=== PATIENT | male | born 1960 | race Caucasian/White ===

== ENCOUNTER 2017-06-06 05:15 | Inpatient (IN) | payer OTHER ==
[2017-06-06] VITALS (20 sets, daily range): BP systolic 106–149; BP diastolic 55–90; PULSE 52–90; RESP 15–32; Ht 170.2 cm; Wt 73.1 kg
[~2017-06-06] VITALS: Ht 170.2 cm; Wt 73.1 kg
--- NOTE | 2017-06-06 05:59 | RADRPT ---
PROCEDURE: XR Chest. CLINICAL INDICATION: Preoperative, sigmoid colon cancer TECHNIQUE: Single frontal view of the chest was obtained COMPARISON: None FINDINGS: The heart and mediastinum are within normal limits. There is mild left lower lobe linear atelectasis. The lungs are otherwise clear. There is no pleural effusion or pneumothorax. RPTAT: AA IMPRESSION: Mild left lower lobe linear atelectasis. .Anil Latif MD, MD Date Time Electronically viewed and signed by .Anil Latif MD, on 06/06/2017 05:58 .S/
[2017-06-06 06:30] LABS: BASOPHILS % 0.5 % (0.0-2.0); EOSINOPHILS # 0.1 10^3/ul (0.0-0.5); EOSINOPHILS % 1.2 % (0.0-7.0); HEMATOCRIT 37.8 % (42.0-52.0); HEMOGLOBIN 12.9 g/dl (14.0-18.0); LYMPHOCYTES # 1.4 10^3/ul (0.8-2.9); LYMPHOCYTES % 23.3 % (15.0-51.0); MEAN CORPUSCULAR HEMOGLOBIN 30.4 pg (29.0-33.0); MEAN CORPUSCULAR HGB CONC 34.1 g/dl (32.0-37.0); MEAN CORPUSCULAR VOLUME 89.2 fl (82.0-101.0); MEAN PLATELET VOLUME 9.5 fl (7.4-10.4); MONOCYTE # 0.4 10^3/ul (0.3-0.9); MONOCYTES % 6.7 % (0.0-11.0); NEUTROPHILS % 68.1 % (39.0-77.0); PLATELET COUNT 169 10^3/UL (140-415); RED BLOOD COUNT 4.24 10^6/ul (4.70-6.10); RED CELL DISTRIBUTION WIDTH 13.3 % (11.5-14.5)
[2017-06-06 06:51] LABS: INR 1.05; PROTIME 13.7 Sec (12.2-14.2); PT RATIO 1.1
[2017-06-06 06:52] LABS: PARTIAL THROMBOPLASTIN TIME 30.2 Sec (25.0-35.0)
[2017-06-06 07:09] LABS: ALBUMIN/GLOBULIN RATIO 1.33; BILIRUBIN,INDIRECT 0.6 mg/dl (0-1.1); BILIRUBIN,TOTAL 0.6 mg/dl (0.2-1.3)
[2017-06-06 07:18] LABS: CREATININE 0.78 mg/dl (0.61-1.24); POTASSIUM 3.9 mmol/L (3.5-5.1)
[2017-06-06] MEDS ORDERED: MIDAZOLAM 1 MG/ML 2 ML INJ ONE (07:48)
[2017-06-06] MEDS ORDERED: morphine SULFATE/PF (10 MG/10 ML) INJ ONE (07:49)
[2017-06-06] MEDS ORDERED: AMPICILLIN/SULB 3 GM/NS (PMX) 100 ML IVPB ONE (08:46)
[2017-06-06] MEDS ORDERED: BUPIVACAINE 0.25%/EPI (SDV) 30 ML INJ ONE (09:02)
--- NOTE | 2017-06-06 11:31 | SIPON ---
Date/Time of Note Date/Time of Note DATE: 06/06/17 TIME: 11:30 Operative Report Preoperative Diagnosis Invasive rectosigmoid cancer Postoperative Diagnosis Same Operation/Procedure Performed Exploratory laparotomy mobilization of left colon with mobilization of the splenic flexure resection of rectal low anterior resection of rectal cancer Surgeon: CAT ECHOLS MD clinical lab assistant: ISAMAR GODINEZ MD Anesthesia Type: general Estimated Blood Loss: 100 - 150 ml's Transfusion Required: no Specimens Rectosigmoid colon specimen Grafts/Implants: none Complications: no CAT ECHOLS MD Jun 06, 2017 11:31
[2017-06-06] MEDS: D5W-0.45 NACL + KCL 20 MEQ 1,000 ML IV SCH ×2 (11:32→19:31)
[2017-06-06] MEDS ORDERED: LIDOCAINE 2% (SDV) 5 ML INJ ONE (11:44)
[2017-06-06] MEDS ORDERED: GLYCOPYRROLATE 0.4 MG INJ ONE (11:44)
[2017-06-06] MEDS ORDERED: PROPOFOL 20 ML ONE (11:44)
[2017-06-06] MEDS ORDERED: ROCURONIUM 50 MG INJ ONE (11:44)
[2017-06-06] MEDS ORDERED: NEOSTIGMINE 3 MG/3 ML SYRINGE ONE (11:44)
[2017-06-06] MEDS ORDERED: ONDANSETRON 4 MG INJ ONE ×2 (11:45→12:28)
[2017-06-06] MEDS ORDERED: morphine 1 MG/ML 30 ML (PCA) IV SCH (12:00)
--- NOTE | 2017-06-06 12:07 | OPR ---
DATE OF OPERATION: 06/06/2017 PREOPERATIVE DIAGNOSIS: Rectosigmoid cancer. POSTOPERATIVE DIAGNOSIS: Rectal cancer. OPERATION PERFORMED: Exploratory laparotomy, mobilization of left colon with mobilization of the splenic flexure and low anterior colon resection, rigid sigmoidoscopy. ANESTHESIA: General. ANESTHESIOLOGIST: Dr. Briseno. SURGEON: Dr. Thayer. RECREATION MANAGER: Dr. Farrukh Ni. INDICATIONS FOR PROCEDURE: The patient is an unfortunate 57-year- old male, who presented with rectal bleeding for approximately 2 months. Ventral workup including colonoscopy revealed a large malignancy thought to be about 10 cm from the anal verge. The patient was counseled as to the risks versus benefits of surgery, consented and was scheduled for surgery. OPERATIVE PROCEDURE: On the evening before surgery, the patient was instructed to take a bowel prep, which he successfully completed. On the morning of surgery, he was brought to the operating theater. An epidural catheter was placed. He was then placed under general endotracheal tube anesthesia. Witt catheter was also placed. The abdomen was shaved, prepped and draped in usual sterile fashion. The patient was also placed into the lithotomy position. A lower midline incision was made with 15 blade scalpel. Subcutaneous tissue was dissected with cautery down to the anterior rectus sheath. The linea alba was incised and the abdomen was entered without difficulty. The fascia was then incised throughout the length of the incision. The Bookwalter retractor was placed. Excellent exposure was obtained. The patient was put in Trendelenburg position to facilitate packing away the small intestine to the upper quadrants of the abdomen. Mobilization of the left colon then took place by incising the left white line of Toldt. This continued up into the splenic flexure. The splenic flexure was further mobilized. The pelvis was inspected. The tumor was lower than anticipated. It was approximately 5 cm above the anal verge. Perineum on either side of the rectum was incised with cautery and dissection continued anteriorly until the rectum was mobilized sufficiently. At this point, a suitable point of transection of the rectosigmoid colon was identified, cleared of its mesentery and it was transected with a JOVANNY stapler. A meticulous dissection of the mesorectum then took place with combination of cautery and the LigaSure device. With the rectum fully mobilized to a point approximately 5 cm below the palpable tumor, the rectum was transected distally using the contour TA stapler. Attending pathologist, Dr. Elisa Marquez, came into the room and took the specimen. He performed gross analysis and stated that the margins were clear by at least 5 cm both proximally and distally. At this point, the specimen was sent for permanent pathologic analysis. The pelvis was irrigated. Minimal bleeding was controlled with cautery. The sigmoid colon was then elevated. The staple line was transected with cautery and the sizers were used. It was determined that the size 29 EEA stapler would be suitable. The #29 anvil was then placed into the open end of the sigmoid colon and a pursestring suture of 2-0 Prolene was placed and tied down in the standard fashion. Dr. Thayer then went below and dilated the colon with the Sizer devices and then the EEA was then inserted and the anastomosis was created with the EEA in the standard fashion. Rigid colonoscopy was then performed while the pelvis was filled with warm saline. There was no evidence of leak. At this point, Dr. Thayer re-scrubbed and gowned and gloved, and returned to the abdomen. Final irrigation and inspection took place. There was no evidence of bleeding. An NG-tube was placed, and palpated to ensure it was in proper location within the stomach. The Bookwalter retractor and all laps and sponges were removed. Lap, sponge, and instrument counts were correct. The lower midline fascial incision was then reapproximated with #1 looped PDS sutures in running fashion. The wound was then irrigated with Betadine and the skin was reapproximated with skin shaheen. The patient tolerated the procedure well. ESTIMATED BLOOD LOSS: Approximately 150 cc. COMPLICATIONS: There were no complications. DISPOSITION: The patient was transported in stable condition to the recovery room. Dictated By: Jaswinder Thayer MD /paola/erika /Document#: [id number]
[2017-06-06] MEDS ORDERED: ALBUTEROL 0.083% (NEB) 2.5 MG/3 ML AMP HHN STA (12:10)
[2017-06-06] MEDS ORDERED: FENTAnyl 2MCG/ML-ROPIV 0.2% 0 ML ONE (12:14)
[2017-06-06] MEDS ORDERED: FENTAnyl 50 MCG/ML VIAL ONE (12:27)
[2017-06-06] MEDS ORDERED: MEPERIDINE 25 MG INJ ONE (12:28)
[2017-06-06] MEDS ORDERED: NALOXONE (0.4 MG/ML) INJ IV PRN (12:30)
[2017-06-06] MEDS ORDERED: MEPERIDINE 25 MG INJ IV PRN (12:30)
[2017-06-06] MEDS ORDERED: DIPHENHYDRAMINE 50 MG INJ IV PRN (12:30)
[2017-06-06] MEDS ORDERED: FENTAnyl 50 MCG/ML VIAL IV PRN (12:30)
[2017-06-06] MEDS ORDERED: ONDANSETRON 4 MG INJ IV PRN (12:30)
[2017-06-06] MEDS ORDERED: morphine (1 MG/ML) 10ML SYRINGE IV PRN (12:30)
[2017-06-06] MEDS ORDERED: ALBUTEROL 0.083% (NEB) 2.5 MG/3 ML AMP HHN PRN (12:30)
[2017-06-06] MEDS: ONDANSETRON 4 MG INJ IV PRN (12:45)
[2017-06-06] MEDS: LORAZEPAM 2 MG INJ IV PRN (17:06)
[2017-06-06] MEDS: ALBUTEROL 0.083% (NEB) 2.5 MG/3 ML AMP HHN PRN ×2 (17:48→23:51)
[2017-06-06] MEDS: FENTAnyl 2MCG/ML-ROPIV 0.2% 100 ML BAG EPI SCH (18:44)
--- NOTE | 2017-06-06 21:04 | HP ---
DATE OF ADMISSION: 06/06/2017 CHIEF COMPLAINT: Patient is a 57-year-old gentleman who was recently admitted at [facility] because of anemia and was diagnosed with sigmoid colon mass. Patient subsequently underwent a colonoscopy by Dr. Ohara and was diagnosed with cancer. Biopsy came back positive for adenocarcinoma, well differentiated. CT scan of the abdomen and pelvis revealed mild hepatomegaly, contracted gallbladder without gallstones, mildly enlarged prostate. Patient was subsequently referred to Dr. Thayer and was brought into the hospital today. Patient underwent surgery. Patient postoperatively denied any chest pain, no shortness of breath, no fever or chills. Patient denied any leg pain. Patient does have postoperative pain and also discomfort from NG tube. Rest of the review of systems unremarkable. PAST SURGICAL HISTORY: None. ALLERGIES: PATIENT STATES THAT IBUPROFEN CAUSES ANXIETY AND AGITATION. SOCIAL HISTORY: No smoking. No alcohol. FAMILY HISTORY: Noncontributory. PHYSICAL EXAMINATION: GENERAL: Patient conscious, awake, alert. VITAL SIGNS: Temperature 98.5, pulse 92, respirations 18, blood pressure 112/55, O2 sat 98 percent on 1 L. HEENT: No eye discharge or drainage. Extraocular movements intact. Oropharynx grossly negative. NECK: No mass. CHEST: Fairly clear. CARDIOVASCULAR: S1, S1 normal. No murmur. ABDOMEN: Patient is status post recent surgery. EXTREMITIES: No leg edema. Pedal pulses palpable. NEUROLOGIC: Patient is awake, alert, with no gross focal deficits. LABORATORY: WBC 6, hemoglobin 12.4, platelets 169. Chem-18 normal. IMPRESSION: Sigmoid colon cancer, status post low anterior colon resection. PLAN: Patient admitted on medical floor. Patient will be kept n.p.o., NG to low suction. Patient will be given IV fluid, IV pain medicine, IV Zofran, SCD for DVT prophylaxis. Patient does appear to be anxious. Therefore, we will give IV Ativan on a p.r.n. basis. Patient was having difficulty in expectorating earlier. Therefore, will add breathing treatment to optimize sputum mobilization. In addition, patient has been advised to use incentive spirometry. Dictated By: Shaun Plunkett MD /paola/elenita /Document#: [id number]
[2017-06-07] MEDS: ACETAMINOPHEN 1000MG/100ML IV 100 ML IVPB PRN ×3 (00:38→19:53)
[2017-06-07 01:58] VITALS: BP 105/55; RESP 19
[2017-06-07] MEDS: FENTAnyl 2MCG/ML-ROPIV 0.2% 100 ML BAG EPI SCH ×3 (02:21→17:39)
[2017-06-07] MEDS: D5W-0.45 NACL + KCL 20 MEQ 1,000 ML IV SCH ×3 (03:59→16:32)
[2017-06-07 07:00] VITALS: BP 133/67; RESP 18
[2017-06-07 10:55] LABS: BASOPHILS % 0.2 % (0.0-2.0); EOSINOPHILS % 0.1 % (0.0-7.0); HEMATOCRIT 37.4 % (42.0-52.0); HEMOGLOBIN 12.5 g/dl (14.0-18.0); LYMPHOCYTES # 1.1 10^3/ul (0.8-2.9); LYMPHOCYTES % 11.4 % (15.0-51.0); MEAN CORPUSCULAR HEMOGLOBIN 30.1 pg (29.0-33.0); MEAN CORPUSCULAR HGB CONC 33.4 g/dl (32.0-37.0); MEAN CORPUSCULAR VOLUME 90.1 fl (82.0-101.0); MEAN PLATELET VOLUME 9.7 fl (7.4-10.4); MONOCYTE # 0.9 10^3/ul (0.3-0.9); MONOCYTES % 9.4 % (0.0-11.0); NEUTROPHILS % 78.7 % (39.0-77.0); PLATELET COUNT 144 10^3/UL (140-415); RED BLOOD COUNT 4.15 10^6/ul (4.70-6.10); RED CELL DISTRIBUTION WIDTH 13.2 % (11.5-14.5); WHITE BLOOD COUNT 9.5 10^3/ul (4.8-10.8)
[2017-06-07] MEDS: morphine 2 MG INJ IV PRN ×2 (11:18→12:50)
[2017-06-07 11:22] LABS: INR 1.25; PROTIME 15.8 Sec (12.2-14.2); PT RATIO 1.2
[2017-06-07 11:23] LABS: CALCIUM 8.6 mg/dl (8.4-10.2); CREATININE 0.8 mg/dl (0.61-1.24); MAGNESIUM 1.9 mg/dl (1.7-2.5); PARTIAL THROMBOPLASTIN TIME 30.9 Sec (25.0-35.0); PHOSPHORUS 2.6 mg/dl (2.5-4.9); POTASSIUM 4.2 mmol/L (3.5-5.1)
--- NOTE | 2017-06-07 12:02 | PN ---
Date/Time of Note Date/Time of Note DATE: 06/07/17 TIME: 11:56 Assessment/Plan VTE Prophylaxis VTE Prophylaxis Intervention: SCD's Lines/Catheters IV Catheter Type (from Nrsg): Peripheral IV Urinary Cath still in place: Yes Reason Cath still needed: urinary retention Assessment/Plan Assessment/Plan Postop day #1 status post laparotomy and low anterior resection of the cancer of the rectosigmoid. Vital sign is stable. Urine output is adequate. Tube connected to intermittent suction functioning no bilious drainage. Then using incentive spirometry tidal volume maximum of 1500. 4 patient is a stable plan continue current care. Epidural to be DC'd per anesthesiologist instruction. Subjective 24 Hr Interval Summary Free Text/Dictation Postop day #1 Feels better than yesterday. No nausea no vomiting. No BM no passing flatus. As of the epidural patient is in bed rest. acetaminophen IV 1 g for pain control Exam/Review of Systems Vital Signs Vitals Vital Signs Date Time Temp Pulse Resp B/P Pulse Ox O2 Delivery O2 Flow Rate FiO2 06/07/17 08:45 Nasal Cannula 2.0 06/07/17 07:00 98.8 80 18 133/67 99 Intake and Output 06/06/17 06/06/17 06/07/17 14:59 22:59 06:59 Intake Total 1700 ml 1012 ml 1200 ml Output Total 75 ml 1010 ml 2100 ml Balance 1625 ml 2 ml -900 ml Exam Awake alert oriented 3. Temperature temperature maximum 98.8. G-tube to intermittent suction has drained 110 cc of gastric juice no bile in it. Abdomen not distended relatively soft. Bowel sounds hypoactive. Results Result Diagram: 06/07/17 1028 06/07/17 1028 Results 24 hrs Laboratory Tests Test 06/07/17 10:28 White Blood Count 9.5 # Red Blood Count 4.15 L Hemoglobin 12.5 L Hematocrit 37.4 L Mean Corpuscular Volume 90.1 Mean Corpuscular Hemoglobin 30.1 Mean Corpuscular Hemoglobin Concent 33.4 Red Cell Distribution Width 13.2 Platelet Count 144 Mean Platelet Volume 9.7 Neutrophils % 78.7 H Lymphocytes % 11.4 L Monocytes % 9.4 Eosinophils % 0.1 Basophils % 0.2 Nucleated Red Blood Cells % 0.0 Neutrophils # (Manual) 7.5 Lymphocytes # 1.1 Monocytes # 0.9 Eosinophils # 0.0 Basophils # 0.0 Nucleated Red Blood Cells # 0.0 Prothrombin Time 15.8 H Prothrombin Time Ratio 1.2 INR International Normalized Ratio 1.25 Activated Partial Thromboplast Time 30.9 Sodium Level 136 Potassium Level 4.2 Chloride Level 102 Carbon Dioxide Level 28 Anion Gap 10 Blood Urea Nitrogen 7 Creatinine 0.80 Glucose Level 111 Calcium Level 8.6 Phosphorus Level 2.6 Magnesium Level 1.9 Medications Medications Current Medications Ondansetron HCl (Zofran Inj) 4 mg Q6H PRN IV NAUSEA AND/OR VOMITING Last administered on 06/06/17 12:45; Admin Dose 4 MG; Start 06/06/17 at 12:00 Morphine Sulfate 2 MG/HR CONTINUOUS RATE 2... Q4PCA IV ; Start 06/06/17 at 12:00 Potassium Chloride/Dextrose/ Sod Cl 1,000 ml @ 125 mls/hr Q8H IV Last administered on 06/07/17 08:28; Admin Dose 125 MLS/HR; Start 06/06/17 at 11:32 Acetaminophen (Ofirmev 1000mg/ 100ml Iv) 100 ml @ 400 mls/hr Q6H PRN IVPB PAIN Last administered on 06/07/17 00:38; Admin Dose 400 MLS/HR; Start 06/06/17 at 12:00 Naloxone HCl (Narcan) 0.2 mg Q2M PRN IV FOR RESP RATE 8 OR LESS; Start 06/06/17 at 12:30 Lorazepam (Ativan) 0.5 mg Q6H PRN IV ANXIETY Last administered on 06/06/17 17: 06; Admin Dose 0.5 MG; Start 06/06/17 at 17:00 Phenol (Chloraseptic Throat [place]) 2 spray Q2H PRN MT SORE THROAT; Start at 20:00 Morphine Sulfate (morphine) 2 mg Q1HWA PRN IV PAIN LEVEL 7-10 Last administered on 06/07/17 11:18; Admin Dose 2 MG; Start 06/07/17 at 01:30 ISAMAR GODINEZ MD Jun 07, 2017 12:02
[2017-06-07 14:00] VITALS: BP 140/75; RESP 18
--- NOTE | 2017-06-07 14:57 | PN ---
Date/Time of Note Date/Time of Note DATE: 06/07/17 TIME: 14:54 Assessment/Plan Lines/Catheters IV Catheter Type (from Nrsg): Peripheral IV Urinary Cath still in place: Yes Assessment/Plan Assessment/Plan - Febrile condition- sp post op - Tylenol, cooling measures - per surgery - cont to monitor - status post low anterior colon resection. - per surgery - pain control - IVF -- Sigmoid colon cancer Subjective 24 Hr Interval Summary Constitutional: requiring IVF Respiratory: no complaints Cardiovascular: no complaints Gastrointestinal: pain Genitourinary: no complaints Musculoskeletal: no complaints Skin: no complaints Exam/Review of Systems Vital Signs Vitals Vital Signs Date Time Temp Pulse Resp B/P Pulse Ox O2 Delivery O2 Flow Rate FiO2 06/07/17 14:45 100.0 06/07/17 14:00 85 18 140/75 98 06/07/17 08:45 Nasal Cannula 2.0 Intake and Output 06/06/17 06/06/17 06/07/17 15:00 23:00 07:00 Intake Total 1700 ml 1012 ml 1200 ml Output Total 75 ml 1010 ml 2100 ml Balance 1625 ml 2 ml -900 ml Exam Constitutional: alert, oriented, well developed Respiratory: diminished breath sounds Cardiovascular: nl pulses, regular rate and rhythm Gastrointestinal: other, soft Musculoskeletal: nl extremities to inspection Extremities: normal pulses Neurological: nl mental status, nl speech Results Result Diagram: 06/07/17 1028 06/07/17 1028 Results 24 hrs Laboratory Tests Test 06/07/17 10:28 White Blood Count 9.5 # Red Blood Count 4.15 L Hemoglobin 12.5 L Hematocrit 37.4 L Mean Corpuscular Volume 90.1 Mean Corpuscular Hemoglobin 30.1 Mean Corpuscular Hemoglobin Concent 33.4 Red Cell Distribution Width 13.2 Platelet Count 144 Mean Platelet Volume 9.7 Neutrophils % 78.7 H Lymphocytes % 11.4 L Monocytes % 9.4 Eosinophils % 0.1 Basophils % 0.2 Nucleated Red Blood Cells % 0.0 Neutrophils # (Manual) 7.5 Lymphocytes # 1.1 Monocytes # 0.9 Eosinophils # 0.0 Basophils # 0.0 Nucleated Red Blood Cells # 0.0 Prothrombin Time 15.8 H Prothrombin Time Ratio 1.2 INR International Normalized Ratio 1.25 Activated Partial Thromboplast Time 30.9 Sodium Level 136 Potassium Level 4.2 Chloride Level 102 Carbon Dioxide Level 28 Anion Gap 10 Blood Urea Nitrogen 7 Creatinine 0.80 Glucose Level 111 Calcium Level 8.6 Phosphorus Level 2.6 Magnesium Level 1.9 Medications Medications Current Medications Ondansetron HCl (Zofran Inj) 4 mg Q6H PRN IV NAUSEA AND/OR VOMITING Last administered on 06/06/17 12:45; Admin Dose 4 MG; Start 06/06/17 at 12:00 Morphine Sulfate 2 MG/HR CONTINUOUS RATE 2... Q4PCA IV ; Start 06/06/17 at 12:00 Potassium Chloride/Dextrose/ Sod Cl 1,000 ml @ 125 mls/hr Q8H IV Last administered on 06/07/17 08:28; Admin Dose 125 MLS/HR; Start 06/06/17 at 11:32 Acetaminophen (Ofirmev 1000mg/ 100ml Iv) 100 ml @ 400 mls/hr Q6H PRN IVPB PAIN Last administered on 06/07/17 13:59; Admin Dose 400 MLS/HR; Start 06/06/17 at 12:00 Naloxone HCl (Narcan) 0.2 mg Q2M PRN IV FOR RESP RATE 8 OR LESS; Start 06/06/17 at 12:30 Lorazepam (Ativan) 0.5 mg Q6H PRN IV ANXIETY Last administered on 06/06/17 17: 06; Admin Dose 0.5 MG; Start 06/06/17 at 17:00 Phenol (Chloraseptic Throat [place]) 2 spray Q2H PRN MT SORE THROAT; Start at 20:00 Morphine Sulfate (morphine) 2 mg Q1HWA PRN IV PAIN LEVEL 7-10 Last administered on 06/07/17 12:50; Admin Dose 2 MG; Start 06/07/17 at 01:30 KERRY RECINOS Jun 07, 2017 14:57
[2017-06-07] MEDS: ALBUTEROL 0.083% (NEB) 2.5 MG/3 ML AMP HHN PRN (18:09)
--- NOTE | 2017-06-07 19:16 | RADRPT ---
Vent Rate: 52 bpm RR Interval: 0 msec MO Interval: 164 msec QRS Duration: 82 msec QT Interval: 418 msec QTC Interval: 388 msec P-R-T [place]: 61 - 59 - 62 degrees Sinus bradycardia Otherwise normal ECG Electronically Signed By: William Loaiza [id number]
[2017-06-07] MEDS: LORAZEPAM 2 MG INJ IV PRN (19:29)
[2017-06-07 19:50] VITALS: BP 135/73; RESP 20
[2017-06-08] MEDS: FENTAnyl 2MCG/ML-ROPIV 0.2% 100 ML BAG EPI SCH ×4 (00:44→22:10)
[2017-06-08] MEDS: D5W-0.45 NACL + KCL 20 MEQ 1,000 ML IV SCH ×4 (00:46→17:37)
[2017-06-08] MEDS: ACETAMINOPHEN 1000MG/100ML IV 100 ML IVPB PRN ×2 (02:16→20:11)
[2017-06-08] MEDS: morphine 2 MG INJ IV PRN ×2 (02:17→12:27)
[2017-06-08 02:27] VITALS: BP 131/80; RESP 18
[2017-06-08 07:40] VITALS: BP 126/70; RESP 20
[2017-06-08 10:16] LABS: ABNORMAL IP MESSAGE 1; BASOPHILS % 0.2 % (0.0-2.0); HEMATOCRIT 37.9 % (42.0-52.0); HEMOGLOBIN 13.2 g/dl (14.0-18.0); LYMPHOCYTES # 0.5 10^3/ul (0.8-2.9); LYMPHOCYTES % 3.4 % (15.0-51.0); MEAN CORPUSCULAR HEMOGLOBIN 30.7 pg (29.0-33.0); MEAN CORPUSCULAR HGB CONC 34.8 g/dl (32.0-37.0); MEAN CORPUSCULAR VOLUME 88.1 fl (82.0-101.0); MEAN PLATELET VOLUME 9.4 fl (7.4-10.4); MONOCYTES % 6.7 % (0.0-11.0); NEUTROPHILS % 89.2 % (39.0-77.0); PLATELET COUNT 153 10^3/UL (140-415); POSITIVE DIFF @See below; RED CELL DISTRIBUTION WIDTH 13.4 % (11.5-14.5); WHITE BLOOD COUNT 14.8 10^3/ul (4.8-10.8)
[2017-06-08 10:39] LABS: CALCIUM 9.1 mg/dl (8.4-10.2); CREATININE 0.79 mg/dl (0.61-1.24); MAGNESIUM 1.8 mg/dl (1.7-2.5); PHOSPHORUS 2.5 mg/dl (2.5-4.9); POTASSIUM 4.1 mmol/L (3.5-5.1)
[2017-06-08 13:09] LABS: INR 1.26; PROTIME 15.9 Sec (12.2-14.2); PT RATIO 1.2
[2017-06-08 13:10] LABS: PARTIAL THROMBOPLASTIN TIME 39.4 Sec (25.0-35.0)
[2017-06-08 15:24] VITALS: BP 124/68; RESP 20
[2017-06-08 15:46] LABS: ADD UMIC YES; UR ASCORBIC ACID NEGATIVE (NEGATIVE); UR BILIRUBIN (Dip) NEGATIVE (NEGATIVE); UR BLOOD (Dip) 3+ mg/dL (NEGATIVE); UR CLARITY CLEAR (CLEAR); UR COLOR YELLOW (YELLOW); UR GLUCOSE (Dip) NEGATIVE (NEGATIVE); UR KETONES (Dip) NEGATIVE (NEGATIVE); UR LEUKOCYTE ESTERASE (Dip) NEGATIVE Leu/ul (NEGATIVE); UR NITRITE (Dip) NEGATIVE (NEGATIVE); UR RBC 171 /HPF (0-5); UR SPECIFIC GRAVITY (Dip) 1.013 (1.003-1.030); UR TOTAL PROTEIN (Dip) 1+ mg/dl (NEGATIVE); UR UROBILINOGEN (Dip) 1+ mg/dL (NEGATIVE)
--- NOTE | 2017-06-08 16:15 | RADRPT ---
PROCEDURE: Chest radiograph CLINICAL INDICATION: Fever. PICC placement. COMPARISON: Radiograph from 06/06/2017. TECHNIQUE: Single frontal chest radiograph. FINDINGS: The left PICC terminates in the upper aspect of the right atrium. The lungs are clear. No pleural effusion or focal parenchymal opacity. The cardiomediastinal silhouette is normal. No suspicious bone lesion. IMPRESSION: 1. The left PICC terminates in the upper aspect of the right atrium. 2. No acute cardiopulmonary abnormality. Results discussed with treatment team at 4:10 p.m. 06/08/2017 RPTAT: [facility] Physician Que Date Time Electronically viewed and signed by Physician Que on 06/08/2017 16:14 LG/
--- NOTE | 2017-06-08 16:33 | PN ---
Date/Time of Note Date/Time of Note DATE: 06/08/17 TIME: 16:20 Assessment/Plan VTE Prophylaxis VTE Prophylaxis Intervention: SCD's Lines/Catheters IV Catheter Type (from Nrs): Peripheral IV Urinary Cath still in place: Yes Reason Cath still needed: urinary retention, other (indicate) (Patient is status post pelvic manipulation and resection of the rectosigmoid cancer postop day #2. Also patient is on epidural anesthesia. To prevent urinary retention we will continue to keep the Witt catheter till the patient is fully ambulated on the epidural is stopped.) Assessment/Plan Assessment/Plan 57-year-old gentleman status post low anterior resection of rectosigmoid colon for cancer of the colon. Last night patient has a started to run temperature 100.2 today increased to 100.4 and tachycardia. Patient has cough productive of yellowish sputum for appears that the temprature is from the lungs. Ready blood culture urine culture has been sent and we are going to get a chest x-ray and also I am going to start the patient on Zosyn antibiotics. Also encouraged vigorous use of incentive spirometry. Subjective 24 Hr Interval Summary Free Text/Dictation Postop day #2. Status post laparotomy low anterior resection of the rectal sigmoid cancer of colon. No specific complaint. But he has been running fever since last night temperature maximum 100.2 100.4. He is on epidural for pain. Also has been receiving Tylenol 1 g IV every 6 hours for temperature and pain. No nausea no vomiting. No bowel movement. Exam/Review of Systems Vital Signs Vitals Vital Signs Date Time Temp Pulse Resp B/P Pulse Ox O2 Delivery O2 Flow Rate FiO2 06/08/17 15:24 99.9 116 20 124/68 98 06/08/17 08:50 Nasal Cannula 2.0 Intake and Output 06/07/17 06/07/17 06/08/17 15:00 23:00 07:00 Intake Total 1100 ml 1160 ml 1040 ml Output Total 1600 ml 1650 ml Balance 1100 ml -440 ml -610 ml Exam Awake alert oriented 3. Temperature maximum today afternoon 100.4 heart rate increased up to 120. UBC today 14,800 with 89% neutrophils. Which is shift to the left. Lactic acid is 2.1 normal is up to 2. Single examination heart regular heart rate is increased. Lungs harsh breathing sounds especially on the right side. No tubular sounds. No wheezing Them and is not distended is soft bowel sound present 1-2+/4+. G-tube was drained 200 cc today is gastric juice. Legs there is no calf tenderness. While he was asking patient to use the incentive spirometry he has started coughing and he had productive cough the yellowish sputum was brought up, most probably the cause of fever released from the lungs, we are going to get a chest x-ray to make sure what is going on with his lungs. Results Result Diagram: 06/08/17 0945 06/08/17 0945 Results 24 hrs Laboratory Tests Test 06/08/17 09:45 06/08/17 12:19 06/08/17 13:30 06/08/17 15:20 White Blood Count 14.8 #H Red Blood Count 4.30 L Hemoglobin 13.2 L Hematocrit 37.9 L Mean Corpuscular Volume 88.1 Mean Corpuscular Hemoglobin 30.7 Mean Corpuscular Hemoglobin Concent 34.8 Red Cell Distribution Width 13.4 Platelet Count 153 Mean Platelet Volume 9.4 Neutrophils % 89.2 H Lymphocytes % 3.4 L Monocytes % 6.7 Eosinophils % 0.0 Basophils % 0.2 Nucleated Red Blood Cells % 0.0 Neutrophils # (Manual) 13.2 H Lymphocytes # 0.5 L Monocytes # 1.0 H Eosinophils # 0.0 Basophils # 0.0 Nucleated Red Blood Cells # 0.0 Sodium Level 136 Potassium Level 4.1 Chloride Level 99 Carbon Dioxide Level 28 Anion Gap 13 Blood Urea Nitrogen 7 Creatinine 0.79 Glucose Level 133 Calcium Level 9.1 Phosphorus Level 2.5 Magnesium Level 1.8 Prothrombin Time 15.9 H Prothrombin Time Ratio 1.2 INR International Normalized Ratio 1.26 Activated Partial Thromboplast Time 39.4 H Lactic Acid Level 2.1 H Urine Color YELLOW Urine Clarity CLEAR Urine pH 8.0 Urine Specific [place] 1.013 Urine Ketones NEGATIVE Urine Nitrite NEGATIVE Urine Bilirubin NEGATIVE Urine Urobilinogen 1+ H Urine Leukocyte Esterase NEGATIVE Urine Microscopic RBC 171 H Urine Microscopic WBC 9 H Urine Hemoglobin 3+ H Urine Glucose NEGATIVE Urine Total Protein 1+ H Medications Medications Current Medications Ondansetron HCl (Zofran Inj) 4 mg Q6H PRN IV NAUSEA AND/OR VOMITING Last administered on 06/06/17t 12:45; Admin Dose 4 MG; Start 06/06/17 at 12:00 Morphine Sulfate 2 MG/HR CONTINUOUS RATE 2... Q4PCA IV ; Start 06/06/17 at 12:00 Potassium Chloride/Dextrose/ Sod Cl 1,000 ml @ 125 mls/hr Q8H IV Last administered on 06/08/17 12:26; Admin Dose 125 MLS/HR; Start 06/06/17 at 11:32 Acetaminophen (Ofirmev 1000mg/ 100ml Iv) 100 ml @ 400 mls/hr Q6H PRN IVPB PAIN Last administered on 06/08/17 02:16; Admin Dose 400 MLS/HR; Start 06/06/17 at 12:00 Naloxone HCl (Narcan) 0.2 mg Q2M PRN IV FOR RESP RATE 8 OR LESS; Start 06/06/17 at 12:30 Lorazepam (Ativan) 0.5 mg Q6H PRN IV ANXIETY Last administered on 06/07/17 19: 29; Admin Dose 0.5 MG; Start 06/06/17 at 17:00 Phenol (Chloraseptic Throat [place]) 2 spray Q2H PRN MT SORE THROAT; Start at 20:00 Morphine Sulfate 2 mg 2 mg Q1HWA PRN IV PAIN LEVEL 7-10 Last administered on 12:27; Admin Dose 2 MG; Start 06/07/17 at 01:30 Piperacillin Sod/ Tazobactam Sod (Zosyn 3.375gm/ 100 ml (Pmx)) 100 ml @ 200 mls /hr Q6 IVPB ; Start 06/08/17 at 18:00 ISAMAR GODINEZ MD Jun 08, 2017 16:32
--- NOTE | 2017-06-08 17:32 | RADRPT ---
AMENDMENT: 06/08/2017 9:04:17 PM Grzegorz Vargas MD ADDENDUM: Original report referenced an incorrect study. Report Corrections: COMPARISON: 06/06/2017 FINDINGS: There is placement of an enteric tube which can be followed to the region of the GE junction. The ti p is not seen. Additional tubing overlies the thorax, and is likely outside of the patient's body. T he lungs are clear. No focal opacification is seen. No pneumothorax or pleural effusion is seen. The cardiomediastinal silhouette is unremarkable. The osseous structures are grossly unremarkable. IMPRESSION: 1. No evidence of acute cardiopulmonary disease. 2. Interval placement of an enteric tube which can be followed to the region of the GE junction. Th e tip is not seen. PROCEDURE: XR Chest. CLINICAL INDICATION: Fever. Infection. TECHNIQUE: Single frontal chest x-ray. COMPARISON: 06/08/2017 04:06 p.m. FINDINGS: There is interval removal of the left. There is placement of an enteric tube which can be followed t o the region of the GE junction. The tip is not seen. Additional tubing overlies the thorax, and is likely outside of the patient's body. The lungs are clear. No focal opacification is seen. No pneu mothorax or pleural effusion is seen. The cardiomediastinal silhouette is unremarkable. The osseou s structures are grossly unremarkable. IMPRESSION: 1. No evidence of acute cardiopulmonary disease. 2. Interval removal of left PICC and placement of an enteric tube which can be followed to the naman on of the GE junction. The tip is not seen. RPTAT: JJ .Grzegorz Vargas MD, Date Time Electronically viewed and signed by .Grzegorz Vargas MD, on 06/08/2017 21:04 .K/
[2017-06-08] MEDS: PIPER-TAZO 3.375 GM IV (PMX) 100 ML IVPB SCH (17:37)
--- NOTE | 2017-06-08 18:33 | PN ---
Date/Time of Note Date/Time of Note DATE: 06/08/17 TIME: 18:30 Assessment/Plan VTE Prophylaxis VTE Prophylaxis Intervention: SCD's Lines/Catheters IV Catheter Type (from Nrsg): Peripheral IV Urinary Cath still in place: Yes Reason Cath still needed: urinary retention Assessment/Plan Assessment/Plan - Febrile condition- sp post op - Tylenol, cooling measures - per surgery - On Zosyn - cont to monitor - status post low anterior colon resection. - per surgery - pain control - IVF -- Sigmoid colon cancer Blaine Plunkett/staff Subjective 24 Hr Interval Summary Constitutional: requiring IVF, requiring O2 Respiratory: no complaints Cardiovascular: no complaints Gastrointestinal: no complaints Genitourinary: no complaints Musculoskeletal: no complaints Skin: bruising Exam/Review of Systems Vital Signs Vitals Vital Signs Date Time Temp Pulse Resp B/P Pulse Ox O2 Delivery O2 Flow Rate FiO2 06/08/17 15:24 99.9 116 20 124/68 98 06/08/17 08:50 Nasal Cannula 2.0 Intake and Output 06/07/17 06/07/17 06/08/17 15:00 23:00 07:00 Intake Total 1100 ml 1160 ml 1040 ml Output Total 1600 ml 1650 ml Balance 1100 ml -440 ml -610 ml Exam Constitutional: alert, oriented, well developed Respiratory: diminished breath sounds Gastrointestinal: other (NGT attached to LIS), soft, tender Musculoskeletal: nl extremities to inspection Extremities: normal pulses Neurological: nl mental status, nl speech Results Result Diagram: 06/08/17 0945 06/08/17 0945 Results 24 hrs Laboratory Tests Test 06/08/17 09:45 06/08/17 12:19 06/08/17 13:30 06/08/17 15:20 White Blood Count 14.8 #H Red Blood Count 4.30 L Hemoglobin 13.2 L Hematocrit 37.9 L Mean Corpuscular Volume 88.1 Mean Corpuscular Hemoglobin 30.7 Mean Corpuscular Hemoglobin Concent 34.8 Red Cell Distribution Width 13.4 Platelet Count 153 Mean Platelet Volume 9.4 Neutrophils % 89.2 H Lymphocytes % 3.4 L Monocytes % 6.7 Eosinophils % 0.0 Basophils % 0.2 Nucleated Red Blood Cells % 0.0 Neutrophils # (Manual) 13.2 H Lymphocytes # 0.5 L Monocytes # 1.0 H Eosinophils # 0.0 Basophils # 0.0 Nucleated Red Blood Cells # 0.0 Sodium Level 136 Potassium Level 4.1 Chloride Level 99 Carbon Dioxide Level 28 Anion Gap 13 Blood Urea Nitrogen 7 Creatinine 0.79 Glucose Level 133 Calcium Level 9.1 Phosphorus Level 2.5 Magnesium Level 1.8 Prothrombin Time 15.9 H Prothrombin Time Ratio 1.2 INR International Normalized Ratio 1.26 Activated Partial Thromboplast Time 39.4 H Lactic Acid Level 2.1 H Urine Color YELLOW Urine Clarity CLEAR Urine pH 8.0 Urine Specific [place] 1.013 Urine Ketones NEGATIVE Urine Nitrite NEGATIVE Urine Bilirubin NEGATIVE Urine Urobilinogen 1+ H Urine Leukocyte Esterase NEGATIVE Urine Microscopic RBC 171 H Urine Microscopic WBC 9 H Urine Hemoglobin 3+ H Urine Glucose NEGATIVE Urine Total Protein 1+ H Medications Medications Current Medications Ondansetron HCl (Zofran Inj) 4 mg Q6H PRN IV NAUSEA AND/OR VOMITING Last administered on 06/06/17 12:45; Admin Dose 4 MG; Start 06/06/17 at 12:00 Morphine Sulfate 2 MG/HR CONTINUOUS RATE 2... Q4PCA IV ; Start 06/06/17 at 12:00 Potassium Chloride/Dextrose/ Sod Cl 1,000 ml @ 125 mls/hr Q8H IV Last administered on 06/08/17 17:37; Admin Dose 125 MLS/HR; Start 06/06/17 at 11:32 Acetaminophen (Ofirmev 1000mg/ 100ml Iv) 100 ml @ 400 mls/hr Q6H PRN IVPB PAIN Last administered on 06/08/17 02:16; Admin Dose 400 MLS/HR; Start 06/06/17 at 12:00 Naloxone HCl (Narcan) 0.2 mg Q2M PRN IV FOR RESP RATE 8 OR LESS; Start 06/06/17 at 12:30 Lorazepam (Ativan) 0.5 mg Q6H PRN IV ANXIETY Last administered on 06/07/17 19: 29; Admin Dose 0.5 MG; Start 06/06/17 at 17:00 Phenol (Chloraseptic Throat [place]) 2 spray Q2H PRN MT SORE THROAT; Start at 20:00 Morphine Sulfate 2 mg 2 mg Q1HWA PRN IV PAIN LEVEL 7-10 Last administered on 12:27; Admin Dose 2 MG; Start 06/07/17 at 01:30 Piperacillin Sod/ Tazobactam Sod (Zosyn 3.375gm/ 100 ml (Pmx)) 100 ml @ 200 mls /hr Q6 IVPB Last administered on 06/08/17t 17:37; Admin Dose 200 MLS/HR; Start 06/08/17 at 18:00 KERRY RECINOS Jun 08, 2017 18:32
[2017-06-08] MEDS ORDERED: VANCOMYCIN IV PER PHARMACY XX SCH (19:00)
[2017-06-08 20:19] VITALS: BP 106/61; RESP 20
[2017-06-08] MEDS: VANCOMYCIN 1.5 GM in SOD CHLORIDE 0.9% 250 ML IVPB SCH ×2 (20:30→21:34)
[2017-06-09] MEDS: PIPER-TAZO 3.375 GM IV (PMX) 100 ML IVPB SCH ×5 (00:57→23:43)
[2017-06-09 02:29] VITALS: BP 104/60; RESP 18
[2017-06-09] MEDS: D5W-0.45 NACL + KCL 20 MEQ 1,000 ML IV SCH ×4 (03:32→19:32)
[2017-06-09 05:12] LABS: BASOPHILS % 0.2 % (0.0-2.0); EOSINOPHILS % 0.1 % (0.0-7.0); HEMATOCRIT 37.3 % (42.0-52.0); HEMOGLOBIN 12.7 g/dl (14.0-18.0); LYMPHOCYTES # 0.9 10^3/ul (0.8-2.9); LYMPHOCYTES % 6.2 % (15.0-51.0); MEAN CORPUSCULAR HEMOGLOBIN 30.1 pg (29.0-33.0); MEAN CORPUSCULAR VOLUME 88.4 fl (82.0-101.0); MEAN PLATELET VOLUME 9.1 fl (7.4-10.4); MONOCYTE # 0.8 10^3/ul (0.3-0.9); MONOCYTES % 5.4 % (0.0-11.0); NEUTROPHILS % 87.6 % (39.0-77.0); PLATELET COUNT 149 10^3/UL (140-415); RED BLOOD COUNT 4.22 10^6/ul (4.70-6.10); RED CELL DISTRIBUTION WIDTH 13.3 % (11.5-14.5); WHITE BLOOD COUNT 14.4 10^3/ul (4.8-10.8)
[2017-06-09] MEDS: FENTAnyl 2MCG/ML-ROPIV 0.2% 100 ML BAG EPI SCH ×3 (05:17→19:32)
[2017-06-09 05:54] LABS: INR 1.26; PROTIME 15.9 Sec (12.2-14.2); PT RATIO 1.2
[2017-06-09 05:55] LABS: PARTIAL THROMBOPLASTIN TIME 36.6 Sec (25.0-35.0)
[2017-06-09 06:10] LABS: CALCIUM 9.3 mg/dl (8.4-10.2); CREATININE 1.02 mg/dl (0.61-1.24); MAGNESIUM 2.1 mg/dl (1.7-2.5); PHOSPHORUS 2.8 mg/dl (2.5-4.9); POTASSIUM 3.9 mmol/L (3.5-5.1)
[2017-06-09 08:07] VITALS: BP 117/70; RESP 17
[2017-06-09] MEDS ORDERED: VANCOMYCIN 1.25 GM in SOD CHLORIDE 0.9% 250 ML IVPB SCH (11:00)
[2017-06-09] MEDS: VANCOMYCIN 750 MG in SOD CHLORIDE 0.9% 150 ML IVPB SCH ×2 (11:29→23:00)
[2017-06-09 14:00] VITALS: BP_SYST 111; BP_SYST 119; BP_DIAS 56; BP_DIAS 75; RESP 15
--- NOTE | 2017-06-09 18:09 | PN ---
Date/Time of Note Date/Time of Note DATE: 06/09/17 TIME: 17:26 Assessment/Plan VTE Prophylaxis VTE Prophylaxis Intervention: other Lines/Catheters IV Catheter Type (from Nrsg): Peripheral IV Urinary Cath still in place: Yes Assessment/Plan Assessment/Plan - Febrile condition- sp post op - Tylenol, cooling measures - per surgery - On VANCO Zosyn - cont to monitor - status post low anterior colon resection. - per surgery - pain control - IVF -- Sigmoid colon cancer Dr Plunkett/staff Subjective 24 Hr Interval Summary Constitutional: febrile Respiratory: no complaints Cardiovascular: no complaints Gastrointestinal: pain Musculoskeletal: no complaints Skin: no complaints Neurologic: no complaints Exam/Review of Systems Vital Signs Vitals Vital Signs Date Time Temp Pulse Resp B/P Pulse Ox O2 Delivery O2 Flow Rate FiO2 06/09/17 14:00 98.1 83 15 119/75 99 06/09/17 09:00 Nasal Cannula 2.0 Intake and Output 06/08/17 06/08/17 06/09/17 15:00 23:00 07:00 Intake Total 1040 ml 1200 ml Output Total 1350 ml 1400 ml Balance -310 ml -200 ml Exam Constitutional: alert, well developed Respiratory: diminished breath sounds Cardiovascular: nl pulses, regular rate and rhythm Gastrointestinal: non-tender, other (surgical abdomen), soft Musculoskeletal: nl extremities to inspection Extremities: normal pulses Results Result Diagram: 06/09/17 0455 06/09/17 0455 Results 24 hrs Laboratory Tests Test 06/09/17 04:55 White Blood Count 14.4 H Red Blood Count 4.22 L Hemoglobin 12.7 L Hematocrit 37.3 L Mean Corpuscular Volume 88.4 Mean Corpuscular Hemoglobin 30.1 Mean Corpuscular Hemoglobin Concent 34.0 Red Cell Distribution Width 13.3 Platelet Count 149 Mean Platelet Volume 9.1 Neutrophils % 87.6 H Lymphocytes % 6.2 L Monocytes % 5.4 Eosinophils % 0.1 Basophils % 0.2 Nucleated Red Blood Cells % 0.0 Neutrophils # (Manual) 12.6 H Lymphocytes # 0.9 Monocytes # 0.8 Eosinophils # 0.0 Basophils # 0.0 Nucleated Red Blood Cells # 0.0 Prothrombin Time 15.9 H Prothrombin Time Ratio 1.2 INR International Normalized Ratio 1.26 Activated Partial Thromboplast Time 36.6 H Sodium Level 137 Potassium Level 3.9 Chloride Level 100 Carbon Dioxide Level 31 Anion Gap 10 Blood Urea Nitrogen 10 Creatinine 1.02 Glucose Level 128 Calcium Level 9.3 Phosphorus Level 2.8 Magnesium Level 2.1 Medications Medications Current Medications Ondansetron HCl (Zofran Inj) 4 mg Q6H PRN IV NAUSEA AND/OR VOMITING Last administered on 06/06/17 12:45; Admin Dose 4 MG; Start 06/06/17 at 12:00 Morphine Sulfate 2 MG/HR CONTINUOUS RATE 2... Q4PCA IV ; Start 06/06/17 at 12:00 Potassium Chloride/Dextrose/ Sod Cl 1,000 ml @ 125 mls/hr Q8H IV Last administered on 06/09/17 07:06; Admin Dose 125 MLS/HR; Start 06/06/17 at 11:32 Acetaminophen (Ofirmev 1000mg/ 100ml Iv) 100 ml @ 400 mls/hr Q6H PRN IVPB PAIN Last administered on 06/08/17 20:11; Admin Dose 400 MLS/HR; Start 06/06/17 at 12:00 Naloxone HCl (Narcan) 0.2 mg Q2M PRN IV FOR RESP RATE 8 OR LESS; Start 06/06/17 at 12:30 Lorazepam (Ativan) 0.5 mg Q6H PRN IV ANXIETY Last administered on 06/07/17 19: 29; Admin Dose 0.5 MG; Start 06/06/17 at 17:00 Phenol (Chloraseptic Throat [place]) 2 spray Q2H PRN MT SORE THROAT; Start at 20:00 Morphine Sulfate 2 mg 2 mg Q1HWA PRN IV PAIN LEVEL 7-10 Last administered on 12:27; Admin Dose 2 MG; Start 06/07/17 at 01:30 Piperacillin Sod/ Tazobactam Sod 100 ml @ 200 mls/hr Q6 IVPB Last administered on 06/09/17 13:59; Admin Dose 200 MLS/HR; Start 06/08/17 at 18:00 Vancomycin HCl/ Sodium Chloride (Vancocin/NS) 150 ml @ 75 mls/hr Q12H IVPB Last administered on 06/09/17 11:29; Admin Dose 75 MLS/HR; Start 06/09/17 at 11: 00 Miscellaneous Information (*Rx Drug Level Order Reminder*) VANCO TROUGH @ 1, 000 ON... ONCE ONCE XX ; Start 06/10/17 at 10:00; Stop 06/10/17 at 10:01 KERRY RECINOS Jun 09, 2017 17:37
[2017-06-09 19:09] LABS: BASOPHILS % 0.2 % (0.0-2.0); EOSINOPHILS % 0.3 % (0.0-7.0); HEMATOCRIT 34.5 % (42.0-52.0); LYMPHOCYTES % 7.9 % (15.0-51.0); MEAN CORPUSCULAR HEMOGLOBIN 30.5 pg (29.0-33.0); MEAN CORPUSCULAR HGB CONC 34.8 g/dl (32.0-37.0); MEAN CORPUSCULAR VOLUME 87.6 fl (82.0-101.0); MEAN PLATELET VOLUME 9.5 fl (7.4-10.4); MONOCYTE # 0.7 10^3/ul (0.3-0.9); MONOCYTES % 5.4 % (0.0-11.0); NEUTROPHILS % 85.8 % (39.0-77.0); PLATELET COUNT 148 10^3/UL (140-415); RED BLOOD COUNT 3.94 10^6/ul (4.70-6.10); RED CELL DISTRIBUTION WIDTH 13.2 % (11.5-14.5); WHITE BLOOD COUNT 12.1 10^3/ul (4.8-10.8)
--- NOTE | 2017-06-09 19:21 | PN ---
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 Postop day #3. No bowel movement and no flatus yet. He is feeling better. The afebrile. NG drainage 300 cc gastric juice. Urine output adequate Plan is to continue current care tomorrow postop day #4 we are going to remove the epidural and after the patient can be activated mobilized and then we can remove the Witt catheter. Subjective 24 Hr Interval Summary Free Text/Dictation States that feels much better no new complaint overnight. Has not passed any gas or no bowel movement. Exam/Review of Systems Vital Signs Vitals Vital Signs Date Time Temp Pulse Resp B/P Pulse Ox O2 Delivery O2 Flow Rate FiO2 06/09/17 14:00 98.1 83 15 119/75 99 06/09/17 09:00 Nasal Cannula 2.0 Intake and Output 06/08/17 06/08/17 06/09/17 15:00 23:00 07:00 Intake Total 1040 ml 1200 ml Output Total 1350 ml 1400 ml Balance -310 ml -200 ml Exam Awake alert oriented 3. Postop day #3 status post laparotomy resection of the rectosigmoid colon for cancer. Pneumonia today patient temperature was 99.9 but since then has not had any more fever WBC today is 12,200 which is shifted to the left. Abdomen is soft bowel sounds 2+/4+ no sign of abdominal wall infection at this time. Still has an epidural for pain anesthesiologist advised to remove it tomorrow. Results Result Diagram: 06/09/17 1840 06/09/17 0455 Results 24 hrs Laboratory Tests Test 06/09/17 04:55 06/09/17 18:40 White Blood Count 14.4 H 12.1 H Red Blood Count 4.22 L 3.94 L Hemoglobin 12.7 L 12.0 L Hematocrit 37.3 L 34.5 L Mean Corpuscular Volume 88.4 87.6 Mean Corpuscular Hemoglobin 30.1 30.5 Mean Corpuscular Hemoglobin Concent 34.0 34.8 Red Cell Distribution Width 13.3 13.2 Platelet Count 149 148 Mean Platelet Volume 9.1 9.5 Neutrophils % 87.6 H 85.8 H Lymphocytes % 6.2 L 7.9 L Monocytes % 5.4 5.4 Eosinophils % 0.1 0.3 Basophils % 0.2 0.2 Nucleated Red Blood Cells % 0.0 0.0 Neutrophils # (Manual) 12.6 H 10.4 H Lymphocytes # 0.9 1.0 Monocytes # 0.8 0.7 Eosinophils # 0.0 0.0 Basophils # 0.0 0.0 Nucleated Red Blood Cells # 0.0 0.0 Prothrombin Time 15.9 H Prothrombin Time Ratio 1.2 INR International Normalized Ratio 1.26 Activated Partial Thromboplast Time 36.6 H Sodium Level 137 Potassium Level 3.9 Chloride Level 100 Carbon Dioxide Level 31 Anion Gap 10 Blood Urea Nitrogen 10 Creatinine 1.02 Glucose Level 128 Calcium Level 9.3 Phosphorus Level 2.8 Magnesium Level 2.1 Medications Medications Current Medications Ondansetron HCl (Zofran Inj) 4 mg Q6H PRN IV NAUSEA AND/OR VOMITING Last administered on 06/06/17 12:45; Admin Dose 4 MG; Start 06/06/17 at 12:00 Morphine Sulfate 2 MG/HR CONTINUOUS RATE 2... Q4PCA IV ; Start 06/06/17 at 12:00 Potassium Chloride/Dextrose/ Sod Cl 1,000 ml @ 125 mls/hr Q8H IV Last administered on 06/09/17 18:04; Admin Dose 125 MLS/HR; Start 06/06/17 at 11:32 Acetaminophen (Ofirmev 1000mg/ 100ml Iv) 100 ml @ 400 mls/hr Q6H PRN IVPB PAIN Last administered on 06/08/17 20:11; Admin Dose 400 MLS/HR; Start 06/06/17 at 12:00 Naloxone HCl (Narcan) 0.2 mg Q2M PRN IV FOR RESP RATE 8 OR LESS; Start 06/06/17 at 12:30 Lorazepam (Ativan) 0.5 mg Q6H PRN IV ANXIETY Last administered on 06/07/17 19: 29; Admin Dose 0.5 MG; Start 06/06/17 at 17:00 Phenol (Chloraseptic Throat [place]) 2 spray Q2H PRN MT SORE THROAT; Start at 20:00 Morphine Sulfate 2 mg 2 mg Q1HWA PRN IV PAIN LEVEL 7-10 Last administered on 12:27; Admin Dose 2 MG; Start 06/07/17 at 01:30 Piperacillin Sod/ Tazobactam Sod 100 ml @ 200 mls/hr Q6 IVPB Last administered on 06/09/17 18:34; Admin Dose 200 MLS/HR; Start 06/08/17 at 18:00 Vancomycin HCl/ Sodium Chloride (Vancocin/NS) 150 ml @ 75 mls/hr Q12H IVPB Last administered on 06/09/17 11:29; Admin Dose 75 MLS/HR; Start 06/09/17 at 11: 00 Miscellaneous Information (*Rx Drug Level Order Reminder*) VANCO TROUGH @ 1, 000 ON... ONCE ONCE XX ; Start 06/10/17 at 10:00; Stop 06/10/17 at 10:01 ISAMAR GODINEZ MD Jun 09, 2017 19:21
[2017-06-09] MEDS: LORAZEPAM 2 MG INJ IV PRN (19:35)
[2017-06-09 20:19] VITALS: BP 118/76; RESP 19
[2017-06-09] MEDS: PHENOL 1.4% SOLN 180 ML BTL MT PRN (23:46)
[2017-06-10] MEDS: VANCOMYCIN 750 MG in SOD CHLORIDE 0.9% 150 ML IVPB SCH ×2 (00:18→11:04)
[2017-06-10] MEDS: PHENOL 1.4% SOLN 180 ML BTL MT PRN (02:18)
[2017-06-10 02:25] VITALS: BP 121/74; RESP 20
[2017-06-10] MEDS: D5W-0.45 NACL + KCL 20 MEQ 1,000 ML IV SCH ×3 (03:32→16:47)
[2017-06-10] MEDS: FENTAnyl 2MCG/ML-ROPIV 0.2% 100 ML BAG EPI SCH (03:37)
[2017-06-10] MEDS: PIPER-TAZO 3.375 GM IV (PMX) 100 ML IVPB SCH ×3 (05:12→17:47)
[2017-06-10] MEDS: LORAZEPAM 2 MG INJ IV PRN ×2 (05:12→19:53)
[2017-06-10 05:45] LABS: CALCIUM 8.9 mg/dl (8.4-10.2); CREATININE 0.82 mg/dl (0.61-1.24); POTASSIUM 3.5 mmol/L (3.5-5.1)
[2017-06-10 07:41] VITALS: BP 137/74; RESP 15
--- NOTE | 2017-06-10 09:46 | PN ---
Date/Time of Note Date/Time of Note DATE: 06/10/17 TIME: 09:40 Assessment/Plan VTE Prophylaxis VTE Prophylaxis Intervention: SCD's Lines/Catheters IV Catheter Type (from Nrs): PICC Line Central line still needed: Yes Urinary Cath still in place: Yes Reason Cath still needed: urinary retention Assessment/Plan Assessment/Plan Postop day #4. Vital signs are stable. Bowel sound is normal. Her catheter will be removed by anesthesiologist today. Is out of bed today after epidural is removed. The Witt catheter is going to be removed after the epidural is removed. The patient complains of too much discomfort from the NG tube in his throat before I removed the NG tube but will keep the patient n.p.o. Subjective 24 Hr Interval Summary Free Text/Dictation No new events. Complaining of pain in her throat because of the NG tube, epidural catheter today the anesthesiologist is supposed to remove the epidural catheter and after that we are going to remove the Witt catheter out of the patient , and then out of bed to walk around. Exam/Review of Systems Vital Signs Vitals Vital Signs Date Time Temp Pulse Resp B/P Pulse Ox O2 Delivery O2 Flow Rate FiO2 06/10/17 07:41 98.4 83 15 137/74 98 06/09/17 09:00 Nasal Cannula 2.0 Intake and Output 06/09/17 06/09/17 06/10/17 15:00 23:00 07:00 Intake Total 500 ml 1100 ml 1350 ml Output Total 1050 ml 2080 ml Balance 500 ml 50 ml -730 ml Exam Postop day #4. Vital signs stable no fever , heart rate 83 No bowel movement or flatus yet. Abdomen is not distended soft bowel sound is present normal, NG tube drainage is gastric juice. Results Result Diagram: 06/09/17 1840 06/10/17 0432 Results 24 hrs Laboratory Tests Test 06/09/17 18:40 06/10/17 04:32 White Blood Count 12.1 H Red Blood Count 3.94 L Hemoglobin 12.0 L Hematocrit 34.5 L Mean Corpuscular Volume 87.6 Mean Corpuscular Hemoglobin 30.5 Mean Corpuscular Hemoglobin Concent 34.8 Red Cell Distribution Width 13.2 Platelet Count 148 Mean Platelet Volume 9.5 Neutrophils % 85.8 H Lymphocytes % 7.9 L Monocytes % 5.4 Eosinophils % 0.3 Basophils % 0.2 Nucleated Red Blood Cells % 0.0 Neutrophils # (Manual) 10.4 H Lymphocytes # 1.0 Monocytes # 0.7 Eosinophils # 0.0 Basophils # 0.0 Nucleated Red Blood Cells # 0.0 Sodium Level 135 Potassium Level 3.5 Chloride Level 100 Carbon Dioxide Level 29 Anion Gap 10 Blood Urea Nitrogen 10 Creatinine 0.82 Glucose Level 133 Calcium Level 8.9 Medications Medications Current Medications Ondansetron HCl (Zofran Inj) 4 mg Q6H PRN IV NAUSEA AND/OR VOMITING Last administered on 06/06/17 12:45; Admin Dose 4 MG; Start 06/06/17 at 12:00 Morphine Sulfate 2 MG/HR CONTINUOUS RATE 2... Q4PCA IV ; Start 06/06/17 at 12:00 Potassium Chloride/Dextrose/ Sod Cl 1,000 ml @ 125 mls/hr Q8H IV Last administered on 06/10/17 05:00; Admin Dose 125 MLS/HR; Start 06/06/17 at 11:32 Acetaminophen (Ofirmev 1000mg/ 100ml Iv) 100 ml @ 400 mls/hr Q6H PRN IVPB PAIN Last administered on 06/08/17 20:11; Admin Dose 400 MLS/HR; Start 06/06/17 at 12:00 Naloxone HCl (Narcan) 0.2 mg Q2M PRN IV FOR RESP RATE 8 OR LESS; Start 06/06/17 at 12:30 Lorazepam (Ativan) 0.5 mg Q6H PRN IV ANXIETY Last administered on 06/10/17 05: 12; Admin Dose 0.5 MG; Start 06/06/17 at 17:00 Phenol (Chloraseptic Throat [place]) 2 spray Q2H PRN MT SORE THROAT Last administered on 06/10/17 02:18; Admin Dose 2 SPRAY; Start 06/06/17 at 20:00 Morphine Sulfate 2 mg 2 mg Q1HWA PRN IV PAIN LEVEL 7-10 Last administered on 12:27; Admin Dose 2 MG; Start 06/07/17 at 01:30 Piperacillin Sod/ Tazobactam Sod 100 ml @ 200 mls/hr Q6 IVPB Last administered on 06/10/17 05:12; Admin Dose 200 MLS/HR; Start 06/08/17 at 18:00 Vancomycin HCl/ Sodium Chloride (Vancocin/NS) 150 ml @ 75 mls/hr Q12H IVPB Last administered on 06/10/17t 00:18; Admin Dose 75 MLS/HR; Start 06/09/17 at 11: 00 Miscellaneous Information (*Rx Drug Level Order Reminder*) VANCO TROUGH @ 1, 000 ON... ONCE ONCE XX ; Start 06/10/17 at 10:00; Stop 06/10/17 at 10:01 ISAMAR GODINEZ MD Jun 10, 2017 09:46
[2017-06-10] MEDS: ACETAMINOPHEN 1000MG/100ML IV 100 ML IVPB PRN (12:14)
[2017-06-10 13:50] VITALS: BP 118/70; RESP 16
[2017-06-10 20:14] VITALS: BP 111/62; RESP 20
[2017-06-10] MEDS: VANCOMYCIN 1.5 GM in SOD CHLORIDE 0.9% 250 ML IVPB SCH (21:54)
[2017-06-11] MEDS: PIPER-TAZO 3.375 GM IV (PMX) 100 ML IVPB SCH ×4 (00:56→18:24)
[2017-06-11 01:15] VITALS: BP 114/63; PULSE 70; RESP 18
[2017-06-11] MEDS: D5W-0.45 NACL + KCL 20 MEQ 1,000 ML IV SCH ×3 (04:30→18:23)
[2017-06-11 05:10] VITALS: BP 120/74; PULSE 68; RESP 18
[2017-06-11 06:24] LABS: BASOPHILS % 0.3 % (0.0-2.0); EOSINOPHILS # 0.2 10^3/ul (0.0-0.5); EOSINOPHILS % 2.1 % (0.0-7.0); HEMATOCRIT 34.4 % (42.0-52.0); HEMOGLOBIN 11.5 g/dl (14.0-18.0); LYMPHOCYTES % 11.3 % (15.0-51.0); MEAN CORPUSCULAR HEMOGLOBIN 29.3 pg (29.0-33.0); MEAN CORPUSCULAR HGB CONC 33.4 g/dl (32.0-37.0); MEAN CORPUSCULAR VOLUME 87.8 fl (82.0-101.0); MEAN PLATELET VOLUME 9.7 fl (7.4-10.4); MONOCYTE # 0.7 10^3/ul (0.3-0.9); MONOCYTES % 7.7 % (0.0-11.0); NEUTROPHILS % 78.3 % (39.0-77.0); PLATELET COUNT 193 10^3/UL (140-415); RED BLOOD COUNT 3.92 10^6/ul (4.70-6.10); RED CELL DISTRIBUTION WIDTH 13.5 % (11.5-14.5); WHITE BLOOD COUNT 8.9 10^3/ul (4.8-10.8)
[2017-06-11 06:39] LABS: POTASSIUM 3.4 mmol/L (3.5-5.1)
[2017-06-11 06:40] LABS: CALCIUM 9.6 mg/dl (8.4-10.2); CREATININE 0.78 mg/dl (0.61-1.24)
[2017-06-11 08:08] VITALS: BP 116/76; RESP 18
--- NOTE | 2017-06-11 08:12 | CONS ---
Date/Time of Note Date/Time of Note DATE: 06/11/17 TIME: 08:12 Assessment/Plan Assessment/Plan Chief Complaint/Hosp Course asked to consult. will be in shortly. thanks Problems: Consultation Date/Type/Reason Admit Date/Time Jun 06, 2017 at 05:15 Initial Consult Date Exam/Review of Systems Vital Signs Vitals Vital Signs Date Time Temp Pulse Resp B/P Pulse Ox O2 Delivery O2 Flow Rate FiO2 06/11/17 05:10 98.3 68 18 120/74 97 Room Air 06/09/17 09:00 2.0 Intake and Output 06/10/17 06/10/17 06/11/17 15:00 23:00 07:00 Intake Total 450 ml 1225 ml 1125 ml Output Total 1200 ml 700 ml Balance 450 ml 25 ml 425 ml Results Result Diagram: 06/11/17 0501 06/11/17 0501 Results 24 hrs Laboratory Tests Test 06/10/17 09:52 06/11/17 05:01 Vancomycin Level Trough 5.9 L White Blood Count 8.9 # Red Blood Count 3.92 L Hemoglobin 11.5 L Hematocrit 34.4 L Mean Corpuscular Volume 87.8 Mean Corpuscular Hemoglobin 29.3 Mean Corpuscular Hemoglobin Concent 33.4 Red Cell Distribution Width 13.5 Platelet Count 193 # Mean Platelet Volume 9.7 Neutrophils % 78.3 H Lymphocytes % 11.3 L Monocytes % 7.7 Eosinophils % 2.1 Basophils % 0.3 Nucleated Red Blood Cells % 0.0 Neutrophils # (Manual) 7.0 Lymphocytes # 1.0 Monocytes # 0.7 Eosinophils # 0.2 Basophils # 0.0 Nucleated Red Blood Cells # 0.0 Sodium Level 138 Potassium Level 3.4 L Chloride Level 101 Carbon Dioxide Level 29 Anion Gap 11 Blood Urea Nitrogen 9 Creatinine 0.78 Glucose Level 118 Calcium Level 9.6 Medications Medications Current Medications Ondansetron HCl (Zofran Inj) 4 mg Q6H PRN IV NAUSEA AND/OR VOMITING Last administered on 06/06/17t 12:45; Admin Dose 4 MG; Start 06/06/17 at 12:00 Morphine Sulfate 2 MG/HR CONTINUOUS RATE 2... Q4PCA IV ; Start 06/06/17 at 12:00 Potassium Chloride/Dextrose/ Sod Cl 1,000 ml @ 125 mls/hr Q8H IV Last administered on 06/11/17 04:30; Admin Dose 125 MLS/HR; Start 06/06/17 at 11:32 Acetaminophen (Ofirmev 1000mg/ 100ml Iv) 100 ml @ 400 mls/hr Q6H PRN IVPB PAIN Last administered on 06/10/17 12:14; Admin Dose 400 MLS/HR; Start 06/06/17 at 12:00 Naloxone HCl (Narcan) 0.2 mg Q2M PRN IV FOR RESP RATE 8 OR LESS; Start 06/06/17 at 12:30 Lorazepam (Ativan) 0.5 mg Q6H PRN IV ANXIETY Last administered on 06/10/17 19: 53; Admin Dose 0.5 MG; Start 06/06/17 at 17:00 Phenol (Chloraseptic Throat [place]) 2 spray Q2H PRN MT SORE THROAT Last administered on 06/10/17 02:18; Admin Dose 2 SPRAY; Start 06/06/17 at 20:00 Morphine Sulfate 2 mg 2 mg Q1HWA PRN IV PAIN LEVEL 7-10 Last administered on 12:27; Admin Dose 2 MG; Start 06/07/17 at 01:30 Piperacillin Sod/ Tazobactam Sod 100 ml @ 200 mls/hr Q6 IVPB Last administered on 06/11/17 06:30; Admin Dose 200 MLS/HR; Start 06/08/17 at 18:00 Vancomycin HCl/ Sodium Chloride (Vancocin/NS) 250 ml @ 83.333 mls/ hr Q12H IVPB Last administered on 06/10/17 21:54; Admin Dose 83.333 MLS/HR; Start at 21:00 CHARLENE SCHAEFER MD Jun 11, 2017 08:12
[2017-06-11] MEDS: VANCOMYCIN 1.5 GM in SOD CHLORIDE 0.9% 250 ML IVPB SCH ×2 (09:10→21:55)
--- NOTE | 2017-06-11 13:23 | PN ---
DATE: 06/11/2017 SUBJECTIVE DATA: Postoperative day number 5, status post laparotomy and low anterior resection of the rectosigmoid colon cancer. Subjective feels good, has passed gas and bowel movements. No nausea, no vomiting. OBJECTIVE: VITAL SIGNS: Heart rate 68, temperature once recorded 99.6, also has been recorded 98.3. Blood pressure normal. Oxygen saturation 96 percent on room air. ABDOMEN: Soft. Wounds clean. EXTREMITIES: Calf tenderness. LABORATORY AND DIAGNOSTIC DATA: Electrolytes, sodium normal, potassium 3.4, slightly low. WBC 8900, normal with 78 percent segmented, hemoglobin 11.5, hematocrit 34.4. ASSESSMENT: A 67-year-old, status post low anterior resection of the rectosigmoid. Postop erative day number 5 the patient has passed gas and bowel movement. Abdomen is soft. The patient is doing fine. We will start patient on clear liquid diet. We will advance it to full liquids tomorrow morning and if no problems, we will advance it to soft diet tomorrow night. Dictated By: Farrukh Ni MD /[email or web address] /Document#: [id number]
[2017-06-11 14:25] VITALS: BP 126/74; RESP 18
--- NOTE | 2017-06-11 16:08 | CONS ---
Date/Time of Note Date/Time of Note DATE: 06/11/17 TIME: 16:07 Assessment/Plan Assessment/Plan Chief Complaint/Hosp Course patient seen and examined. emr reviewed. continue current care. full note to follow. anticipate deescalation. Problems: Consultation Date/Type/Reason Admit Date/Time Jun 06, 2017 at 05:15 Exam/Review of Systems Vital Signs Vitals Vital Signs Date Time Temp Pulse Resp B/P Pulse Ox O2 Delivery O2 Flow Rate FiO2 06/11/17 14:25 99.5 68 18 126/74 98 06/11/17 05:10 Room Air 06/09/17 09:00 2.0 Intake and Output 06/10/17 06/10/17 06/11/17 15:00 23:00 07:00 Intake Total 450 ml 1225 ml 1125 ml Output Total 1200 ml 700 ml Balance 450 ml 25 ml 425 ml Results Result Diagram: 06/11/17 0501 06/11/17 0501 Results 24 hrs Laboratory Tests Test 06/11/17 05:01 White Blood Count 8.9 # Red Blood Count 3.92 L Hemoglobin 11.5 L Hematocrit 34.4 L Mean Corpuscular Volume 87.8 Mean Corpuscular Hemoglobin 29.3 Mean Corpuscular Hemoglobin Concent 33.4 Red Cell Distribution Width 13.5 Platelet Count 193 # Mean Platelet Volume 9.7 Neutrophils % 78.3 H Lymphocytes % 11.3 L Monocytes % 7.7 Eosinophils % 2.1 Basophils % 0.3 Nucleated Red Blood Cells % 0.0 Neutrophils # (Manual) 7.0 Lymphocytes # 1.0 Monocytes # 0.7 Eosinophils # 0.2 Basophils # 0.0 Nucleated Red Blood Cells # 0.0 Sodium Level 138 Potassium Level 3.4 L Chloride Level 101 Carbon Dioxide Level 29 Anion Gap 11 Blood Urea Nitrogen 9 Creatinine 0.78 Glucose Level 118 Calcium Level 9.6 Medications Medications Current Medications Ondansetron HCl (Zofran Inj) 4 mg Q6H PRN IV NAUSEA AND/OR VOMITING Last administered on 06/06/17t 12:45; Admin Dose 4 MG; Start 06/06/17 at 12:00 Morphine Sulfate 2 MG/HR CONTINUOUS RATE 2... Q4PCA IV ; Start 06/06/17 at 12:00 Potassium Chloride/Dextrose/ Sod Cl 1,000 ml @ 125 mls/hr Q8H IV Last administered on 06/11/17 04:30; Admin Dose 125 MLS/HR; Start 06/06/17 at 11:32 Acetaminophen (Ofirmev 1000mg/ 100ml Iv) 100 ml @ 400 mls/hr Q6H PRN IVPB PAIN Last administered on 06/10/17 12:14; Admin Dose 400 MLS/HR; Start 06/06/17 at 12:00 Naloxone HCl (Narcan) 0.2 mg Q2M PRN IV FOR RESP RATE 8 OR LESS; Start 06/06/17 at 12:30 Lorazepam (Ativan) 0.5 mg Q6H PRN IV ANXIETY Last administered on 06/10/17 19: 53; Admin Dose 0.5 MG; Start 06/06/17 at 17:00 Phenol (Chloraseptic Throat [place]) 2 spray Q2H PRN MT SORE THROAT Last administered on 06/10/17 02:18; Admin Dose 2 SPRAY; Start 06/06/17 at 20:00 Morphine Sulfate 2 mg 2 mg Q1HWA PRN IV PAIN LEVEL 7-10 Last administered on 12:27; Admin Dose 2 MG; Start 06/07/17 at 01:30 Piperacillin Sod/ Tazobactam Sod 100 ml @ 200 mls/hr Q6 IVPB Last administered on 06/11/17 12:44; Admin Dose 200 MLS/HR; Start 06/08/17 at 18:00 Vancomycin HCl/ Sodium Chloride (Vancocin/NS) 250 ml @ 83.333 mls/ hr Q12H IVPB Last administered on 06/11/17 09:10; Admin Dose 83.333 MLS/HR; Start 06/10 at 21:00 Miscellaneous Information VANCOMYCIN TROUGH AT 0800 ONCE ONCE XX ; Start 06/12/17 at 08:00; Stop 06/12/17 at 08:01 Potassium Chloride/Sodium Chloride (KCl/NS) 110 ml @ 55 mls/hr ONCE ONCE IVPB ; Start 06/11/17 at 16:00; Stop 06/11/17 at 17:59; Status CHARLENE ROSS MD Jun 11, 2017 16:08
[2017-06-11] MEDS ORDERED: POTASSIUM CHLORIDE 20 MEQ in SOD CHLORIDE 0.9% 100 ML IVPB ONE (17:30)
[2017-06-11] MEDS: ONDANSETRON 4 MG INJ IV PRN (18:25)
[2017-06-11 20:10] VITALS: BP 120/72; RESP 18
[2017-06-12] MEDS: PIPER-TAZO 3.375 GM IV (PMX) 100 ML IVPB SCH ×5 (01:21→23:05)
[2017-06-12 01:47] VITALS: BP 121/70; RESP 18
[2017-06-12] MEDS: D5W-0.45 NACL + KCL 20 MEQ 1,000 ML IV SCH ×3 (03:32→19:32)
[2017-06-12 05:00] VITALS: BP 119/67; RESP 18
[2017-06-12 05:44] LABS: BASOPHILS % 0.4 % (0.0-2.0); EOSINOPHILS # 0.2 10^3/ul (0.0-0.5); EOSINOPHILS % 2.9 % (0.0-7.0); HEMATOCRIT 33.4 % (42.0-52.0); HEMOGLOBIN 11.1 g/dl (14.0-18.0); LYMPHOCYTES # 1.3 10^3/ul (0.8-2.9); LYMPHOCYTES % 16.1 % (15.0-51.0); MEAN CORPUSCULAR HEMOGLOBIN 29.4 pg (29.0-33.0); MEAN CORPUSCULAR HGB CONC 33.2 g/dl (32.0-37.0); MEAN CORPUSCULAR VOLUME 88.6 fl (82.0-101.0); MEAN PLATELET VOLUME 9.4 fl (7.4-10.4); MONOCYTE # 0.7 10^3/ul (0.3-0.9); MONOCYTES % 8.9 % (0.0-11.0); NEUTROPHILS % 71.3 % (39.0-77.0); PLATELET COUNT 206 10^3/UL (140-415); RED BLOOD COUNT 3.77 10^6/ul (4.70-6.10); RED CELL DISTRIBUTION WIDTH 13.3 % (11.5-14.5)
[2017-06-12 06:08] VITALS: BP 131/82; PULSE 76; RESP 18
[2017-06-12 06:17] LABS: CREATININE 0.9 mg/dl (0.61-1.24)
[2017-06-12] MEDS: VANCOMYCIN 1.5 GM in SOD CHLORIDE 0.9% 250 ML IVPB SCH (09:23)
--- NOTE | 2017-06-12 11:30 | CONS ---
Date/Time of Note Date/Time of Note DATE: 06/11/17 TIME: 16:15 Assessment/Plan Assessment/Plan Chief Complaint/Hosp Course 1. Post op fever and leukocytosis 2. s/p low ant resection for colon ca R: consider stopping Vanco Complete 7 days empiric Zosyn. Problems: Consultation Date/Type/Reason Admit Date/Time Jun 06, 2017 at 05:15 Date of Consultation: Jun 11, 2017 Hx of Present Illness Mr. Orr is a 57 yo male with recent dx of Colon CA. He is s/p resection. Post op he has had fevers and leukocytosis. He was placed empirically on Vanco/ Zosyn. He has improved clinically. Constitutional: febrile, No chills, No diaphoresis, No disoriented, No improved, No no complaints, No other, No poor po, No requiring IVF, No requiring O2 Eyes: No discharge, No no complaints, No other, No pain, No redness, No visual change ENT: No bleeding, No congestion, No discharge, No dysphagia, No no complaints, No other, No pain, No sore throat Respiratory: no complaints, No cough, No other, No pain, No pleuritic pain, No shortness of breath, No sputum, No wheezing Cardiovascular: no complaints Gastrointestinal: pain, No blood, No constipation, No decreased appetite, No diarrhea, No flatus, No nausea, No no complaints, No other, No passing stool, No vomiting Genitourinary: no complaints, No bleeding, No discharge, No dysuria, No flank pain, No hematuria, No other Musculoskeletal: no complaints, No back pain, No bone/joint pain, No neck pain, No other, No restricted range of motion, No swelling Skin: no complaints, No bruising, No erythema, No laceration, No other, No pruritis, No rash, No skin lesions Neurologic: no complaints Social History Smoking Status: Never smoker Exam/Review of Systems Vital Signs Vitals Vital Signs Date Time Temp Pulse Resp B/P Pulse Ox O2 Delivery O2 Flow Rate FiO2 06/12/17 06:08 98.8 76 18 131/82 97 Room Air 06/09/17 09:00 2.0 Intake and Output 06/11/17 06/11/17 06/12/17 15:00 23:00 07:00 Intake Total 1050 ml 2150 ml Output Total 1150 ml Balance 1050 ml 1000 ml Exam Constitutional: alert, oriented, well developed Psych: nl mood/affect, no complaints Head: atraumatic, normocephalic Eyes: EOMI, PERRL, nl conjunctiva, nl lids, nl sclera ENMT: nl external ears & nose, nl lips & teeth, nl nasal mucosa & septum Neck: non-tender, supple Gastrointestinal: nl liver, spleen, non-tender, soft Musculoskeletal: nl extremities to inspection, nl gait and stance Results Result Diagram: 06/12/175 06/12/175 Results 24 hrs Laboratory Tests Test 06/12/17 04:45 06/12/17 08:25 White Blood Count 8.0 Red Blood Count 3.77 L Hemoglobin 11.1 L Hematocrit 33.4 L Mean Corpuscular Volume 88.6 Mean Corpuscular Hemoglobin 29.4 Mean Corpuscular Hemoglobin Concent 33.2 Red Cell Distribution Width 13.3 Platelet Count 206 Mean Platelet Volume 9.4 Neutrophils % 71.3 Lymphocytes % 16.1 Monocytes % 8.9 Eosinophils % 2.9 Basophils % 0.4 Nucleated Red Blood Cells % 0.0 Neutrophils # (Manual) 5.7 Lymphocytes # 1.3 Monocytes # 0.7 Eosinophils # 0.2 Basophils # 0.0 Nucleated Red Blood Cells # 0.0 Blood Urea Nitrogen 9 Creatinine 0.90 Vancomycin Level Trough 13.6 Medications Medications Current Medications Ondansetron HCl (Zofran Inj) 4 mg Q6H PRN IV NAUSEA AND/OR VOMITING Last administered on 06/11/17 18:25; Admin Dose 4 MG; Start 06/06/17 at 12:00 Morphine Sulfate 2 MG/HR CONTINUOUS RATE 2... Q4PCA IV ; Start 06/06/17 at 12:00 Potassium Chloride/Dextrose/ Sod Cl 1,000 ml @ 125 mls/hr Q8H IV Last administered on 06/11/17 18:23; Admin Dose 125 MLS/HR; Start 06/06/17 at 11:32 Acetaminophen (Ofirmev 1000mg/ 100ml Iv) 100 ml @ 400 mls/hr Q6H PRN IVPB PAIN Last administered on 06/10/17 12:14; Admin Dose 400 MLS/HR; Start 06/06/17 at 12:00 Naloxone HCl (Narcan) 0.2 mg Q2M PRN IV FOR RESP RATE 8 OR LESS; Start 06/06/17 at 12:30 Lorazepam (Ativan) 0.5 mg Q6H PRN IV ANXIETY Last administered on 06/10/17 19: 53; Admin Dose 0.5 MG; Start 06/06/17 at 17:00 Phenol (Chloraseptic Throat [place]) 2 spray Q2H PRN MT SORE THROAT Last administered on 06/10/17 02:18; Admin Dose 2 SPRAY; Start 06/06/17 at 20:00 Morphine Sulfate 2 mg 2 mg Q1HWA PRN IV PAIN LEVEL 7-10 Last administered on 12:27; Admin Dose 2 MG; Start 06/07/17 at 01:30 Piperacillin Sod/ Tazobactam Sod 100 ml @ 200 mls/hr Q6 IVPB Last administered on 06/12/17 05:50; Admin Dose 200 MLS/HR; Start 06/08/17 at 18:00 Vancomycin HCl/ Sodium Chloride (Vancocin/NS) 250 ml @ 83.333 mls/ hr Q12H IVPB Last administered on 06/12/17 09:23; Admin Dose 83.333 MLS/HR; Start 06/10 at 21:00 CHARLENE SCHAEFER MD Jun 12, 2017 11:30
--- NOTE | 2017-06-12 11:46 | CONS ---
Date/Time of Note Date/Time of Note DATE: 06/12/17 TIME: 11:41 Assessment/Plan Assessment/Plan Chief Complaint/Hosp Course - Post-op SIRS with fever and leukocytosis - resolving - Rectal cancer, s/p laparotomy and low anterior colon resection POD# 6 - Normocytic anemia Recommendations: - Discontinue Vanco - Complete 7 days of empiric Zosyn (06/08/2017-) Management d/w patient, his , and Dr. Hercules Problems: Consultation Date/Type/Reason Admit Date/Time Jun 06, 2017 at 05:15 Initial Consult Date 06/11/17 Type of Consultation: Infectious Disease 24 HR Interval Summary Free Text/Dictation Afebrile, tolerating full liquid diet and ambulated in hallway earlier. Reports having BLE discomfort after ambulation. Denies abd pain, n/v/d/, dysuria. Exam/Review of Systems Vital Signs Vitals Vital Signs Date Time Temp Pulse Resp B/P Pulse Ox O2 Delivery O2 Flow Rate FiO2 06/12/17 06:08 98.8 76 18 131/82 97 Room Air 06/09/17 09:00 2.0 Intake and Output 06/11/17 06/11/17 06/12/17 15:00 23:00 07:00 Intake Total 1050 ml 2150 ml Output Total 1150 ml Balance 1050 ml 1000 ml Exam Constitutional: alert, oriented, well developed Psych: nl mood/affect Head: atraumatic, normocephalic Eyes: nl conjunctiva, nl lids ENMT: nl external ears & nose Neck: supple Respiratory: clear to auscultation, normal air movement Cardiovascular: nl pulses, regular rate and rhythm Gastrointestinal: non-tender, other (abdominal dressing c/d/i), soft Musculoskeletal: nl extremities to inspection Extremities: normal pulses Neurological: nl mental status, nl speech, nl strength Skin: nl turgor, No rash or lesions Results Result Diagram: 06/12/17 0445 06/12/17444 Results 24 hrs Laboratory Tests Test 06/12/17 04:45 06/12/17 08:25 White Blood Count 8.0 Red Blood Count 3.77 L Hemoglobin 11.1 L Hematocrit 33.4 L Mean Corpuscular Volume 88.6 Mean Corpuscular Hemoglobin 29.4 Mean Corpuscular Hemoglobin Concent 33.2 Red Cell Distribution Width 13.3 Platelet Count 206 Mean Platelet Volume 9.4 Neutrophils % 71.3 Lymphocytes % 16.1 Monocytes % 8.9 Eosinophils % 2.9 Basophils % 0.4 Nucleated Red Blood Cells % 0.0 Neutrophils # (Manual) 5.7 Lymphocytes # 1.3 Monocytes # 0.7 Eosinophils # 0.2 Basophils # 0.0 Nucleated Red Blood Cells # 0.0 Blood Urea Nitrogen 9 Creatinine 0.90 Vancomycin Level Trough 13.6 Medications Medications Current Medications Ondansetron HCl (Zofran Inj) 4 mg Q6H PRN IV NAUSEA AND/OR VOMITING Last administered on 06/11/17 18:25; Admin Dose 4 MG; Start 06/06/17 at 12:00 Morphine Sulfate 2 MG/HR CONTINUOUS RATE 2... Q4PCA IV ; Start 06/06/17 at 12:00 Potassium Chloride/Dextrose/ Sod Cl 1,000 ml @ 125 mls/hr Q8H IV Last administered on 06/11/17 18:23; Admin Dose 125 MLS/HR; Start 06/06/17 at 11:32 Acetaminophen (Ofirmev 1000mg/ 100ml Iv) 100 ml @ 400 mls/hr Q6H PRN IVPB PAIN Last administered on 06/10/17 12:14; Admin Dose 400 MLS/HR; Start 06/06/17 at 12:00 Naloxone HCl (Narcan) 0.2 mg Q2M PRN IV FOR RESP RATE 8 OR LESS; Start 06/06/17 at 12:30 Lorazepam (Ativan) 0.5 mg Q6H PRN IV ANXIETY Last administered on 06/10/17 19: 53; Admin Dose 0.5 MG; Start 06/06/17 at 17:00 Phenol (Chloraseptic Throat [place]) 2 spray Q2H PRN MT SORE THROAT Last administered on 06/10/17 02:18; Admin Dose 2 SPRAY; Start 06/06/17 at 20:00 Morphine Sulfate 2 mg 2 mg Q1HWA PRN IV PAIN LEVEL 7-10 Last administered on 12:27; Admin Dose 2 MG; Start 06/07/17 at 01:30 Piperacillin Sod/ Tazobactam Sod 100 ml @ 200 mls/hr Q6 IVPB Last administered on 06/12/17 05:50; Admin Dose 200 MLS/HR; Start 06/08/17 at 18:00 Vancomycin HCl/ Sodium Chloride (Vancocin/NS) 250 ml @ 83.333 mls/ hr Q12H IVPB Last administered on 06/12/17 09:23; Admin Dose 83.333 MLS/HR; Start 06/10 at 21:00 TIM SULLIVAN NP Jun 12, 2017 11:46
[2017-06-12 14:00] VITALS: BP 112/61; RESP 19
--- NOTE | 2017-06-12 14:00 | PN ---
Date/Time of Note Date/Time of Note DATE: 06/12/17 TIME: 13:51 Assessment/Plan Lines/Catheters IV Catheter Type (from Nrsg): Peripheral IV Urinary Cath still in place: No Assessment/Plan Assessment/Plan - sp post op - Tylenol, cooling measures - per surgery - On VANCO, Zosyn - cont to monitor - status post low anterior colon resection. - per surgery - pain control - IVF -- Sigmoid colon cancer Blaine Plunkett/staff Subjective 24 Hr Interval Summary Free Text/Dictation feel better, ambulated in hallway, afebrile, family at bed side- all Qs answered , dw staff Respiratory: no complaints Cardiovascular: no complaints Gastrointestinal: pain Genitourinary: no complaints Musculoskeletal: no complaints Exam/Review of Systems Vital Signs Vitals Vital Signs Date Time Temp Pulse Resp B/P Pulse Ox O2 Delivery O2 Flow Rate FiO2 06/12/17 06:08 98.8 76 18 131/82 97 Room Air 06/09/17 09:00 2.0 Intake and Output 06/11/17 06/11/17 06/12/17 14:59 22:59 06:59 Intake Total 1050 ml 2150 ml Output Total 1150 ml Balance 1050 ml 1000 ml Exam Constitutional: alert, well developed Respiratory: diminished breath sounds, normal air movement Gastrointestinal: other, soft Musculoskeletal: nl extremities to inspection Extremities: normal pulses Neurological: nl mental status, nl speech Results Result Diagram: 06/12/175 06/12/175 Results 24 hrs Laboratory Tests Test 06/12/17 04:45 06/12/17 08:25 White Blood Count 8.0 Red Blood Count 3.77 L Hemoglobin 11.1 L Hematocrit 33.4 L Mean Corpuscular Volume 88.6 Mean Corpuscular Hemoglobin 29.4 Mean Corpuscular Hemoglobin Concent 33.2 Red Cell Distribution Width 13.3 Platelet Count 206 Mean Platelet Volume 9.4 Neutrophils % 71.3 Lymphocytes % 16.1 Monocytes % 8.9 Eosinophils % 2.9 Basophils % 0.4 Nucleated Red Blood Cells % 0.0 Neutrophils # (Manual) 5.7 Lymphocytes # 1.3 Monocytes # 0.7 Eosinophils # 0.2 Basophils # 0.0 Nucleated Red Blood Cells # 0.0 Blood Urea Nitrogen 9 Creatinine 0.90 Vancomycin Level Trough 13.6 Medications Medications Current Medications Ondansetron HCl (Zofran Inj) 4 mg Q6H PRN IV NAUSEA AND/OR VOMITING Last administered on 06/11/17 18:25; Admin Dose 4 MG; Start 06/06/17 at 12:00 Morphine Sulfate 2 MG/HR CONTINUOUS RATE 2... Q4PCA IV ; Start 06/06/17 at 12:00 Potassium Chloride/Dextrose/ Sod Cl 1,000 ml @ 125 mls/hr Q8H IV Last administered on 06/11/17 18:23; Admin Dose 125 MLS/HR; Start 06/06/17 at 11:32 Acetaminophen (Ofirmev 1000mg/ 100ml Iv) 100 ml @ 400 mls/hr Q6H PRN IVPB PAIN Last administered on 06/10/17 12:14; Admin Dose 400 MLS/HR; Start 06/06/17 at 12:00 Naloxone HCl (Narcan) 0.2 mg Q2M PRN IV FOR RESP RATE 8 OR LESS; Start 06/06/17 at 12:30 Lorazepam (Ativan) 0.5 mg Q6H PRN IV ANXIETY Last administered on 06/10/17 19: 53; Admin Dose 0.5 MG; Start 06/06/17 at 17:00 Phenol (Chloraseptic Throat [place]) 2 spray Q2H PRN MT SORE THROAT Last administered on 06/10/17 02:18; Admin Dose 2 SPRAY; Start 06/06/17 at 20:00 Morphine Sulfate 2 mg 2 mg Q1HWA PRN IV PAIN LEVEL 7-10 Last administered on 12:27; Admin Dose 2 MG; Start 06/07/17 at 01:30 Piperacillin Sod/ Tazobactam Sod 100 ml @ 200 mls/hr Q6 IVPB Last administered on 06/12/17 13:26; Admin Dose 200 MLS/HR; Start 06/08/17 at 18:00 Vancomycin HCl/ Sodium Chloride (Vancocin/NS) 250 ml @ 83.333 mls/ hr Q12H IVPB Last administered on 06/12/17 09:23; Admin Dose 83.333 MLS/HR; Start 06/10 at 21:00 KERRY RECINOS Jun 12, 2017 14:00
--- NOTE | 2017-06-12 14:02 | PN ---
Date/Time of Note Date/Time of Note DATE: 06/12/17 TIME: 14:00 Assessment/Plan Lines/Catheters IV Catheter Type (from Nrsg): Peripheral IV Urinary Cath still in place: No Assessment/Plan Assessment/Plan - sp post op - Tylenol, cooling measures - per surgery - On VANCO Zosyn - cont to monitor - status post low anterior colon resection. - per surgery - pain control - IVF -- Sigmoid colon cancer Blaine Plunkett/staff Subjective 24 Hr Interval Summary Free Text/Dictation Late entry 06/11/2017 feels better, ambulated in hallway, afebrile, family at bed side- all Qs answered, dw staff Exam/Review of Systems Vital Signs Vitals Vital Signs Date Time Temp Pulse Resp B/P Pulse Ox O2 Delivery O2 Flow Rate FiO2 06/12/17 06:08 98.8 76 18 131/82 97 Room Air 06/09/17 09:00 2.0 Intake and Output 06/11/17 06/11/17 06/12/17 14:59 22:59 06:59 Intake Total 1050 ml 2150 ml Output Total 1150 ml Balance 1050 ml 1000 ml Results Result Diagram: 06/12/17 0445 06/12/17 0445 Results 24 hrs Laboratory Tests Test 06/12/17 04:45 06/12/17 08:25 White Blood Count 8.0 Red Blood Count 3.77 L Hemoglobin 11.1 L Hematocrit 33.4 L Mean Corpuscular Volume 88.6 Mean Corpuscular Hemoglobin 29.4 Mean Corpuscular Hemoglobin Concent 33.2 Red Cell Distribution Width 13.3 Platelet Count 206 Mean Platelet Volume 9.4 Neutrophils % 71.3 Lymphocytes % 16.1 Monocytes % 8.9 Eosinophils % 2.9 Basophils % 0.4 Nucleated Red Blood Cells % 0.0 Neutrophils # (Manual) 5.7 Lymphocytes # 1.3 Monocytes # 0.7 Eosinophils # 0.2 Basophils # 0.0 Nucleated Red Blood Cells # 0.0 Blood Urea Nitrogen 9 Creatinine 0.90 Vancomycin Level Trough 13.6 Medications Medications Current Medications Ondansetron HCl (Zofran Inj) 4 mg Q6H PRN IV NAUSEA AND/OR VOMITING Last administered on 06/11/17t 18:25; Admin Dose 4 MG; Start 06/06/17 at 12:00 Morphine Sulfate 2 MG/HR CONTINUOUS RATE 2... Q4PCA IV ; Start 06/06/17 at 12:00 Potassium Chloride/Dextrose/ Sod Cl 1,000 ml @ 125 mls/hr Q8H IV Last administered on 06/11/17 18:23; Admin Dose 125 MLS/HR; Start 06/06/17 at 11:32 Acetaminophen (Ofirmev 1000mg/ 100ml Iv) 100 ml @ 400 mls/hr Q6H PRN IVPB PAIN Last administered on 06/10/17 12:14; Admin Dose 400 MLS/HR; Start 06/06/17 at 12:00 Naloxone HCl (Narcan) 0.2 mg Q2M PRN IV FOR RESP RATE 8 OR LESS; Start 06/06/17 at 12:30 Lorazepam (Ativan) 0.5 mg Q6H PRN IV ANXIETY Last administered on 06/10/17 19: 53; Admin Dose 0.5 MG; Start 06/06/17 at 17:00 Phenol (Chloraseptic Throat [place]) 2 spray Q2H PRN MT SORE THROAT Last administered on 06/10/17 02:18; Admin Dose 2 SPRAY; Start 06/06/17 at 20:00 Morphine Sulfate 2 mg 2 mg Q1HWA PRN IV PAIN LEVEL 7-10 Last administered on 12:27; Admin Dose 2 MG; Start 06/07/17 at 01:30 Piperacillin Sod/ Tazobactam Sod 100 ml @ 200 mls/hr Q6 IVPB Last administered on 06/12/17 13:26; Admin Dose 200 MLS/HR; Start 06/08/17 at 18:00 Vancomycin HCl/ Sodium Chloride (Vancocin/NS) 250 ml @ 83.333 mls/ hr Q12H IVPB Last administered on 06/12/17 09:23; Admin Dose 83.333 MLS/HR; Start 06/10 at 21:00 KERRY RECINOS Jun 12, 2017 14:02
--- NOTE | 2017-06-12 14:04 | PN ---
Date/Time of Note Date/Time of Note DATE: 06/12/17 TIME: 14:02 Assessment/Plan VTE Prophylaxis VTE Prophylaxis Intervention: SCD's Lines/Catheters IV Catheter Type (from Nrsg): Peripheral IV Urinary Cath still in place: No Assessment/Plan Assessment/Plan - Febrile condition- sp post op - Tylenol, cooling measures - per surgery - On VANCO, Zosyn - cont to monitor - status post low anterior colon resection. - per surgery - pain control - IVF -- Sigmoid colon cancer Blaine Plunkett/staff Subjective 24 Hr Interval Summary Free Text/Dictation feels better, tolerates full liquid diet, afebrile, dw staff Exam/Review of Systems Vital Signs Vitals Vital Signs Date Time Temp Pulse Resp B/P Pulse Ox O2 Delivery O2 Flow Rate FiO2 06/12/17 06:08 98.8 76 18 131/82 97 Room Air 06/09/17 09:00 2.0 Intake and Output 06/11/17 06/11/17 06/12/17 14:59 22:59 06:59 Intake Total 1050 ml 2150 ml Output Total 1150 ml Balance 1050 ml 1000 ml Results Result Diagram: 06/12/17 0445 06/12/17 0445 Results 24 hrs Laboratory Tests Test 06/12/17 04:45 06/12/17 08:25 White Blood Count 8.0 Red Blood Count 3.77 L Hemoglobin 11.1 L Hematocrit 33.4 L Mean Corpuscular Volume 88.6 Mean Corpuscular Hemoglobin 29.4 Mean Corpuscular Hemoglobin Concent 33.2 Red Cell Distribution Width 13.3 Platelet Count 206 Mean Platelet Volume 9.4 Neutrophils % 71.3 Lymphocytes % 16.1 Monocytes % 8.9 Eosinophils % 2.9 Basophils % 0.4 Nucleated Red Blood Cells % 0.0 Neutrophils # (Manual) 5.7 Lymphocytes # 1.3 Monocytes # 0.7 Eosinophils # 0.2 Basophils # 0.0 Nucleated Red Blood Cells # 0.0 Blood Urea Nitrogen 9 Creatinine 0.90 Vancomycin Level Trough 13.6 Medications Medications Current Medications Ondansetron HCl (Zofran Inj) 4 mg Q6H PRN IV NAUSEA AND/OR VOMITING Last administered on 06/11/17t 18:25; Admin Dose 4 MG; Start 06/06/17 at 12:00 Morphine Sulfate 2 MG/HR CONTINUOUS RATE 2... Q4PCA IV ; Start 06/06/17 at 12:00 Potassium Chloride/Dextrose/ Sod Cl 1,000 ml @ 125 mls/hr Q8H IV Last administered on 06/11/17 18:23; Admin Dose 125 MLS/HR; Start 06/06/17 at 11:32 Acetaminophen (Ofirmev 1000mg/ 100ml Iv) 100 ml @ 400 mls/hr Q6H PRN IVPB PAIN Last administered on 06/10/17 12:14; Admin Dose 400 MLS/HR; Start 06/06/17 at 12:00 Naloxone HCl (Narcan) 0.2 mg Q2M PRN IV FOR RESP RATE 8 OR LESS; Start 06/06/17 at 12:30 Lorazepam (Ativan) 0.5 mg Q6H PRN IV ANXIETY Last administered on 06/10/17 19: 53; Admin Dose 0.5 MG; Start 06/06/17 at 17:00 Phenol (Chloraseptic Throat [place]) 2 spray Q2H PRN MT SORE THROAT Last administered on 06/10/17 02:18; Admin Dose 2 SPRAY; Start 06/06/17 at 20:00 Morphine Sulfate 2 mg 2 mg Q1HWA PRN IV PAIN LEVEL 7-10 Last administered on 12:27; Admin Dose 2 MG; Start 06/07/17 at 01:30 Piperacillin Sod/ Tazobactam Sod 100 ml @ 200 mls/hr Q6 IVPB Last administered on 06/12/17 13:26; Admin Dose 200 MLS/HR; Start 06/08/17 at 18:00 Vancomycin HCl/ Sodium Chloride (Vancocin/NS) 250 ml @ 83.333 mls/ hr Q12H IVPB Last administered on 06/12/17 09:23; Admin Dose 83.333 MLS/HR; Start 06/10 at 21:00 KERRY RECINOS Jun 12, 2017 14:04
[2017-06-12] MEDS ORDERED: IOHEXOL 14.3 MG(I)/ML (ADULT) BTL PO SCH (16:00)
[2017-06-12 19:50] VITALS: BP 116/70; RESP 19
--- NOTE | 2017-06-12 21:57 | PN ---
DATE: 06/12/2017 Status post laparotomy, low anterior resection of the rectosigmoid colon. SUBJECTIVE DATA: No complaint. Has been passing gas. Normal bowel movement. Urination is okay. Has been walking around. No fever. No nausea. No vomiting. OBJECTIVE DATA: VITAL SIGNS: Stable. Temperature slightly increased to 98.8 today. Otherwise, heart rate is 76. ABDOMEN: Soft. Dressing was removed. The wound is clean. No signs of infection. No cellulitis. ASSESSMENT AND PLAN: This is postop day number 6, status post very low anterior resection for cancer of the rectosigmoid and internal anastomosis. Patient has been doing fine. Complete blood count is normal today. No fever. His white count is normal, as I mentioned. Abdomen is soft. Patient has been tolerating clear liquids. I am going to order a CT scan of the abdomen and pelvis with Gastrografin contrast to make sure there is no sign of leakage. If everything is okay, we will start patient on regular diet tomorrow and get him ready for discharge probably tomorrow. Dictated By: Farrukh Ni MD /paola/elenita /Document#: [id number]
[2017-06-12] MEDS: ONDANSETRON 4 MG INJ IV PRN (22:13)
[2017-06-12] MEDS: ACETAMINOPHEN 1000MG/100ML IV 100 ML IVPB PRN (22:13)
[2017-06-12 23:56] VITALS: BP 112/68; RESP 18
[2017-06-13] MEDS: D5W-0.45 NACL + KCL 20 MEQ 1,000 ML IV SCH ×4 (03:32→19:32)
[2017-06-13 03:41] VITALS: BP 105/65; RESP 18
[2017-06-13] MEDS: PIPER-TAZO 3.375 GM IV (PMX) 100 ML IVPB SCH ×3 (05:06→17:37)
[2017-06-13 05:36] LABS: CALCIUM 9.7 mg/dl (8.4-10.2); POTASSIUM 3.8 mmol/L (3.5-5.1)
[2017-06-13 05:45] LABS: BASOPHILS % 0.3 % (0.0-2.0); EOSINOPHILS # 0.2 10^3/ul (0.0-0.5); EOSINOPHILS % 1.9 % (0.0-7.0); HEMATOCRIT 34.3 % (42.0-52.0); HEMOGLOBIN 11.2 g/dl (14.0-18.0); LYMPHOCYTES # 1.5 10^3/ul (0.8-2.9); LYMPHOCYTES % 16.1 % (15.0-51.0); MEAN CORPUSCULAR HGB CONC 32.7 g/dl (32.0-37.0); MEAN CORPUSCULAR VOLUME 88.9 fl (82.0-101.0); MEAN PLATELET VOLUME 9.3 fl (7.4-10.4); MONOCYTE # 0.8 10^3/ul (0.3-0.9); MONOCYTES % 8.6 % (0.0-11.0); NEUTROPHILS % 72.6 % (39.0-77.0); PLATELET COUNT 254 10^3/UL (140-415); RED BLOOD COUNT 3.86 10^6/ul (4.70-6.10); RED CELL DISTRIBUTION WIDTH 13.3 % (11.5-14.5); WHITE BLOOD COUNT 9.1 10^3/ul (4.8-10.8)
[2017-06-13 08:19] VITALS: BP 110/62; RESP 18
--- NOTE | 2017-06-13 09:12 | RADRPT ---
PROCEDURE: CT Abdomen and Pelvis without contrast. CLINICAL INDICATION: Prior surgery. Colorectal anastomoses. Rule out possible leak. TECHNIQUE: CT scan of the abdomen and pelvis without contrast was performed on a multidetector hig h-resolution CT scanner. The patient was scanned without intravenous contrast. Coronal and sagittal reformatted images were obtained from the axial source images. Images were reviewed on a high-resol [employer] PACS workstation. The total exam CTDI equals 9.11 mGy and the total exam DLP equals 602.63 mGy -cm. One or more of the following dose reduction techniques were used: - Automated exposure control. - Adjustment of the mA and/or kV according to patient size. - Use of iterative reconstruction technique. COMPARISON: None. FINDINGS: CT abdomen: The lung bases are remarkable for dense bibasilar subsegmental atelectasis. The heart size is mary l, without pericardial thickening or effusion. The liver is normal in size and density without foca l mass or intrahepatic biliary dilatation. The spleen is normal in size and homogeneous in density. The stomach is partially collapsed, but is grossly unremarkable. The pancreas as visualized is no rmal. The gallbladder and biliary tree are unremarkable and there is no evidence for biliary dilata tion. The adrenal glands are symmetric and normal. The kidneys are symmetrically unremarkable as w ell. No renal calculus or obstructive uropathy or mass lesion is seen. The aorta is of normal caliber. There is no retroperitoneal lymphadenopathy. The reza hepatis reg ion is clear. The bowel and mesentery, as visualized, are equally unremarkable. CT pelvis: The small bowel loops situated within the pelvis are unremarkable. The appendix is normal. Large flu id collection is seen in the posterior pelvis and presacral space. This measures approximately 10.6 cm in maximal cranial caudal dimension, and 5.4 x 3.8 cm in maximal transverse dimension. Air bubble s are seen within this fluid collection. No contrast is seen to confirm a definite leak at this time . Air is seen within the bladder, likely due to recent previous instrumentation. The prostate gland is enlarged and is impressing upon the base of the bladder. A surgical microstaple line of the lower r ectum is identified. There is contrast seen throughout the colon and rectum at this time. No pelvic mass or adenopathy is seen. Stranding and edema of the pelvic mesentery with gas bubbles along the a nterior pelvis is seen secondary to recent prior surgery. The surrounding osseous structures are remarkable for degenerative spondylosis of the spine. No ost eolytic or osteoblastic lesion is detected. Severe discogenic disease and disc space narrowing at th e L4-5 level is identified. IMPRESSION: 1. Large fluid collection with gas bubbles are seen within the lower posterior pelvis and presacral space. Fluid leakage is a possibility. The postop of abscess (unrelated to leak) is a definite cons ideration as well. Of note, there is contrast throughout the entire colon which has not leaked out i nto this presacral fluid collection. 2. Postsurgical changes of the rectum with a surgical microstaple line. 3. Extensive postsurgical changes throughout the pelvis, as expected. RPTAT: HMJB .Gucci Sanabria MD, Date Time Electronically viewed and signed by .Gucci Sanabria MD, on 06/13/2017 09:11 .B/
[2017-06-13 16:30] VITALS: BP 109/67; RESP 18
--- NOTE | 2017-06-13 17:14 | CONS ---
Date/Time of Note Date/Time of Note DATE: 06/13/17 TIME: 17:14 Assessment/Plan Assessment/Plan Chief Complaint/Hosp Course - Post-op SIRS with fever and leukocytosis - resolving - Rectal cancer, s/p laparotomy and low anterior colon resection POD# 6 - Normocytic anemia Recommendations: - Continue Zosyn - will discuss imaging with rest of team Problems: Consultation Date/Type/Reason Admit Date/Time Jun 06, 2017 at 05:15 Type of Consultation: Infectious Disease Exam/Review of Systems Vital Signs Vitals Vital Signs Date Time Temp Pulse Resp B/P Pulse Ox O2 Delivery O2 Flow Rate FiO2 06/13/17 16:30 98.0 60 18 109/67 96 06/12/17 06:08 Room Air 06/09/17 09:00 2.0 Intake and Output 06/12/17 06/12/17 06/13/17 15:00 23:00 07:00 Intake Total 1300 ml 1450 ml Output Total 1950 ml Balance 1300 ml -500 ml Results Result Diagram: 06/13/17 0437 06/13/17 0437 Results 24 hrs Laboratory Tests Test 06/13/17 04:37 White Blood Count 9.1 Red Blood Count 3.86 L Hemoglobin 11.2 L Hematocrit 34.3 L Mean Corpuscular Volume 88.9 Mean Corpuscular Hemoglobin 29.0 Mean Corpuscular Hemoglobin Concent 32.7 Red Cell Distribution Width 13.3 Platelet Count 254 # Mean Platelet Volume 9.3 Neutrophils % 72.6 Lymphocytes % 16.1 Monocytes % 8.6 Eosinophils % 1.9 Basophils % 0.3 Nucleated Red Blood Cells % 0.0 Neutrophils # (Manual) 6.6 Lymphocytes # 1.5 Monocytes # 0.8 Eosinophils # 0.2 Basophils # 0.0 Nucleated Red Blood Cells # 0.0 Sodium Level 139 Potassium Level 3.8 Chloride Level 100 Carbon Dioxide Level 32 H Anion Gap 11 Blood Urea Nitrogen 10 Creatinine 1.00 Glucose Level 107 Calcium Level 9.7 Medications Medications Current Medications Ondansetron HCl (Zofran Inj) 4 mg Q6H PRN IV NAUSEA AND/OR VOMITING Last administered on 06/12/17t 22:13; Admin Dose 4 MG; Start 06/06/17 at 12:00 Morphine Sulfate 2 MG/HR CONTINUOUS RATE 2... Q4PCA IV ; Start 9/5/17 at 12:00 Potassium Chloride/Dextrose/ Sod Cl 1,000 ml @ 125 mls/hr Q8H IV Last administered on 06/13/17 12:13; Admin Dose 125 MLS/HR; Start 06/06/17 at 11:32 Acetaminophen (Ofirmev 1000mg/ 100ml Iv) 100 ml @ 400 mls/hr Q6H PRN IVPB PAIN Last administered on 06/12/17 22:13; Admin Dose 400 MLS/HR; Start 06/06/17 at 12:00 Naloxone HCl (Narcan) 0.2 mg Q2M PRN IV FOR RESP RATE 8 OR LESS; Start 06/06/17 at 12:30 Lorazepam (Ativan) 0.5 mg Q6H PRN IV ANXIETY Last administered on 06/10/17 19: 53; Admin Dose 0.5 MG; Start 06/06/17 at 17:00 Phenol (Chloraseptic Throat [place]) 2 spray Q2H PRN MT SORE THROAT Last administered on 06/10/17 02:18; Admin Dose 2 SPRAY; Start 06/06/17 at 20:00 Morphine Sulfate 2 mg 2 mg Q1HWA PRN IV PAIN LEVEL 7-10 Last administered on 12:27; Admin Dose 2 MG; Start 06/07/17 at 01:30 Piperacillin Sod/ Tazobactam Sod (Zosyn 3.375gm/ 100 ml (Pmx)) 100 ml @ 200 mls /hr Q6 IVPB Last administered on 06/13/17 12:13; Admin Dose 200 MLS/HR; Start 06/08/17 at 18:00 CHARLENE SCHAEEFR MD Jun 13, 2017 17:14
--- NOTE | 2017-06-13 18:35 | PN ---
Date/Time of Note Date/Time of Note DATE: 06/13/17 TIME: 18:35 Assessment/Plan Lines/Catheters IV Catheter Type (from Nrsg): Peripheral IV Urinary Cath still in place: No Assessment/Plan Assessment/Plan - Febrile condition- sp post op - Tylenol, cooling measures - per surgery - On VANCO Zosyn - cont to monitor - status post low anterior colon resection. - per surgery - pain control - IVF -- Sigmoid colon cancer Dw Dr Plunkett/staff Subjective 24 Hr Interval Summary Free Text/Dictation stil on full liquids, afebrile. Constitutional: requiring IVF Exam/Review of Systems Vital Signs Vitals Vital Signs Date Time Temp Pulse Resp B/P Pulse Ox O2 Delivery O2 Flow Rate FiO2 06/13/17 16:30 98.0 60 18 109/67 96 06/12/17 06:08 Room Air 06/09/17 09:00 2.0 Intake and Output 06/12/17 06/12/17 06/13/17 15:00 23:00 07:00 Intake Total 1300 ml 1450 ml Output Total 1950 ml Balance 1300 ml -500 ml Results Result Diagram: 06/13/17 0437 06/13/17 0437 Results 24 hrs Laboratory Tests Test 06/13/17 04:37 White Blood Count 9.1 Red Blood Count 3.86 L Hemoglobin 11.2 L Hematocrit 34.3 L Mean Corpuscular Volume 88.9 Mean Corpuscular Hemoglobin 29.0 Mean Corpuscular Hemoglobin Concent 32.7 Red Cell Distribution Width 13.3 Platelet Count 254 # Mean Platelet Volume 9.3 Neutrophils % 72.6 Lymphocytes % 16.1 Monocytes % 8.6 Eosinophils % 1.9 Basophils % 0.3 Nucleated Red Blood Cells % 0.0 Neutrophils # (Manual) 6.6 Lymphocytes # 1.5 Monocytes # 0.8 Eosinophils # 0.2 Basophils # 0.0 Nucleated Red Blood Cells # 0.0 Sodium Level 139 Potassium Level 3.8 Chloride Level 100 Carbon Dioxide Level 32 H Anion Gap 11 Blood Urea Nitrogen 10 Creatinine 1.00 Glucose Level 107 Calcium Level 9.7 Medications Medications Current Medications Ondansetron HCl (Zofran Inj) 4 mg Q6H PRN IV NAUSEA AND/OR VOMITING Last administered on 06/12/17t 22:13; Admin Dose 4 MG; Start 06/06/17 at 12:00 Morphine Sulfate 2 MG/HR CONTINUOUS RATE 2... Q4PCA IV ; Start 06/06/17 at 12:00 Potassium Chloride/Dextrose/ Sod Cl 1,000 ml @ 125 mls/hr Q8H IV Last administered on 06/13/17 12:13; Admin Dose 125 MLS/HR; Start 06/06/17 at 11:32 Acetaminophen (Ofirmev 1000mg/ 100ml Iv) 100 ml @ 400 mls/hr Q6H PRN IVPB PAIN Last administered on 06/12/17 22:13; Admin Dose 400 MLS/HR; Start 06/06/17 at 12:00 Naloxone HCl (Narcan) 0.2 mg Q2M PRN IV FOR RESP RATE 8 OR LESS; Start 06/06/17 at 12:30 Lorazepam (Ativan) 0.5 mg Q6H PRN IV ANXIETY Last administered on 06/10/17 19: 53; Admin Dose 0.5 MG; Start 06/06/17 at 17:00 Phenol (Chloraseptic Throat [place]) 2 spray Q2H PRN MT SORE THROAT Last administered on 06/10/17 02:18; Admin Dose 2 SPRAY; Start 06/06/17 at 20:00 Morphine Sulfate 2 mg 2 mg Q1HWA PRN IV PAIN LEVEL 7-10 Last administered on 12:27; Admin Dose 2 MG; Start 06/07/17 at 01:30 Piperacillin Sod/ Tazobactam Sod (Zosyn 3.375gm/ 100 ml (Pmx)) 100 ml @ 200 mls /hr Q6 IVPB Last administered on 06/13/17 17:37; Admin Dose 200 MLS/HR; Start 06/08/17 at 18:00 KERRY RECINOS Jun 13, 2017 18:35
[2017-06-13 20:12] VITALS: BP 120/69; RESP 18
[2017-06-14] MEDS: PIPER-TAZO 3.375 GM IV (PMX) 100 ML IVPB SCH ×3 (00:07→13:06)
[2017-06-14 01:40] VITALS: BP 114/67; RESP 18
[2017-06-14 05:15] LABS: BASOPHILS % 0.4 % (0.0-2.0); EOSINOPHILS # 0.2 10^3/ul (0.0-0.5); HEMATOCRIT 35.1 % (42.0-52.0); HEMOGLOBIN 11.8 g/dl (14.0-18.0); LYMPHOCYTES # 1.3 10^3/ul (0.8-2.9); LYMPHOCYTES % 14.7 % (15.0-51.0); MEAN CORPUSCULAR HEMOGLOBIN 29.9 pg (29.0-33.0); MEAN CORPUSCULAR HGB CONC 33.6 g/dl (32.0-37.0); MEAN CORPUSCULAR VOLUME 89.1 fl (82.0-101.0); MONOCYTE # 0.6 10^3/ul (0.3-0.9); MONOCYTES % 7.1 % (0.0-11.0); NEUTROPHILS % 75.2 % (39.0-77.0); PLATELET COUNT 292 10^3/UL (140-415); RED BLOOD COUNT 3.94 10^6/ul (4.70-6.10); RED CELL DISTRIBUTION WIDTH 13.1 % (11.5-14.5); WHITE BLOOD COUNT 8.9 10^3/ul (4.8-10.8)
[2017-06-14 05:35] LABS: CALCIUM 9.7 mg/dl (8.4-10.2); CREATININE 1.1 mg/dl (0.61-1.24); POTASSIUM 3.8 mmol/L (3.5-5.1)
[2017-06-14] MEDS: D5W-0.45 NACL + KCL 20 MEQ 1,000 ML IV SCH ×3 (05:38→19:32)
--- NOTE | 2017-06-14 08:25 | PN ---
DATE: 06/13/2017 Postop day number 7, is status post low anterior resection of the rectosigmoid, with cancer of the rectum. SUBJECTIVE DATA: Does not have any complaint, no chills, no fever, no nausea, no vomiting. Had full liquid diet today, tolerating. Has had bowel movements, loose, almost watery. OBJECTIVE DATA: GENERAL: Awake, alert, oriented x3. VITAL SIGNS: Stable. Temperature is 98, heart rate 67, respirations 18, blood pressure 110/62, saturation 97. ABDOMEN: Soft. No guarding. No rigidity. No tenderness. No rebound tenderness. LABORATORY AND DIAGNOSTIC DATA: WBC today is 9,100, yesterday was 8000, and the day before the level was 9900. Differential is 72.6 percent segmented today and yesterday was 71.3 percent segmented, normal. No bandemia. Chemistry: Sodium, potassium within normal limits. BUN/creatinine within normal limits. ASSESSMENT AND PLAN: This is a 57-year-old gentleman who about a week ago underwent low anterior resection for the cancer of the upper part of the rectum, with end-to-end anastomosis with the stapler. On the fifth day, patient started passing gas and having bowel movement and tolerated later on clear liquid and full liquid. Yesterday, the 6th postop day, I did a CT scan with oral contrast of the abdomen and pelvis to make sure about the options of possible leak. The CT scan showed large fluid collection seen in the posterior pelvis and presacral space. This measures approximately 10.6 cm in maximal cranial-caudal dimension and 5.4 x 3.8 cm in maximal transverse dimension. , and contrast is not seen to confirm a definite leak at this time. Also they noted, as was mentioned, that there is contrast throughout the entire colon, which has not leaked out into this presacral fluid collection. So the pictures were reviewed along with Dr. Thayer, and Dr. Thayer believes that we are not going to request Radiology to drain it percutaneously because he does not think that this is a leakage. It is possible to be collection, due to fluid which was injected for the pelvic cavity at the end of the operation or seroma for accumulation. The basis of this thinking is that patient is afebrile. He does not have any leukocyte count, no shift to the left. Therefore, we are going to feed patient full liquid today, as well keep him overnight to monitor repeat CBC and check vital signs q.4 hours. If everything is stable, hopefully we are going to start him on regular diet tomorrow and either discharge him tomorrow afternoon or on morning. Dictated By: Farrukh Ni MD /paola/elenita /Document#: [id number] TESSY
--- NOTE | 2017-06-14 14:20 | PN ---
Date/Time of Note Date/Time of Note DATE: 06/14/17 TIME: 14:13 Assessment/Plan VTE Prophylaxis VTE Prophylaxis Intervention: ambulation Lines/Catheters IV [facility]from [facility] Peripheral IV Urinary Cath still in place: No Assessment/Plan Assessment/Plan Postop day #8. Status post laparotomy low anterior resection of the rectosigmoid for cancer of the rectosigmoid area and end-to-end anastomosis. Mentioned that on postop day #4 5 patient started to having a little bit of fever and leukocytosis increased so we have started the patient on antibiotic Zosyn within 2 days her leukocyte count normalized. Also 2 days ago with a CT scan abdomen and pelvis revealed presence of some fluid accumulation presacral but no evidence of leak. Today there was minimal discharge from the upper part of the incision line removed for his shaheen and minimal amount of drainage brownish was evacuated and culture was sent and the wound was packed with Betadine sponges. Plan: DC the antibiotic as of now and we will keep the patient overnight we will check a CBC tomorrow morning if the patient is a stable by tomorrow morning going to discharge the patient tomorrow also requested home health care case manager to plan home healthcare to take care of his abdominal wound when the patient goes home. Subjective 24 Hr Interval Summary Free Text/Dictation Postop day #8 No complaint, as tolerated regular diet so far. Today he had a bowel movement which was semisolid. Still is on Zosyn. Exam/Review of Systems Vital Signs Vitals Vital Signs Date Time Temp Pulse Resp B/P Pulse Ox O2 Delivery O2 Flow Rate FiO2 06/14/17 01:40 98.4 56 18 114/67 96 06/12/17 06:08 Room Air Intake and Output 06/13/17 06/13/17 06/14/17 15:00 23:00 07:00 Intake Total 100 ml 3200 ml 1900 ml Output Total 1200 ml 1500 ml Balance 100 ml 2000 ml 400 ml Exam Awake alert oriented 3 in no acute distress. AC 8000 with normal differential. No fever. Abdomen is not distended soft mild tenderness on deep pressure on the left lower quadrant. 9 per part of the incision line there is a slight amount of drainage between the shaheen. Removed for the staplers opened the wound slight what appeared to be like liquefied hematoma was drained culture was sent. I solution applied and sponges were applied on top of it. Results Result Diagram: 06/14/17 0442 06/14/17 0442 Results 24 hrs Laboratory Tests Test 06/14/17 04:42 White Blood Count 8.9 Red Blood Count 3.94 L Hemoglobin 11.8 L Hematocrit 35.1 L Mean Corpuscular Volume 89.1 Mean Corpuscular Hemoglobin 29.9 Mean Corpuscular Hemoglobin Concent 33.6 Red Cell Distribution Width 13.1 Platelet Count 292 Mean Platelet Volume 9.0 Neutrophils % 75.2 Lymphocytes % 14.7 L Monocytes % 7.1 Eosinophils % 2.0 Basophils % 0.4 Nucleated Red Blood Cells % 0.0 Neutrophils # (Manual) 6.7 Lymphocytes # 1.3 Monocytes # 0.6 Eosinophils # 0.2 Basophils # 0.0 Nucleated Red Blood Cells # 0.0 Erythrocyte Sedimentation Rate 122 H Sodium Level 140 Potassium Level 3.8 Chloride Level 102 Carbon Dioxide Level 31 Anion Gap 11 Blood Urea Nitrogen 9 Creatinine 1.10 Glucose Level 112 Calcium Level 9.7 Medications Medications Current Medications Ondansetron HCl (Zofran Inj) 4 mg Q6H PRN IV NAUSEA AND/OR VOMITING Last administered on 06/12/17 22:13; Admin Dose 4 MG; Start 06/06/17 at 12:00 Morphine Sulfate 2 MG/HR CONTINUOUS RATE 2... Q4PCA IV ; Start 06/06/17 at 12:00 Potassium Chloride/Dextrose/ Sod Cl 1,000 ml @ 125 mls/hr Q8H IV Last administered on 06/14/17 13:07; Admin Dose 125 MLS/HR; Start 06/06/17 at 11:32 Acetaminophen (Ofirmev 1000mg/ 100ml Iv) 100 ml @ 400 mls/hr Q6H PRN IVPB PAIN Last administered on 06/12/17 22:13; Admin Dose 400 MLS/HR; Start 06/06/17 at 12:00 Naloxone HCl (Narcan) 0.2 mg Q2M PRN IV FOR RESP RATE 8 OR LESS; Start 06/06/17 at 12:30 Lorazepam (Ativan) 0.5 mg Q6H PRN IV ANXIETY Last administered on 06/10/17 19: 53; Admin Dose 0.5 MG; Start 06/06/17 at 17:00 Phenol (Chloraseptic Throat [place]) 2 spray Q2H PRN MT SORE THROAT Last administered on 06/10/17 02:18; Admin Dose 2 SPRAY; Start 06/06/17 at 20:00 Morphine Sulfate (morphine) 2 mg Q1HWA PRN IV PAIN LEVEL 7-10 Last administered on 06/08/17 12:27; Admin Dose 2 MG; Start 06/07/17 at 01:30 ISAMAR GODINEZ MD Jun 14, 2017 14:20
--- NOTE | 2017-06-14 14:33 | PN ---
Date/Time of Note Date/Time of Note DATE: 06/14/17 TIME: 14:32 Assessment/Plan VTE Prophylaxis VTE Prophylaxis Intervention: other Lines/Catheters IV Catheter Type (from Nrsg): Peripheral IV Urinary Cath still in place: No Assessment/Plan Assessment/Plan - Febrile condition- sp post op- Resolved - Tylenol, cooling measures - per surgery - On VANCO, Zosyn - cont to monitor - status post low anterior colon resection. - per surgery - pain control - IVF -- Sigmoid colon cancer Blaine Plunkett/staff Subjective 24 Hr Interval Summary Respiratory: no complaints Cardiovascular: no complaints Gastrointestinal: other, pain (at times- ok now) Genitourinary: no complaints Musculoskeletal: no complaints Skin: no complaints Neurologic: no complaints Exam/Review of Systems Vital Signs Vitals Vital Signs Date Time Temp Pulse Resp B/P Pulse Ox O2 Delivery O2 Flow Rate FiO2 06/14/17 01:40 98.4 56 18 114/67 96 06/12/17 06:08 Room Air Intake and Output 06/13/17 06/13/17 06/14/17 15:00 23:00 07:00 Intake Total 100 ml 3200 ml 1900 ml Output Total 1200 ml 1500 ml Balance 100 ml 2000 ml 400 ml Exam Constitutional: alert, oriented, well developed Respiratory: clear to auscultation, normal air movement Cardiovascular: nl pulses, regular rate and rhythm Gastrointestinal: non-tender, soft Musculoskeletal: nl extremities to inspection Extremities: normal pulses Neurological: nl mental status, nl speech Results Result Diagram: 06/14/17 0442 06/14/17 0442 Results 24 hrs Laboratory Tests Test 06/14/17 04:42 White Blood Count 8.9 Red Blood Count 3.94 L Hemoglobin 11.8 L Hematocrit 35.1 L Mean Corpuscular Volume 89.1 Mean Corpuscular Hemoglobin 29.9 Mean Corpuscular Hemoglobin Concent 33.6 Red Cell Distribution Width 13.1 Platelet Count 292 Mean Platelet Volume 9.0 Neutrophils % 75.2 Lymphocytes % 14.7 L Monocytes % 7.1 Eosinophils % 2.0 Basophils % 0.4 Nucleated Red Blood Cells % 0.0 Neutrophils # (Manual) 6.7 Lymphocytes # 1.3 Monocytes # 0.6 Eosinophils # 0.2 Basophils # 0.0 Nucleated Red Blood Cells # 0.0 Erythrocyte Sedimentation Rate 122 H Sodium Level 140 Potassium Level 3.8 Chloride Level 102 Carbon Dioxide Level 31 Anion Gap 11 Blood Urea Nitrogen 9 Creatinine 1.10 Glucose Level 112 Calcium Level 9.7 Medications Medications Current Medications Ondansetron HCl (Zofran Inj) 4 mg Q6H PRN IV NAUSEA AND/OR VOMITING Last administered on 06/12/17 22:13; Admin Dose 4 MG; Start 06/06/17 at 12:00 Morphine Sulfate 2 MG/HR CONTINUOUS RATE 2... Q4PCA IV ; Start 06/06/17 at 12:00 Potassium Chloride/Dextrose/ Sod Cl 1,000 ml @ 125 mls/hr Q8H IV Last administered on 06/14/17 13:07; Admin Dose 125 MLS/HR; Start 06/06/17 at 11:32 Acetaminophen (Ofirmev 1000mg/ 100ml Iv) 100 ml @ 400 mls/hr Q6H PRN IVPB PAIN Last administered on 06/12/17 22:13; Admin Dose 400 MLS/HR; Start 06/06/17 at 12:00 Naloxone HCl (Narcan) 0.2 mg Q2M PRN IV FOR RESP RATE 8 OR LESS; Start 06/06/17 at 12:30 Lorazepam (Ativan) 0.5 mg Q6H PRN IV ANXIETY Last administered on 06/10/17 19: 53; Admin Dose 0.5 MG; Start 06/06/17 at 17:00 Phenol (Chloraseptic Throat [place]) 2 spray Q2H PRN MT SORE THROAT Last administered on 06/10/17 02:18; Admin Dose 2 SPRAY; Start 06/06/17 at 20:00 Morphine Sulfate (morphine) 2 mg Q1HWA PRN IV PAIN LEVEL 7-10 Last administered on 06/08/17 12:27; Admin Dose 2 MG; Start 06/07/17 at 01:30 KERRY RECINOS Jun 14, 2017 14:33
--- NOTE | 2017-06-14 16:13 | CONS ---
Date/Time of Note Date/Time of Note DATE: 06/14/17 TIME: 16:12 Assessment/Plan Assessment/Plan Chief Complaint/Hosp Course - Post-op SIRS with fever and leukocytosis - resolving - Rectal cancer, s/p laparotomy and low anterior colon resection POD# 6 - Normocytic anemia Recommendations: - Consider Continuing Zosyn given CT findings - will discuss imaging with rest of team Problems: Consultation Date/Type/Reason Admit Date/Time Jun 06, 2017 at 05:15 Type of Consultation: Infectious Disease Exam/Review of Systems Vital Signs Vitals Vital Signs Date Time Temp Pulse Resp B/P Pulse Ox O2 Delivery O2 Flow Rate FiO2 06/14/17 01:40 98.4 56 18 114/67 96 06/12/17 06:08 Room Air Intake and Output 06/13/17 06/13/17 06/14/17 15:00 23:00 07:00 Intake Total 100 ml 3200 ml 1900 ml Output Total 1200 ml 1500 ml Balance 100 ml 2000 ml 400 ml Results Result Diagram: 06/14/17 0442 06/14/17 0442 Results 24 hrs Laboratory Tests Test 06/14/17 04:42 White Blood Count 8.9 Red Blood Count 3.94 L Hemoglobin 11.8 L Hematocrit 35.1 L Mean Corpuscular Volume 89.1 Mean Corpuscular Hemoglobin 29.9 Mean Corpuscular Hemoglobin Concent 33.6 Red Cell Distribution Width 13.1 Platelet Count 292 Mean Platelet Volume 9.0 Neutrophils % 75.2 Lymphocytes % 14.7 L Monocytes % 7.1 Eosinophils % 2.0 Basophils % 0.4 Nucleated Red Blood Cells % 0.0 Neutrophils # (Manual) 6.7 Lymphocytes # 1.3 Monocytes # 0.6 Eosinophils # 0.2 Basophils # 0.0 Nucleated Red Blood Cells # 0.0 Erythrocyte Sedimentation Rate 122 H Sodium Level 140 Potassium Level 3.8 Chloride Level 102 Carbon Dioxide Level 31 Anion Gap 11 Blood Urea Nitrogen 9 Creatinine 1.10 Glucose Level 112 Calcium Level 9.7 Medications Medications Current Medications Ondansetron HCl (Zofran Inj) 4 mg Q6H PRN IV NAUSEA AND/OR VOMITING Last administered on 06/12/17t 22:13; Admin Dose 4 MG; Start 06/06/17 at 12:00 Morphine Sulfate 2 MG/HR CONTINUOUS RATE 2... Q4PCA IV ; Start 06/06/17 at 12:00 Potassium Chloride/Dextrose/ Sod Cl 1,000 ml @ 125 mls/hr Q8H IV Last administered on 06/14/17 13:07; Admin Dose 125 MLS/HR; Start 06/06/17 at 11:32 Acetaminophen (Ofirmev 1000mg/ 100ml Iv) 100 ml @ 400 mls/hr Q6H PRN IVPB PAIN Last administered on 06/12/17 22:13; Admin Dose 400 MLS/HR; Start 06/06/17 at 12:00 Naloxone HCl (Narcan) 0.2 mg Q2M PRN IV FOR RESP RATE 8 OR LESS; Start 06/06/17 at 12:30 Lorazepam (Ativan) 0.5 mg Q6H PRN IV ANXIETY Last administered on 06/10/17 19: 53; Admin Dose 0.5 MG; Start 06/06/17 at 17:00 Phenol (Chloraseptic Throat [place]) 2 spray Q2H PRN MT SORE THROAT Last administered on 06/10/17 02:18; Admin Dose 2 SPRAY; Start 06/06/17 at 20:00 Morphine Sulfate (morphine) 2 mg Q1HWA PRN IV PAIN LEVEL 7-10 Last administered on 06/08/17 12:27; Admin Dose 2 MG; Start 06/07/17 at 01:30 Silver Sulfadiazine (Thermazene 1% 25 Gm) 1 applic BID TOP ; Start 06/14/17 at 21:00 CHARLENE SCHAEFER MD Jun 14, 2017 16:13
[2017-06-14 19:14] VITALS: BP 114/66; RESP 22
[2017-06-14] MEDS: SILVER SULFADIAZINE 1% 25 GM CR TOP SCH (21:32)
[2017-06-15 01:50] VITALS: BP 125/71; RESP 22
[2017-06-15] MEDS: D5W-0.45 NACL + KCL 20 MEQ 1,000 ML IV SCH ×3 (03:32→19:32)
[2017-06-15 05:28] LABS: BASOPHILS % 0.3 % (0.0-2.0); EOSINOPHILS # 0.1 10^3/ul (0.0-0.5); EOSINOPHILS % 1.6 % (0.0-7.0); HEMATOCRIT 32.9 % (42.0-52.0); LYMPHOCYTES # 1.4 10^3/ul (0.8-2.9); LYMPHOCYTES % 18.3 % (15.0-51.0); MEAN CORPUSCULAR HEMOGLOBIN 29.6 pg (29.0-33.0); MEAN CORPUSCULAR HGB CONC 33.4 g/dl (32.0-37.0); MEAN CORPUSCULAR VOLUME 88.7 fl (82.0-101.0); MEAN PLATELET VOLUME 9.3 fl (7.4-10.4); MONOCYTE # 0.6 10^3/ul (0.3-0.9); MONOCYTES % 8.3 % (0.0-11.0); NEUTROPHIL # 5.4 10^3/ul (1.6-7.5); NEUTROPHILS % 71.1 % (39.0-77.0); PLATELET COUNT 310 10^3/UL (140-415); RED BLOOD COUNT 3.71 10^6/ul (4.70-6.10); RED CELL DISTRIBUTION WIDTH 13.3 % (11.5-14.5); WHITE BLOOD COUNT 7.6 10^3/ul (4.8-10.8)
[2017-06-15 05:54] VITALS: BP 124/71; RESP 22
[2017-06-15 05:54] LABS: CALCIUM 9.5 mg/dl (8.4-10.2); CREATININE 0.97 mg/dl (0.61-1.24); POTASSIUM 3.7 mmol/L (3.5-5.1)
[2017-06-15 07:31] VITALS: BP 127/76; RESP 18
[2017-06-15] MEDS: SILVER SULFADIAZINE 1% 25 GM CR TOP SCH (09:03)
--- NOTE | 2017-06-15 13:07 | PN ---
Date/Time of Note Date/Time of Note DATE: 06/15/17 TIME: 12:53 Assessment/Plan VTE Prophylaxis VTE Prophylaxis Intervention: ambulation Lines/Catheters [facility] [place] Urinary Cath still in place: No Assessment/Plan Assessment/Plan 57 years old male status post laparotomy no anterior resection of the cancer of the rectosigmoid junction. Pathology has showed all margins clear and 9 need for node negative. On the third day postop patient had leukocytosis and slight fever , antibiotic Zosyn was started leukocyte was normalized , at that time patient did not have any abdominal complaints but had a lot of cough productive sputum which was cleared within 48 hours., Before starting the patient on regular diet we ordered a CT scan of the abdomen and pelvis with oral contrast which showed presence of presacral fluid collection but per Radiologist opinion did not appear to have a leak. On this basis yesterday I stopped the antibiotic and started patient on regular diet expecting that if there is any leak, while off the antibiotic and in the hospital the process will show itself patient will develop fever and leukocytosis. Also a small amount of drainage from the incisional wound was managed yesterday and a culture was sent from the discharge and it grew 1+ gram-negative rods but the organism is not identified yet. Today discussed with Dr. Plunkett and he suggested to keep the patient couple of more days off antibiotics and observe and take care of the abdominal wound locally. I agree and will take care of the abdominal wound locally only. And observe the patient Subjective 24 Hr Interval Summary Free Text/Dictation Postop day #9 Overnight no complaints no abdominal pain no nausea no vomiting tolerating a regular diet has had semisolid bowel movement. Antibiotic was DC'd last night. Exam/Review of Systems Vital Signs Vitals Vital Signs Date Time Temp Pulse Resp B/P Pulse Ox O2 Delivery O2 Flow Rate FiO2 06/15/17 07:31 98.1 58 18 127/76 95 06/12/17 06:08 Room Air Intake and Output 06/14/17 06/14/17 06/15/17 15:00 23:00 07:00 Intake Total 100 ml 2100 ml 800 ml Output Total 1300 ml 1080 ml Balance 100 ml 800 ml -280 ml Exam Awake alert oriented 3. No acute distress. Temperature 98.1. Heart rate 58 and regular saturation 95% room air. Blood pressure 127/76. WBC 7600 with 79% segmented. Dominant wound center lesion was sent yesterday the culture has grown 1+ gram- negative rods Dressing was changed abdomen is soft. No cellulitis. Results Result Diagram: 06/15/17 0432 06/15/17 0432 Results 24 hrs Laboratory Tests Test 06/15/17 04:32 White Blood Count 7.6 Red Blood Count 3.71 L Hemoglobin 11.0 L Hematocrit 32.9 L Mean Corpuscular Volume 88.7 Mean Corpuscular Hemoglobin 29.6 Mean Corpuscular Hemoglobin Concent 33.4 Red Cell Distribution Width 13.3 Platelet Count 310 Mean Platelet Volume 9.3 Neutrophils % 71.1 Lymphocytes % 18.3 Monocytes % 8.3 Eosinophils % 1.6 Basophils % 0.3 Nucleated Red Blood Cells % 0.0 Neutrophils # 5.4 Lymphocytes # 1.4 Monocytes # 0.6 Eosinophils # 0.1 Basophils # 0.0 Nucleated Red Blood Cells # 0.0 Sodium Level 138 Potassium Level 3.7 Chloride Level 101 Carbon Dioxide Level 30 Anion Gap 11 Blood Urea Nitrogen 13 Creatinine 0.97 Glucose Level 92 Calcium Level 9.5 Medications Medications Current Medications Ondansetron HCl (Zofran Inj) 4 mg Q6H PRN IV NAUSEA AND/OR VOMITING Last administered on 06/12/17 22:13; Admin Dose 4 MG; Start 06/06/17 at 12:00 Morphine Sulfate 2 MG/HR CONTINUOUS RATE 2... Q4PCA IV ; Start 06/06/17 at 12:00 Potassium Chloride/Dextrose/ Sod Cl 1,000 ml @ 125 mls/hr Q8H IV Last administered on 06/14/17 13:07; Admin Dose 125 MLS/HR; Start 06/06/17 at 11:32 Acetaminophen (Ofirmev 1000mg/ 100ml Iv) 100 ml @ 400 mls/hr Q6H PRN IVPB PAIN Last administered on 06/12/17 22:13; Admin Dose 400 MLS/HR; Start 06/06/17 at 12:00 Naloxone HCl (Narcan) 0.2 mg Q2M PRN IV FOR RESP RATE 8 OR LESS; Start 06/06/17 at 12:30 Lorazepam (Ativan) 0.5 mg Q6H PRN IV ANXIETY Last administered on 06/10/17 19: 53; Admin Dose 0.5 MG; Start 06/06/17 at 17:00 Phenol (Chloraseptic Throat [place]) 2 spray Q2H PRN MT SORE THROAT Last administered on 06/10/17 02:18; Admin Dose 2 SPRAY; Start 06/06/17 at 20:00 Morphine Sulfate (morphine) 2 mg Q1HWA PRN IV PAIN LEVEL 7-10 Last administered on 06/08/17 12:27; Admin Dose 2 MG; Start 06/07/17 at 01:30 Silver Sulfadiazine (Thermazene 1% 25 Gm) 1 applic BID TOP Last administered on 06/15/17 09:03; Admin Dose 1 APPLIC; Start 06/14/17 at 21:00 ISAMAR GODINEZ MD Jun 15, 2017 13:07
--- NOTE | 2017-06-15 13:16 | CONS ---
Date/Time of Note Date/Time of Note DATE: 06/15/17 TIME: 13:16 Assessment/Plan Assessment/Plan Chief Complaint/Hosp Course - Post-op SIRS with fever and leukocytosis - resolved - Rectal cancer, s/p laparotomy and low anterior colon resection 06/06/2017 - Abdominal incisional wound growing GNR - Large fluid collection with gas bubbles are seen within the lower posterior pelvis and presacral space per CT abd/pelvis on 06/13/2017 - Normocytic anemia Recommendations: - Monitor closely off antibiotics. - Will try to review CT results with Radiology. - Follow up abdominal wound culture results (Prelim 1+ GNR) - Continue local wound care Management d/w patient, Dr. Ni, and Dr. Hercules Problems: Consultation Date/Type/Reason Admit Date/Time Jun 06, 2017 at 05:15 Initial Consult Date 06/11/17 Type of Consultation: Infectious Disease 24 HR Interval Summary Free Text/Dictation Zosyn dc'd yesterday by Dr. Ni, diet advanced to regular, wound culture results growing GNR, and ESR 122 per d/w Dr. Ni. Afebrile, tolerating advanced diet. Denies any pain, SOB, n/v/d, dysuria. Exam/Review of Systems Vital Signs Vitals Vital Signs Date Time Temp Pulse Resp B/P Pulse Ox O2 Delivery O2 Flow Rate FiO2 06/15/17 07:31 98.1 58 18 127/76 95 06/12/17 06:08 Room Air Intake and Output 06/14/17 06/14/17 06/15/17 15:00 23:00 07:00 Intake Total 100 ml 2100 ml 800 ml Output Total 1300 ml 1080 ml Balance 100 ml 800 ml -280 ml Exam Constitutional: alert, oriented, well developed Psych: nl mood/affect Head: atraumatic, normocephalic Eyes: nl conjunctiva, nl lids ENMT: nl external ears & nose Neck: supple Respiratory: clear to auscultation, normal air movement Cardiovascular: nl pulses, regular rate and rhythm Gastrointestinal: non-tender, other (abdominal dressing c/d/i -> underneath are ML shaheen with one area of dehiscence with trace amount serous drainage), soft Musculoskeletal: nl extremities to inspection Extremities: normal pulses Neurological: nl mental status, nl speech, nl strength Skin: nl turgor, No rash or lesions Results Result Diagram: 06/15/17 0432 06/15/17 0432 Results 24 hrs Laboratory Tests Test 06/15/17 04:32 White Blood Count 7.6 Red Blood Count 3.71 L Hemoglobin 11.0 L Hematocrit 32.9 L Mean Corpuscular Volume 88.7 Mean Corpuscular Hemoglobin 29.6 Mean Corpuscular Hemoglobin Concent 33.4 Red Cell Distribution Width 13.3 Platelet Count 310 Mean Platelet Volume 9.3 Neutrophils % 71.1 Lymphocytes % 18.3 Monocytes % 8.3 Eosinophils % 1.6 Basophils % 0.3 Nucleated Red Blood Cells % 0.0 Neutrophils # 5.4 Lymphocytes # 1.4 Monocytes # 0.6 Eosinophils # 0.1 Basophils # 0.0 Nucleated Red Blood Cells # 0.0 Sodium Level 138 Potassium Level 3.7 Chloride Level 101 Carbon Dioxide Level 30 Anion Gap 11 Blood Urea Nitrogen 13 Creatinine 0.97 Glucose Level 92 Calcium Level 9.5 Medications Medications Current Medications Ondansetron HCl (Zofran Inj) 4 mg Q6H PRN IV NAUSEA AND/OR VOMITING Last administered on 06/12/17 22:13; Admin Dose 4 MG; Start 06/06/17 at 12:00 Morphine Sulfate 2 MG/HR CONTINUOUS RATE 2... Q4PCA IV ; Start 06/06/17 at 12:00 Potassium Chloride/Dextrose/ Sod Cl 1,000 ml @ 125 mls/hr Q8H IV Last administered on 06/14/17 13:07; Admin Dose 125 MLS/HR; Start 06/06/17 at 11:32 Acetaminophen (Ofirmev 1000mg/ 100ml Iv) 100 ml @ 400 mls/hr Q6H PRN IVPB PAIN Last administered on 06/12/17 22:13; Admin Dose 400 MLS/HR; Start 06/06/17 at 12:00 Naloxone HCl (Narcan) 0.2 mg Q2M PRN IV FOR RESP RATE 8 OR LESS; Start 06/06/17 at 12:30 Lorazepam (Ativan) 0.5 mg Q6H PRN IV ANXIETY Last administered on 06/10/17 19: 53; Admin Dose 0.5 MG; Start 06/06/17 at 17:00 Phenol (Chloraseptic Throat [place]) 2 spray Q2H PRN MT SORE THROAT Last administered on 06/10/17 02:18; Admin Dose 2 SPRAY; Start 06/06/17 at 20:00 Morphine Sulfate (morphine) 2 mg Q1HWA PRN IV PAIN LEVEL 7-10 Last administered on 06/08/17 12:27; Admin Dose 2 MG; Start 06/07/17 at 01:30 Silver Sulfadiazine (Thermazene 1% 25 Gm) 1 applic BID TOP Last administered on 06/15/17 09:03; Admin Dose 1 APPLIC; Start 06/14/17 at 21:[address] abd/pelvis 06/13/2017: 1. Large fluid collection with gas bubbles are seen within the lower posterior pelvis and presacral space. Fluid leakage is a possibility. The postop of abscess (unrelated to leak) is a definite consideration as well. Of note, there is contrast throughout the entire colon which has not leaked out into this presacral fluid collection. 2. Postsurgical changes of the rectum with a surgical microstaple line. 3. Extensive postsurgical changes throughout the pelvis, as expected. TIM SULLIVAN NP Jun 15, 2017 13:16
[2017-06-15 14:30] VITALS: BP 125/72; RESP 18
--- NOTE | 2017-06-15 16:15 | PN ---
Date/Time of Note Date/Time of Note DATE: 06/15/17 TIME: 16:07 Assessment/Plan VTE Prophylaxis VTE Prophylaxis Intervention: ambulation, SCD's Lines/Catheters IV Catheter Type (from Nrsg): Saline Lock Urinary Cath still in place: No Assessment/Plan Assessment/Plan - Febrile condition- sp post op- Resolved - Tylenol, cooling measures - per surgery - On VANCO, Zosyn - cont to monitor - status post low anterior colon resection. - per surgery - pain control - IVF -- Sigmoid colon cancer Patient is off antibiotics and will be observed for couple days. Blaine Plunkett/staff Subjective 24 Hr Interval Summary Eyes: no complaints ENT: no complaints Respiratory: no complaints Cardiovascular: no complaints Gastrointestinal: no complaints Genitourinary: no complaints Skin: bruising Exam/Review of Systems Vital Signs Vitals Vital Signs Date Time Temp Pulse Resp B/P Pulse Ox O2 Delivery O2 Flow Rate FiO2 06/15/17 07:31 98.1 58 18 127/76 95 06/12/17 06:08 Room Air Intake and Output 06/14/17 06/14/17 06/15/17 15:00 23:00 07:00 Intake Total 100 ml 2100 ml 800 ml Output Total 1300 ml 1080 ml Balance 100 ml 800 ml -280 ml Exam Constitutional: alert, oriented, well developed Respiratory: clear to auscultation, normal air movement Cardiovascular: nl pulses, regular rate and rhythm Gastrointestinal: non-tender, soft Musculoskeletal: nl extremities to inspection Extremities: normal pulses Neurological: nl mental status, nl speech Results Result Diagram: 06/15/17 0432 06/15/17 0432 Results 24 hrs Laboratory Tests Test 06/15/17 04:32 White Blood Count 7.6 Red Blood Count 3.71 L Hemoglobin 11.0 L Hematocrit 32.9 L Mean Corpuscular Volume 88.7 Mean Corpuscular Hemoglobin 29.6 Mean Corpuscular Hemoglobin Concent 33.4 Red Cell Distribution Width 13.3 Platelet Count 310 Mean Platelet Volume 9.3 Neutrophils % 71.1 Lymphocytes % 18.3 Monocytes % 8.3 Eosinophils % 1.6 Basophils % 0.3 Nucleated Red Blood Cells % 0.0 Neutrophils # 5.4 Lymphocytes # 1.4 Monocytes # 0.6 Eosinophils # 0.1 Basophils # 0.0 Nucleated Red Blood Cells # 0.0 Sodium Level 138 Potassium Level 3.7 Chloride Level 101 Carbon Dioxide Level 30 Anion Gap 11 Blood Urea Nitrogen 13 Creatinine 0.97 Glucose Level 92 Calcium Level 9.5 Medications Medications Current Medications Ondansetron HCl (Zofran Inj) 4 mg Q6H PRN IV NAUSEA AND/OR VOMITING Last administered on 06/12/17 22:13; Admin Dose 4 MG; Start 06/06/17 at 12:00 Morphine Sulfate 2 MG/HR CONTINUOUS RATE 2... Q4PCA IV ; Start 06/06/17 at 12:00 Potassium Chloride/Dextrose/ Sod Cl 1,000 ml @ 125 mls/hr Q8H IV Last administered on 06/14/17 13:07; Admin Dose 125 MLS/HR; Start 06/06/17 at 11:32 Acetaminophen (Ofirmev 1000mg/ 100ml Iv) 100 ml @ 400 mls/hr Q6H PRN IVPB PAIN Last administered on 06/12/17 22:13; Admin Dose 400 MLS/HR; Start 06/06/17 at 12:00 Naloxone HCl (Narcan) 0.2 mg Q2M PRN IV FOR RESP RATE 8 OR LESS; Start 06/06/17 at 12:30 Lorazepam (Ativan) 0.5 mg Q6H PRN IV ANXIETY Last administered on 06/10/17 19: 53; Admin Dose 0.5 MG; Start 06/06/17 at 17:00 Phenol (Chloraseptic Throat [place]) 2 spray Q2H PRN MT SORE THROAT Last administered on 06/10/17 02:18; Admin Dose 2 SPRAY; Start 06/06/17 at 20:00 Morphine Sulfate (morphine) 2 mg Q1HWA PRN IV PAIN LEVEL 7-10 Last administered on 06/08/17 12:27; Admin Dose 2 MG; Start 06/07/17 at 01:30 Silver Sulfadiazine (Thermazene 1% 25 Gm) 1 applic BID TOP Last administered on 06/15/17 09:03; Admin Dose 1 APPLIC; Start 06/14/17 at 21:00 KERRY RECINOS Jun 15, 2017 16:15
[2017-06-15 21:42] VITALS: BP 112/59; RESP 20
[2017-06-16 00:20] VITALS: BP 114/70; RESP 20
[2017-06-16] MEDS: D5W-0.45 NACL + KCL 20 MEQ 1,000 ML IV SCH ×3 (03:32→19:29)
[2017-06-16] MEDS: SILVER SULFADIAZINE 1% 25 GM CR TOP SCH ×3 (06:04→21:54)
[2017-06-16 08:04] VITALS: BP 117/66; RESP 18
[2017-06-16 08:09] LABS: BASOPHILS % 0.3 % (0.0-2.0); EOSINOPHILS # 0.1 10^3/ul (0.0-0.5); EOSINOPHILS % 0.5 % (0.0-7.0); HEMATOCRIT 35.6 % (42.0-52.0); HEMOGLOBIN 11.6 g/dl (14.0-18.0); LYMPHOCYTES # 0.9 10^3/ul (0.8-2.9); MEAN CORPUSCULAR HEMOGLOBIN 28.8 pg (29.0-33.0); MEAN CORPUSCULAR HGB CONC 32.6 g/dl (32.0-37.0); MEAN CORPUSCULAR VOLUME 88.3 fl (82.0-101.0); MEAN PLATELET VOLUME 8.8 fl (7.4-10.4); MONOCYTE # 0.8 10^3/ul (0.3-0.9); MONOCYTES % 7.2 % (0.0-11.0); NEUTROPHIL # 9.7 10^3/ul (1.6-7.5); NEUTROPHILS % 83.5 % (39.0-77.0); PLATELET COUNT 344 10^3/UL (140-415); RED BLOOD COUNT 4.03 10^6/ul (4.70-6.10); RED CELL DISTRIBUTION WIDTH 13.2 % (11.5-14.5); WHITE BLOOD COUNT 11.6 10^3/ul (4.8-10.8)
[2017-06-16 08:30] LABS: CALCIUM 9.9 mg/dl (8.4-10.2); CREATININE 1.05 mg/dl (0.61-1.24); POTASSIUM 4.1 mmol/L (3.5-5.1)
[2017-06-16] MEDS: ACETAMINOPHEN 1000MG/100ML IV 100 ML IVPB PRN (11:04)
--- NOTE | 2017-06-16 11:43 | PN ---
Date/Time of Note Date/Time of Note DATE: 06/16/17 TIME: 11:35 Assessment/Plan VTE Prophylaxis VTE Prophylaxis Intervention: ambulation Lines/Catheters IV Catheter Type (from [facility]): Saline Lock Urinary Cath still in place: No Assessment/Plan Assessment/Plan Postop day #10. Status post laparotomy low anterior resection of the rectosigmoid with cancer of the rectosigmoid. Has been off antibiotics for 36 hours. Today the WBC has increased leukocyte count is also shifted to the left. Considering report of CT scan which showed presence of some fluid presacral area, will observe the patient 1 more day off the antibiotics and see if the WBC increases or normalizes, or if he starts running fever, if not we are going to discharge him tomorrow. Since the abdominal wound was E. coli and minimal purulent material was present and there is no cellulitis and now the wound is clean by local treatment so I am not going to start the patient on antibiotics for that. We will follow the patient and make discharge decision for tomorrow hopefully. Subjective 24 Hr Interval Summary Free Text/Dictation No new events overnight. Mild abdominal pain left lower quadrant, no chills no fever has been active going around the floor. Has had bilateral leg pain but he does not have it anymore at this time. Loose bowel movement 1 Exam/Review of Systems Vital Signs Vitals Vital Signs Date Time Temp Pulse Resp B/P Pulse Ox O2 Delivery O2 Flow Rate FiO2 06/16/17 08:04 98.1 69 18 117/66 98 Intake and Output 06/15/17 06/15/17 06/16/17 15:00 23:00 07:00 Intake Total 1320 ml Output Total 1700 ml Balance -380 ml Exam Alert awake oriented sitting in the chair. Vital signs temperature 98.1. Heart rate 69. Respiration 18. Blood pressure 117/66. Saturation 98% room air. Abdominal wall wound culture has grown E. coli 1+ sensitive to Cipro and levofloxacin. WBC increased to 11,600 with 83.5% neutrophils which is fifth to the left this is today's blood test. Yesterday it was 8000. Globin and hematocrit 11.6/ 35.6. Platelet 344. Heart rhythm regular lungs clear abdomen not distended dressing change inspected the opening in the midline looks clean. Very minimal tenderness on deep pressure left lower quadrant. Results Result Diagram: 06/16/17 0750 06/16/17 0750 Results 24 hrs Laboratory Tests Test 06/16/17 07:50 White Blood Count 11.6 #H Red Blood Count 4.03 L Hemoglobin 11.6 L Hematocrit 35.6 L Mean Corpuscular Volume 88.3 Mean Corpuscular Hemoglobin 28.8 L Mean Corpuscular Hemoglobin Concent 32.6 Red Cell Distribution Width 13.2 Platelet Count 344 Mean Platelet Volume 8.8 Neutrophils % 83.5 H Lymphocytes % 8.0 L Monocytes % 7.2 Eosinophils % 0.5 Basophils % 0.3 Nucleated Red Blood Cells % 0.0 Neutrophils # 9.7 H Lymphocytes # 0.9 Monocytes # 0.8 Eosinophils # 0.1 Basophils # 0.0 Nucleated Red Blood Cells # 0.0 Sodium Level 139 Potassium Level 4.1 Chloride Level 101 Carbon Dioxide Level 29 Anion Gap 13 Blood Urea Nitrogen 15 Creatinine 1.05 Glucose Level 103 Calcium Level 9.9 Medications Medications Current Medications Ondansetron HCl (Zofran Inj) 4 mg Q6H PRN IV NAUSEA AND/OR VOMITING Last administered on 06/12/17 22:13; Admin Dose 4 MG; Start 06/06/17 at 12:00 Morphine Sulfate 2 MG/HR CONTINUOUS RATE 2... Q4PCA IV ; Start 06/06/17 at 12:00 Potassium Chloride/Dextrose/ Sod Cl 1,000 ml @ 125 mls/hr Q8H IV Last administered on 06/14/17 13:07; Admin Dose 125 MLS/HR; Start 06/06/17 at 11:32 Acetaminophen (Ofirmev 1000mg/ 100ml Iv) 100 ml @ 400 mls/hr Q6H PRN IVPB PAIN Last administered on 06/16/17 11:04; Admin Dose 400 MLS/HR; Start 06/06/17 at 12:00 Naloxone HCl (Narcan) 0.2 mg Q2M PRN IV FOR RESP RATE 8 OR LESS; Start 06/06/17 at 12:30 Lorazepam (Ativan) 0.5 mg Q6H PRN IV ANXIETY Last administered on 06/10/17 19: 53; Admin Dose 0.5 MG; Start 06/06/17 at 17:00 Phenol (Chloraseptic Throat [place]) 2 spray Q2H PRN MT SORE THROAT Last administered on 06/10/17 02:18; Admin Dose 2 SPRAY; Start 06/06/17 at 20:00 Morphine Sulfate (morphine) 2 mg Q1HWA PRN IV PAIN LEVEL 7-10 Last administered on 06/08/17 12:27; Admin Dose 2 MG; Start 06/07/17 at 01:30 Silver Sulfadiazine (Thermazene 1% 25 Gm) 1 applic BID TOP Last administered on 06/16/17 09:35; Admin Dose 1 APPLIC; Start 06/14/17 at 21:00 ISAMAR GODIENZ MD Jun 16, 2017 11:43
--- NOTE | 2017-06-16 14:44 | PN ---
Date/Time of Note Date/Time of Note DATE: 06/16/17 TIME: 14:42 Assessment/Plan VTE Prophylaxis VTE Prophylaxis Intervention: SCD's Lines/Catheters IV Catheter Type (from Nrs): Saline Lock Urinary Cath still in place: No Assessment/Plan Assessment/Plan -Leukocytosis- hold DC today, am labs - Febrile condition- sp post op- Resolved - Tylenol, cooling measures - per surgery - On VANCO, Zosyn - cont to monitor - status post low anterior colon resection. - per surgery - pain control - IVF -- Sigmoid colon cancer Patient is off antibiotics and will be observed for couple days. Blaine Plunkett/staff Subjective 24 Hr Interval Summary Respiratory: no complaints Cardiovascular: no complaints Gastrointestinal: no complaints Genitourinary: no complaints Musculoskeletal: no complaints Skin: no complaints Exam/Review of Systems Vital Signs Vitals Vital Signs Date Time Temp Pulse Resp B/P Pulse Ox O2 Delivery O2 Flow Rate FiO2 06/16/17 08:04 98.1 69 18 117/66 98 Intake and Output 06/15/17 06/15/17 06/16/17 15:00 23:00 07:00 Intake Total 1320 ml Output Total 1700 ml Balance -380 ml Exam Constitutional: alert, oriented, well developed Respiratory: clear to auscultation, diminished breath sounds Cardiovascular: edema, nl pulses, regular rate and rhythm Gastrointestinal: non-tender, other (surgical abdomen), soft Extremities: normal pulses Neurological: nl mental status Results Result Diagram: 06/16/17 0750 06/16/17 0750 Results 24 hrs Laboratory Tests Test 06/16/17 07:50 White Blood Count 11.6 #H Red Blood Count 4.03 L Hemoglobin 11.6 L Hematocrit 35.6 L Mean Corpuscular Volume 88.3 Mean Corpuscular Hemoglobin 28.8 L Mean Corpuscular Hemoglobin Concent 32.6 Red Cell Distribution Width 13.2 Platelet Count 344 Mean Platelet Volume 8.8 Neutrophils % 83.5 H Lymphocytes % 8.0 L Monocytes % 7.2 Eosinophils % 0.5 Basophils % 0.3 Nucleated Red Blood Cells % 0.0 Neutrophils # 9.7 H Lymphocytes # 0.9 Monocytes # 0.8 Eosinophils # 0.1 Basophils # 0.0 Nucleated Red Blood Cells # 0.0 Sodium Level 139 Potassium Level 4.1 Chloride Level 101 Carbon Dioxide Level 29 Anion Gap 13 Blood Urea Nitrogen 15 Creatinine 1.05 Glucose Level 103 Calcium Level 9.9 Medications Medications Current Medications Ondansetron HCl (Zofran Inj) 4 mg Q6H PRN IV NAUSEA AND/OR VOMITING Last administered on 06/12/17 22:13; Admin Dose 4 MG; Start 06/06/17 at 12:00 Morphine Sulfate 2 MG/HR CONTINUOUS RATE 2... Q4PCA IV ; Start 06/06/17 at 12:00 Potassium Chloride/Dextrose/ Sod Cl 1,000 ml @ 125 mls/hr Q8H IV Last administered on 06/14/17 13:07; Admin Dose 125 MLS/HR; Start 06/06/17 at 11:32 Acetaminophen (Ofirmev 1000mg/ 100ml Iv) 100 ml @ 400 mls/hr Q6H PRN IVPB PAIN Last administered on 06/16/17 11:04; Admin Dose 400 MLS/HR; Start 06/06/17 at 12:00 Naloxone HCl (Narcan) 0.2 mg Q2M PRN IV FOR RESP RATE 8 OR LESS; Start 06/06/17 at 12:30 Lorazepam (Ativan) 0.5 mg Q6H PRN IV ANXIETY Last administered on 06/10/17 19: 53; Admin Dose 0.5 MG; Start 06/06/17 at 17:00 Phenol (Chloraseptic Throat [place]) 2 spray Q2H PRN MT SORE THROAT Last administered on 06/10/17 02:18; Admin Dose 2 SPRAY; Start 06/06/17 at 20:00 Morphine Sulfate (morphine) 2 mg Q1HWA PRN IV PAIN LEVEL 7-10 Last administered on 06/08/17 12:27; Admin Dose 2 MG; Start 06/07/17 at 01:30 Silver Sulfadiazine (Thermazene 1% 25 Gm) 1 applic BID TOP Last administered on 06/16/17 09:35; Admin Dose 1 APPLIC; Start 06/14/17 at 21:00 KERRY RECINOS Jun 16, 2017 14:44
[2017-06-16 15:20] VITALS: BP 121/62; PULSE 79; RESP 16
[2017-06-16] MEDS: ACETAMINOPHEN 325 MG TAB PO PRN ×2 (16:10→21:51)
[2017-06-16 20:44] VITALS: BP 98/57; RESP 20
[2017-06-17] MEDS: D5W-0.45 NACL + KCL 20 MEQ 1,000 ML IV SCH ×4 (03:32→20:00)
[2017-06-17 03:48] VITALS: BP 112/64; RESP 20
[2017-06-17 05:29] LABS: BASOPHIL # 0.1 10^3/ul (0.0-0.1); BASOPHILS % 0.3 % (0.0-2.0); EOSINOPHILS % 0.1 % (0.0-7.0); HEMATOCRIT 33.6 % (42.0-52.0); HEMOGLOBIN 11.2 g/dl (14.0-18.0); LYMPHOCYTES % 5.5 % (15.0-51.0); MEAN CORPUSCULAR HEMOGLOBIN 29.2 pg (29.0-33.0); MEAN CORPUSCULAR HGB CONC 33.3 g/dl (32.0-37.0); MEAN CORPUSCULAR VOLUME 87.5 fl (82.0-101.0); MEAN PLATELET VOLUME 8.8 fl (7.4-10.4); MONOCYTES % 5.6 % (0.0-11.0); NEUTROPHILS % 88.1 % (39.0-77.0); PLATELET COUNT 332 10^3/UL (140-415); RED BLOOD COUNT 3.84 10^6/ul (4.70-6.10); RED CELL DISTRIBUTION WIDTH 13.5 % (11.5-14.5); WHITE BLOOD COUNT 18.2 10^3/ul (4.8-10.8)
[2017-06-17 05:59] LABS: CALCIUM 9.7 mg/dl (8.4-10.2); CREATININE 1.02 mg/dl (0.61-1.24); POTASSIUM 3.7 mmol/L (3.5-5.1)
[2017-06-17 07:57] VITALS: BP 101/60; RESP 17
[2017-06-17] MEDS: SILVER SULFADIAZINE 1% 25 GM CR TOP SCH ×2 (10:09→21:00)
[2017-06-17 12:00] VITALS: BP 106/54; PULSE 82; RESP 17
--- NOTE | 2017-06-17 12:18 | PN ---
Date/Time of Note Date/Time of Note DATE: 06/17/17 TIME: 12:17 Assessment/Plan VTE Prophylaxis VTE Prophylaxis Intervention: other Lines/Catheters IV Catheter Type (from Nrsg): Saline Lock Urinary Cath still in place: No Assessment/Plan Chief Complaint/Hosp Course - Febrile condition- sp post op- Resolved - Tylenol, cooling measures - per surgery - On VANCO, Zosyn - cont to monitor - status post low anterior colon resection. - per surgery - pain control - IVF -- Sigmoid colon cancer Problems: Subjective 24 Hr Interval Summary Free Text/Dictation Patient has no complaints Exam/Review of Systems Vital Signs Vitals Vital Signs Date Time Temp Pulse Resp B/P Pulse Ox O2 Delivery O2 Flow Rate FiO2 06/17/17 07:57 99.0 84 17 101/60 100 Intake and Output 06/16/17 06/16/17 06/17/17 15:00 23:00 07:00 Intake Total 700 ml 700 ml Output Total 900 ml 1400 ml Balance -200 ml -700 ml Exam Constitutional: well developed Head: atraumatic, normocephalic Neck: supple Respiratory: clear to auscultation Cardiovascular: regular rate and rhythm Gastrointestinal: non-tender, soft Extremities: normal pulses Results Result Diagram: 06/17/17 0455 06/17/17 0455 Results 24 hrs Laboratory Tests Test 06/17/17 04:55 White Blood Count 18.2 #H Red Blood Count 3.84 L Hemoglobin 11.2 L Hematocrit 33.6 L Mean Corpuscular Volume 87.5 Mean Corpuscular Hemoglobin 29.2 Mean Corpuscular Hemoglobin Concent 33.3 Red Cell Distribution Width 13.5 Platelet Count 332 Mean Platelet Volume 8.8 Neutrophils % 88.1 H Lymphocytes % 5.5 L Monocytes % 5.6 Eosinophils % 0.1 Basophils % 0.3 Nucleated Red Blood Cells % 0.0 Neutrophils # 16.0 H Lymphocytes # 1.0 Monocytes # 1.0 H Eosinophils # 0.0 Basophils # 0.1 Nucleated Red Blood Cells # 0.0 Sodium Level 137 Potassium Level 3.7 Chloride Level 100 Carbon Dioxide Level 27 Anion Gap 14 Blood Urea Nitrogen 16 Creatinine 1.02 Glucose Level 113 Calcium Level 9.7 Medications Medications Current Medications Ondansetron HCl (Zofran Inj) 4 mg Q6H PRN IV NAUSEA AND/OR VOMITING Last administered on 06/12/17 22:13; Admin Dose 4 MG; Start 06/06/17 at 12:00 Morphine Sulfate 2 MG/HR CONTINUOUS RATE 2... Q4PCA IV ; Start 06/06/17 at 12:00 Potassium Chloride/Dextrose/ Sod Cl (D5-1/2ns + KCl 20 Meq) 1,000 ml @ 125 mls/ hr Q8H IV Last administered on 06/14/17 13:07; Admin Dose 125 MLS/HR; Start at 11:32 Naloxone HCl (Narcan) 0.2 mg Q2M PRN IV FOR RESP RATE 8 OR LESS; Start 06/06/17 at 12:30 Lorazepam (Ativan) 0.5 mg Q6H PRN IV ANXIETY Last administered on 06/10/17 19: 53; Admin Dose 0.5 MG; Start 06/06/17 at 17:00 Phenol (Chloraseptic Throat [place]) 2 spray Q2H PRN MT SORE THROAT Last administered on 06/10/17 02:18; Admin Dose 2 SPRAY; Start 06/06/17 at 20:00 Morphine Sulfate (morphine) 2 mg Q1HWA PRN IV PAIN LEVEL 7-10 Last administered on 06/08/17 12:27; Admin Dose 2 MG; Start 06/07/17 at 01:30 Silver Sulfadiazine (Thermazene 1% 25 Gm) 1 applic BID TOP Last administered on 06/17/17 10:09; Admin Dose 1 APPLIC; Start 06/14/17 at 21:00 Acetaminophen (Tylenol Tab) 650 mg Q6H PRN PO PAIN AND OR ELEVATED TEMP Last administered on 06/16/17 21:51; Admin Dose 650 MG; Start 06/16/17 at 16:00 MELIA DELA CRUZ Jun 17, 2017 12:18
--- NOTE | 2017-06-17 12:32 | CONS ---
Date/Time of Note Date/Time of Note DATE: 06/16/17 TIME: 19:30 Assessment/Plan Assessment/Plan Chief Complaint/Hosp Course - Post-op SIRS with fever and leukocytosis - resolving - Rectal cancer, s/p laparotomy and low anterior colon resection POD# 6 - Normocytic anemia Recommendations: - Consider Continuing Zosyn given CT findings - will discuss imaging with rest of team Problems: Consultation Date/Type/Reason Admit Date/Time Jun 06, 2017 at 05:15 Type of Consultation: Infectious Disease Exam/Review of Systems Vital Signs Vitals Vital Signs Date Time Temp Pulse Resp B/P Pulse Ox O2 Delivery O2 Flow Rate FiO2 06/17/17 07:57 99.0 84 17 101/60 100 Intake and Output 06/16/17 06/16/17 06/17/17 15:00 23:00 07:00 Intake Total 700 ml 700 ml Output Total 900 ml 1400 ml Balance -200 ml -700 ml Exam Constitutional: alert, oriented, well developed Psych: nl mood/affect, no complaints Head: atraumatic, normocephalic Eyes: EOMI, PERRL, nl conjunctiva, nl lids, nl sclera ENMT: nl external ears & nose, nl lips & teeth, nl nasal mucosa & septum Neck: non-tender, supple Respiratory: clear to auscultation, normal air movement Cardiovascular: nl pulses, regular rate and rhythm Gastrointestinal: nl liver, spleen, non-tender, soft Musculoskeletal: nl extremities to inspection, nl gait and stance Results Result Diagram: 06/17/17 0455 06/17/17 0455 Results 24 hrs Laboratory Tests Test 06/17/17 04:55 White Blood Count 18.2 #H Red Blood Count 3.84 L Hemoglobin 11.2 L Hematocrit 33.6 L Mean Corpuscular Volume 87.5 Mean Corpuscular Hemoglobin 29.2 Mean Corpuscular Hemoglobin Concent 33.3 Red Cell Distribution Width 13.5 Platelet Count 332 Mean Platelet Volume 8.8 Neutrophils % 88.1 H Lymphocytes % 5.5 L Monocytes % 5.6 Eosinophils % 0.1 Basophils % 0.3 Nucleated Red Blood Cells % 0.0 Neutrophils # 16.0 H Lymphocytes # 1.0 Monocytes # 1.0 H Eosinophils # 0.0 Basophils # 0.1 Nucleated Red Blood Cells # 0.0 Sodium Level 137 Potassium Level 3.7 Chloride Level 100 Carbon Dioxide Level 27 Anion Gap 14 Blood Urea Nitrogen 16 Creatinine 1.02 Glucose Level 113 Calcium Level 9.7 Medications Medications Current Medications Ondansetron HCl (Zofran Inj) 4 mg Q6H PRN IV NAUSEA AND/OR VOMITING Last administered on 06/12/17 22:13; Admin Dose 4 MG; Start 06/06/17 at 12:00 Morphine Sulfate 2 MG/HR CONTINUOUS RATE 2... Q4PCA IV ; Start 06/06/17 at 12:00 Potassium Chloride/Dextrose/ Sod Cl (D5-1/2ns + KCl 20 Meq) 1,000 ml @ 125 mls/ hr Q8H IV Last administered on 06/14/17 13:07; Admin Dose 125 MLS/HR; Start at 11:32 Naloxone HCl (Narcan) 0.2 mg Q2M PRN IV FOR RESP RATE 8 OR LESS; Start 06/06/17 at 12:30 Lorazepam (Ativan) 0.5 mg Q6H PRN IV ANXIETY Last administered on 06/10/17 19: 53; Admin Dose 0.5 MG; Start 06/06/17 at 17:00 Phenol (Chloraseptic Throat [place]) 2 spray Q2H PRN MT SORE THROAT Last administered on 06/10/17 02:18; Admin Dose 2 SPRAY; Start 06/06/17 at 20:00 Morphine Sulfate (morphine) 2 mg Q1HWA PRN IV PAIN LEVEL 7-10 Last administered on 06/08/17 12:27; Admin Dose 2 MG; Start 06/07/17 at 01:30 Silver Sulfadiazine (Thermazene 1% 25 Gm) 1 applic BID TOP Last administered on 06/17/17 10:09; Admin Dose 1 APPLIC; Start 06/14/17 at 21:00 Acetaminophen 650 mg 650 mg Q6H PRN PO PAIN AND OR ELEVATED TEMP Last administered on 06/16/17 21:51; Admin Dose 650 MG; Start 06/16/17 at 16:00 Piperacillin Sod/ Tazobactam Sod (Zosyn 3.375gm/ 100 ml (Pmx)) 100 ml @ 200 mls /hr Q6 IVPB ; Start 06/17/17 at 12:30 CHARLENE SCHAEFER MD Jun 17, 2017 12:32
[2017-06-17] MEDS: PIPER-TAZO 3.375 GM IV (PMX) 100 ML IVPB SCH ×3 (13:45→23:36)
--- NOTE | 2017-06-17 14:30 | CONS ---
Date/Time of Note Date/Time of Note DATE: 06/17/17 TIME: 13:47 Assessment/Plan Assessment/Plan Additional Assessment/Plan - Post-op SIRS with fever and leukocytosis - reoccurred - Rectal cancer, s/p laparotomy and low anterior colon resection 06/06/2017 - Abdominal incisional wound growing GNR - Large fluid collection with gas bubbles are seen within the lower posterior pelvis and presacral space per CT abd/pelvis on 06/13/2017 - Normocytic anemia Recommendations: - fu w/micro lab to check if patient's sensitivity to Zosyn- called, gone for day, message left. - Monitor closely - restarted on Zosyn - Will try to review CT results with Radiology -- ai radiologist- - ai Ni - repeat CT on Monday - plan for possible percutaneous drain placement - Follow up abdominal wound culture results (Prelim 1+ GNR) GRAM - Continue local wound care Management d/w patient, Dr. Hercules Consultation Date/Type/Reason Admit Date/Time Jun 06, 2017 at 05:15 Initial Consult Date 06/11/17 Type of Consultation: Infectious Disease 24 HR Interval Summary Constitutional: febrile Detailed Summary Respiratory: no complaints Cardiovascular: no complaints Gastrointestinal: pain Genitourinary: no complaints Musculoskeletal: no complaints Exam/Review of Systems Vital Signs Vitals Vital Signs Date Time Temp Pulse Resp B/P Pulse Ox O2 Delivery O2 Flow Rate FiO2 06/17/17 12:00 98.1 82 17 106/54 97 Room Air Intake and Output 06/16/17 06/16/17 06/17/17 15:00 23:00 07:00 Intake Total 700 ml 700 ml Output Total 900 ml 1400 ml Balance -200 ml -700 ml Exam Constitutional: alert, oriented Cardiovascular: nl pulses, regular rate and rhythm Gastrointestinal: soft, tender Musculoskeletal: nl extremities to inspection Results Result Diagram: 06/17/17 0455 06/17/17 0455 Results 24 hrs Laboratory Tests Test 06/17/17 04:55 White Blood Count 18.2 #H Red Blood Count 3.84 L Hemoglobin 11.2 L Hematocrit 33.6 L Mean Corpuscular Volume 87.5 Mean Corpuscular Hemoglobin 29.2 Mean Corpuscular Hemoglobin Concent 33.3 Red Cell Distribution Width 13.5 Platelet Count 332 Mean Platelet Volume 8.8 Neutrophils % 88.1 H Lymphocytes % 5.5 L Monocytes % 5.6 Eosinophils % 0.1 Basophils % 0.3 Nucleated Red Blood Cells % 0.0 Neutrophils # 16.0 H Lymphocytes # 1.0 Monocytes # 1.0 H Eosinophils # 0.0 Basophils # 0.1 Nucleated Red Blood Cells # 0.0 Sodium Level 137 Potassium Level 3.7 Chloride Level 100 Carbon Dioxide Level 27 Anion Gap 14 Blood Urea Nitrogen 16 Creatinine 1.02 Glucose Level 113 Calcium Level 9.7 Medications Medications Current Medications Ondansetron HCl (Zofran Inj) 4 mg Q6H PRN IV NAUSEA AND/OR VOMITING Last administered on 06/12/17 22:13; Admin Dose 4 MG; Start 06/06/17 at 12:00 Morphine Sulfate 2 MG/HR CONTINUOUS RATE 2... Q4PCA IV ; Start 06/06/17 at 12:00 Potassium Chloride/Dextrose/ Sod Cl (D5-1/2ns + KCl 20 Meq) 1,000 ml @ 125 mls/ hr Q8H IV Last administered on 06/14/17 13:07; Admin Dose 125 MLS/HR; Start at 11:32 Naloxone HCl (Narcan) 0.2 mg Q2M PRN IV FOR RESP RATE 8 OR LESS; Start 06/06/17 at 12:30 Lorazepam (Ativan) 0.5 mg Q6H PRN IV ANXIETY Last administered on 06/10/17 19: 53; Admin Dose 0.5 MG; Start 06/06/17 at 17:00 Phenol (Chloraseptic Throat [place]) 2 spray Q2H PRN MT SORE THROAT Last administered on 06/10/17 02:18; Admin Dose 2 SPRAY; Start 06/06/17 at 20:00 Morphine Sulfate (morphine) 2 mg Q1HWA PRN IV PAIN LEVEL 7-10 Last administered on 06/08/17 12:27; Admin Dose 2 MG; Start 06/07/17 at 01:30 Silver Sulfadiazine (Thermazene 1% 25 Gm) 1 applic BID TOP Last administered on 06/17/17 10:09; Admin Dose 1 APPLIC; Start 06/14/17 at 21:00 Acetaminophen 650 mg 650 mg Q6H PRN PO PAIN AND OR ELEVATED TEMP Last administered on 06/16/17 21:51; Admin Dose 650 MG; Start 06/16/17 at 16:00 Piperacillin Sod/ Tazobactam Sod (Zosyn 3.375gm/ 100 ml (Pmx)) 100 ml @ 200 mls /hr Q6 IVPB ; Start 06/17/17 at 12:30 Procedures Procedures STAIN Final POLYMORPH. LEUKOCYTE RARE EPITHELIAL CELLS RARE GRAM NEGATIVE RODS RARE WOUND CULTURE Final Organism 1 ESCHERICHIA COLI QUANTITY 1+ E COLI M.I.C. RX --------- --- AMPICILLIN >=32 R CEFAZOLIN R CEFOTAXIME S CIPROFLOXACIN <=0.25 S GENTAMICIN <=1 S LEVOFLOXACIN <=0.12 S TOBRAMYCIN <=1 S TRIMETHOPRIM/SULFAMETHOXAZOLE >=320 R KERRY RECINOS Jun 17, 2017 14:00
[2017-06-17 16:50] VITALS: BP 94/50; PULSE 82; RESP 16
[2017-06-17] MEDS: ACETAMINOPHEN 325 MG TAB PO PRN ×2 (17:13→22:39)
--- NOTE | 2017-06-17 17:19 | PN ---
Date/Time of Note Date/Time of Note DATE: 06/17/17 TIME: 17:01 Assessment/Plan VTE Prophylaxis VTE Prophylaxis Intervention: ambulation, SCD's Lines/Catheters IV [facility] Urinary Cath still in place: No Assessment/Plan Assessment/Plan 57 years old male postop day #11. Status post laparotomy low anterior resection of the cancer of the rectosigmoid junction and end-to-end anastomosis with staplers. Operation was done on June 06. June 13 for starting patient on regular diet. A CT scan of the abdomen and pelvis with oral contrast to make sure of the integrity of the anastomosis, unexpectedly which showed large fluid collection presacral area with some air bubbles radiologist Dr. Rivers mentioned that the contrast is going through the remaining of the rectosigmoid and there is no sign of leakage. But abscess in the pelvis was supposed to be a consideration since the patient did not have any fever and also no leukocytosis therefore Dr. Aguirre in the assumed that this is a postop fluid collection present possible seroma. Then the patient started on regular diet and since the patient has been on antibiotic I stopped the antibiotic 2 days ago for discharging the patient to see if there is any problem in the pelvis which may show up itself like increased temperature and increased WBC. Fortunately as of last night patient started running fever and today had more fever and WBC increased to 14,800. Also patient experienced some lower abdominal pain today but is not complaining of pain anymore. Therefore presence of a possible abscess in the pelvis is something that we are considering for the cause of the fever and leukocytosis. Dr. Metzger the infectious disease resourcing consultant started patient on Zosyn today. I am going to start the patient on clear liquid and stop regular diet. We will repeat the CT scan of the pelvis with IV and oral contrast on Monday to evaluate the presence of possible abscess in the pelvis. The mother was discussed with the patient and his in detail. Subjective 24 Hr Interval Summary Free Text/Dictation Today morning has experienced lower abdominal pain shooting in nature. Last night has had episode of temperature 101 today temperature saad up to 100.9 heart rate 82. also has experienced some chills. Dr. Metzger started patient on Zosyn today at around noon. No nausea no vomiting. No urinary symptomatology. Exam/Review of Systems Vital Signs Vitals Vital Signs Date Time Temp Pulse Resp B/P Pulse Ox O2 Delivery O2 Flow Rate FiO2 06/17/17 16:50 100.9 82 16 94/50 96 Room Air Intake and Output 06/16/17 06/16/17 06/17/17 15:00 23:00 07:00 Intake Total 700 ml 700 ml Output Total 900 ml 1400 ml Balance -200 ml -700 ml Exam Right now alert awake oriented 3. Denies abdominal pain at this time. Vital signs right now temperature 100.9. Blood pressure 94/50. Heart rate 82 regular. Saturation 97% room air respiratory rate 17. Today WBC increased to 14,800 yesterday was 8200. Differential is 89% neutrophils. Chemistry is within normal limits today. Physical examination heart regular lungs clear to auscultation. Heart bowel sounds present normal almost. Question of mild tenderness to deep pressure in the right lower quadrant and left lower quadrant. Lower extremities no pitting edema. There is no calf tenderness. Homans sign is negative. Abdominal wall the previously mentioned small subcutaneous infection in the upper part of the incision is almost clear now. Results Result Diagram: 06/17/17 0455 06/17/17 0455 Results 24 hrs Laboratory Tests Test 06/17/17 04:55 White Blood Count 18.2 #H Red Blood Count 3.84 L Hemoglobin 11.2 L Hematocrit 33.6 L Mean Corpuscular Volume 87.5 Mean Corpuscular Hemoglobin 29.2 Mean Corpuscular Hemoglobin Concent 33.3 Red Cell Distribution Width 13.5 Platelet Count 332 Mean Platelet Volume 8.8 Neutrophils % 88.1 H Lymphocytes % 5.5 L Monocytes % 5.6 Eosinophils % 0.1 Basophils % 0.3 Nucleated Red Blood Cells % 0.0 Neutrophils # 16.0 H Lymphocytes # 1.0 Monocytes # 1.0 H Eosinophils # 0.0 Basophils # 0.1 Nucleated Red Blood Cells # 0.0 Sodium Level 137 Potassium Level 3.7 Chloride Level 100 Carbon Dioxide Level 27 Anion Gap 14 Blood Urea Nitrogen 16 Creatinine 1.02 Glucose Level 113 Calcium Level 9.7 Medications Medications Current Medications Ondansetron HCl (Zofran Inj) 4 mg Q6H PRN IV NAUSEA AND/OR VOMITING Last administered on 06/12/17t 22:13; Admin Dose 4 MG; Start 06/06/17 at 12:00 Morphine Sulfate 2 MG/HR CONTINUOUS RATE 2... Q4PCA IV ; Start 06/06/17 at 12:00 Potassium Chloride/Dextrose/ Sod Cl (D5-1/2ns + KCl 20 Meq) 1,000 ml @ 125 mls/ hr Q8H IV Last administered on 06/14/17 13:07; Admin Dose 125 MLS/HR; Start at 11:32 Naloxone HCl (Narcan) 0.2 mg Q2M PRN IV FOR RESP RATE 8 OR LESS; Start 06/06/17 at 12:30 Lorazepam (Ativan) 0.5 mg Q6H PRN IV ANXIETY Last administered on 06/10/17 19: 53; Admin Dose 0.5 MG; Start 06/06/17 at 17:00 Phenol (Chloraseptic Throat [place]) 2 spray Q2H PRN MT SORE THROAT Last administered on 06/10/17 02:18; Admin Dose 2 SPRAY; Start 06/06/17 at 20:00 Morphine Sulfate (morphine) 2 mg Q1HWA PRN IV PAIN LEVEL 7-10 Last administered on 06/08/17 12:27; Admin Dose 2 MG; Start 06/07/17 at 01:30 Silver Sulfadiazine (Thermazene 1% 25 Gm) 1 applic BID TOP Last administered on 06/17/17 10:09; Admin Dose 1 APPLIC; Start 06/14/17 at 21:00 Acetaminophen 650 mg 650 mg Q6H PRN PO PAIN AND OR ELEVATED TEMP Last administered on 06/16/17 21:51; Admin Dose 650 MG; Start 06/16/17 at 16:00 Piperacillin Sod/ Tazobactam Sod (Zosyn 3.375gm/ 100 ml (Pmx)) 100 ml @ 200 mls /hr Q6 IVPB Last administered on 06/17/17 13:45; Admin Dose 200 MLS/HR; Start 06/17/17 at 12:30 ISAMAR GODINEZ MD Jun 17, 2017 17:18
--- NOTE | 2017-06-17 18:32 | RADRPT ---
PROCEDURE: XR Chest. CLINICAL INDICATION: Fever. TECHNIQUE: Single frontal view of the chest. COMPARISON: None. FINDINGS: The cardiomediastinal silhouette is within normal limits. Mild atelectasis at the left lung base. Th e lungs are otherwise clear. No signs of pleural fluid or pneumothorax are seen. The osseous structu res and soft tissues are unremarkable. IMPRESSION: Mild atelectasis at the left lung base. RPTAT: [facility] Physician Libra Date Time Electronically viewed and signed by Physician Libra on 06/17/2017 18:31 RS/
[2017-06-17 20:44] VITALS: BP 92/59; RESP 17
[2017-06-18 00:01] VITALS: BP 100/63; PULSE 80; RESP 17
[2017-06-18] MEDS: D5W-0.45 NACL + KCL 20 MEQ 1,000 ML IV SCH ×2 (03:41→17:50)
[2017-06-18 04:00] VITALS: BP 106/62; PULSE 78; RESP 18
[2017-06-18 05:36] LABS: BASOPHILS % 0.1 % (0.0-2.0); EOSINOPHILS # 0.1 10^3/ul (0.0-0.5); EOSINOPHILS % 0.5 % (0.0-7.0); HEMATOCRIT 32.1 % (42.0-52.0); HEMOGLOBIN 10.8 g/dl (14.0-18.0); LYMPHOCYTES # 0.8 10^3/ul (0.8-2.9); LYMPHOCYTES % 5.7 % (15.0-51.0); MEAN CORPUSCULAR HEMOGLOBIN 29.9 pg (29.0-33.0); MEAN CORPUSCULAR HGB CONC 33.6 g/dl (32.0-37.0); MEAN CORPUSCULAR VOLUME 88.9 fl (82.0-101.0); MEAN PLATELET VOLUME 8.8 fl (7.4-10.4); MONOCYTES % 6.8 % (0.0-11.0); NEUTROPHIL # 12.7 10^3/ul (1.6-7.5); NEUTROPHILS % 86.4 % (39.0-77.0); PLATELET COUNT 321 10^3/UL (140-415); RED BLOOD COUNT 3.61 10^6/ul (4.70-6.10); RED CELL DISTRIBUTION WIDTH 13.2 % (11.5-14.5); WHITE BLOOD COUNT 14.7 10^3/ul (4.8-10.8)
[2017-06-18 05:52] LABS: INR 1.17; PT RATIO 1.2
[2017-06-18 05:53] LABS: PARTIAL THROMBOPLASTIN TIME 34.3 Sec (25.0-35.0)
[2017-06-18 06:18] LABS: ADD UMIC YES; UR ASCORBIC ACID NEGATIVE (NEGATIVE); UR BILIRUBIN (Dip) NEGATIVE (NEGATIVE); UR BLOOD (Dip) 1+ mg/dL (NEGATIVE); UR CLARITY CLEAR (CLEAR); UR COLOR YELLOW (YELLOW); UR GLUCOSE (Dip) NEGATIVE (NEGATIVE); UR KETONES (Dip) NEGATIVE (NEGATIVE); UR LEUKOCYTE ESTERASE (Dip) NEGATIVE Leu/ul (NEGATIVE); UR NITRITE (Dip) NEGATIVE (NEGATIVE); UR RBC 1 /HPF (0-5); UR SPECIFIC GRAVITY (Dip) 1.013 (1.003-1.030); UR TOTAL PROTEIN (Dip) NEGATIVE (NEGATIVE); UR UROBILINOGEN (Dip) NEGATIVE (NEGATIVE)
[2017-06-18 06:22] LABS: CALCIUM 9.6 mg/dl (8.4-10.2); CREATININE 1.06 mg/dl (0.61-1.24); POTASSIUM 3.8 mmol/L (3.5-5.1)
[2017-06-18] MEDS: PIPER-TAZO 3.375 GM IV (PMX) 100 ML IVPB SCH ×2 (06:22→12:57)
[2017-06-18] MEDS: SILVER SULFADIAZINE 1% 25 GM CR TOP SCH ×2 (08:24→20:47)
[2017-06-18 08:30] VITALS: BP 99/55; RESP 18
--- NOTE | 2017-06-18 12:29 | PN ---
Date/Time of Note Date/Time of Note DATE: 06/18/17 TIME: 12:28 Assessment/Plan VTE Prophylaxis VTE Prophylaxis Intervention: other Lines/Catheters IV Catheter Type (from Nrs): Saline Lock Urinary Cath still in place: No Assessment/Plan Chief Complaint/Hosp Course - Febrile condition- sp post op- Resolved - Tylenol, cooling measures - per surgery - On VANCO, Zosyn - cont to monitor - status post low anterior colon resection. - per surgery - pain control - IVF -- Sigmoid colon cancer Problems: Subjective 24 Hr Interval Summary Free Text/Dictation Patient denies any complaints Exam/Review of Systems Vital Signs Vitals Vital Signs Date Time Temp Pulse Resp B/P Pulse Ox O2 Delivery O2 Flow Rate FiO2 06/18/17 08:30 98.9 75 18 99/55 95 06/18/17 04:00 Room Air Intake and Output 06/17/17 06/17/17 06/18/17 15:00 23:00 07:00 Intake Total 100 ml 700 ml 1680 ml Output Total 1002 ml 1600 ml Balance 100 ml -302 ml 80 ml Exam Constitutional: well developed Head: atraumatic, normocephalic Neck: supple Respiratory: clear to auscultation Cardiovascular: regular rate and rhythm Gastrointestinal: non-tender, soft Extremities: normal pulses Results Result Diagram: 06/18/17 0425 06/18/17 0425 Results 24 hrs Laboratory Tests Test 06/17/17 19:10 06/18/17 04:25 Urine Color YELLOW Urine Clarity CLEAR Urine pH 5.0 Urine Specific [place] 1.013 Urine Ketones NEGATIVE Urine Nitrite NEGATIVE Urine Bilirubin NEGATIVE Urine Urobilinogen NEGATIVE Urine Leukocyte Esterase NEGATIVE Urine Microscopic RBC 1 Urine Microscopic WBC 1 Urine Hemoglobin 1+ H Urine Glucose NEGATIVE Urine Total Protein NEGATIVE White Blood Count 14.7 H Red Blood Count 3.61 L Hemoglobin 10.8 L Hematocrit 32.1 L Mean Corpuscular Volume 88.9 Mean Corpuscular Hemoglobin 29.9 Mean Corpuscular Hemoglobin Concent 33.6 Red Cell Distribution Width 13.2 Platelet Count 321 Mean Platelet Volume 8.8 Neutrophils % 86.4 H Lymphocytes % 5.7 L Monocytes % 6.8 Eosinophils % 0.5 Basophils % 0.1 Nucleated Red Blood Cells % 0.0 Neutrophils # 12.7 H Lymphocytes # 0.8 Monocytes # 1.0 H Eosinophils # 0.1 Basophils # 0.0 Nucleated Red Blood Cells # 0.0 Prothrombin Time 15.0 H Prothrombin Time Ratio 1.2 INR International Normalized Ratio 1.17 Activated Partial Thromboplast Time 34.3 Sodium Level 137 Potassium Level 3.8 Chloride Level 100 Carbon Dioxide Level 29 Anion Gap 12 Blood Urea Nitrogen 12 Creatinine 1.06 Glucose Level 128 Calcium Level 9.6 Medications Medications Current Medications Ondansetron HCl (Zofran Inj) 4 mg Q6H PRN IV NAUSEA AND/OR VOMITING Last administered on 06/12/17 22:13; Admin Dose 4 MG; Start 06/06/17 at 12:00 Morphine Sulfate 2 MG/HR CONTINUOUS RATE 2... Q4PCA IV ; Start 06/06/17 at 12:00 Potassium Chloride/Dextrose/ Sod Cl (D5-1/2ns + KCl 20 Meq) 1,000 ml @ 100 mls/ hr Q10H IV Last administered on 06/18/17 03:41; Admin Dose 100 MLS/HR; Start 06/06/17 at 11:32 Naloxone HCl (Narcan) 0.2 mg Q2M PRN IV FOR RESP RATE 8 OR LESS; Start 06/06/17 at 12:30 Lorazepam (Ativan) 0.5 mg Q6H PRN IV ANXIETY Last administered on 06/10/17 19: 53; Admin Dose 0.5 MG; Start 06/06/17 at 17:00 Phenol (Chloraseptic Throat [place]) 2 spray Q2H PRN MT SORE THROAT Last administered on 06/10/17 02:18; Admin Dose 2 SPRAY; Start 06/06/17 at 20:00 Morphine Sulfate (morphine) 2 mg Q1HWA PRN IV PAIN LEVEL 7-10 Last administered on 06/08/17 12:27; Admin Dose 2 MG; Start 06/07/17 at 01:30 Silver Sulfadiazine (Thermazene 1% 25 Gm) 1 applic BID TOP Last administered on 06/18/17 08:24; Admin Dose 1 APPLIC; Start 06/14/17 at 21:00 Acetaminophen 650 mg 650 mg Q6H PRN PO PAIN AND OR ELEVATED TEMP Last administered on 06/17/17 22:39; Admin Dose 650 MG; Start 06/16/17 at 16:00 Piperacillin Sod/ Tazobactam Sod (Zosyn 3.375gm/ 100 ml (Pmx)) 100 ml @ 200 mls /hr Q6 IVPB Last administered on 06/18/17t 06:22; Admin Dose 200 MLS/HR; Start 06/17/17 at 12:30 MELIA DELA CRUZ Jun 18, 2017 12:29
--- NOTE | 2017-06-18 13:28 | PN ---
Date/Time of Note Date/Time of Note DATE: 06/18/17 TIME: 13:21 Assessment/Plan VTE Prophylaxis VTE Prophylaxis Intervention: SCD's Lines/Catheters IV [facility] Saline Lock Urinary Cath still in place: No Assessment/Plan Assessment/Plan - Post-op SIRS with fever and leukocytosis - possible abscess per CT - Zosyn dCD - start on Levaquin and Flagyl - blood c/s- pending - Zosyn dcd - - Rectal cancer, s/p laparotomy and low anterior colon resection 06/06/2017 - Abdominal incisional wound growing GNR - Large fluid collection with gas bubbles are seen within the lower posterior pelvis and presacral space per CT abd/pelvis on 06/13/2017 - Normocytic anemia Recommendations: - fu w/micro lab to check if patient's sensitivity to Zosyn- called- pt is resistant to Zosyn - Monitor closely - dcd Zosyn - Will try to review CT results with Radiology -- blaine radiologist- - blaine Ni - repeat CT on Monday - plan for possible percutaneous drain placement - Follow up abdominal wound culture results (Prelim 1+ GNR) GRAM STAIN Final POLYMORPH. LEUKOCYTE RARE EPITHELIAL CELLS RARE GRAM NEGATIVE RODS RARE WOUND CULTURE Final Organism 1 ESCHERICHIA COLI QUANTITY 1+ E COLI M.I.C. RX --------- --- AMPICILLIN >=32 R CEFAZOLIN R CEFOTAXIME S CIPROFLOXACIN <=0.25 S GENTAMICIN <=1 S LEVOFLOXACIN <=0.12 S TOBRAMYCIN <=1 S TRIMETHOPRIM/SULFAMETHOXAZOLE >=320 R Zosyn R Blaine Hercules Subjective 24 Hr Interval Summary Free Text/Dictation C/o abdominal pain, CT showed possible abscess in pelvis- Blaine Ni- possible plan for placement of percutaneous drain. Called to Microbiology lab and patient is resistant to Zosyn. blaine staff Constitutional: febrile ENT: no complaints Respiratory: no complaints Gastrointestinal: pain Genitourinary: no complaints Musculoskeletal: no complaints Skin: no complaints Neurologic: no complaints Exam/Review of Systems Vital Signs Vitals Vital Signs Date Time Temp Pulse Resp B/P Pulse Ox O2 Delivery O2 Flow Rate FiO2 06/18/17 08:30 98.9 75 18 99/55 95 06/18/17 04:00 Room Air Intake and Output 06/17/17 06/17/17 06/18/17 15:00 23:00 07:00 Intake Total 100 ml 700 ml 1680 ml Output Total 1002 ml 1600 ml Balance 100 ml -302 ml 80 ml Exam Constitutional: alert, oriented, well developed Respiratory: clear to auscultation, normal air movement Cardiovascular: nl pulses, regular rate and rhythm Gastrointestinal: soft, tender Musculoskeletal: nl extremities to inspection Extremities: normal pulses Neurological: nl mental status, nl speech Results Result Diagram: 06/18/17 0425 06/18/17 0425 Results 24 hrs Laboratory Tests Test 06/17/17 19:10 06/18/17 04:25 Urine Color YELLOW Urine Clarity CLEAR Urine pH 5.0 Urine Specific [place] 1.013 Urine Ketones NEGATIVE Urine Nitrite NEGATIVE Urine Bilirubin NEGATIVE Urine Urobilinogen NEGATIVE Urine Leukocyte Esterase NEGATIVE Urine Microscopic RBC 1 Urine Microscopic WBC 1 Urine Hemoglobin 1+ H Urine Glucose NEGATIVE Urine Total Protein NEGATIVE White Blood Count 14.7 H Red Blood Count 3.61 L Hemoglobin 10.8 L Hematocrit 32.1 L Mean Corpuscular Volume 88.9 Mean Corpuscular Hemoglobin 29.9 Mean Corpuscular Hemoglobin Concent 33.6 Red Cell Distribution Width 13.2 Platelet Count 321 Mean Platelet Volume 8.8 Neutrophils % 86.4 H Lymphocytes % 5.7 L Monocytes % 6.8 Eosinophils % 0.5 Basophils % 0.1 Nucleated Red Blood Cells % 0.0 Neutrophils # 12.7 H Lymphocytes # 0.8 Monocytes # 1.0 H Eosinophils # 0.1 Basophils # 0.0 Nucleated Red Blood Cells # 0.0 Prothrombin Time 15.0 H Prothrombin Time Ratio 1.2 INR International Normalized Ratio 1.17 Activated Partial Thromboplast Time 34.3 Sodium Level 137 Potassium Level 3.8 Chloride Level 100 Carbon Dioxide Level 29 Anion Gap 12 Blood Urea Nitrogen 12 Creatinine 1.06 Glucose Level 128 Calcium Level 9.6 Medications Medications Current Medications Ondansetron HCl (Zofran Inj) 4 mg Q6H PRN IV NAUSEA AND/OR VOMITING Last administered on 06/12/17t 22:13; Admin Dose 4 MG; Start 06/06/17 at 12:00 Morphine Sulfate 2 MG/HR CONTINUOUS RATE 2... Q4PCA IV ; Start 06/06/17 at 12:00 Potassium Chloride/Dextrose/ Sod Cl (D5-1/2ns + KCl 20 Meq) 1,000 ml @ 100 mls/ hr Q10H IV Last administered on 06/18/17 03:41; Admin Dose 100 MLS/HR; Start 06/06/17 at 11:32 Naloxone HCl (Narcan) 0.2 mg Q2M PRN IV FOR RESP RATE 8 OR LESS; Start 06/06/17 at 12:30 Lorazepam (Ativan) 0.5 mg Q6H PRN IV ANXIETY Last administered on 06/10/17 19: 53; Admin Dose 0.5 MG; Start 06/06/17 at 17:00 Phenol (Chloraseptic Throat [place]) 2 spray Q2H PRN MT SORE THROAT Last administered on 06/10/17 02:18; Admin Dose 2 SPRAY; Start 06/06/17 at 20:00 Morphine Sulfate (morphine) 2 mg Q1HWA PRN IV PAIN LEVEL 7-10 Last administered on 06/08/17 12:27; Admin Dose 2 MG; Start 06/07/17 at 01:30 Silver Sulfadiazine (Thermazene 1% 25 Gm) 1 applic BID TOP Last administered on 06/18/17 08:24; Admin Dose 1 APPLIC; Start 06/14/17 at 21:00 Acetaminophen 650 mg 650 mg Q6H PRN PO PAIN AND OR ELEVATED TEMP Last administered on 06/17/17 22:39; Admin Dose 650 MG; Start 06/16/17 at 16:00 Piperacillin Sod/ Tazobactam Sod (Zosyn 3.375gm/ 100 ml (Pmx)) 100 ml @ 200 mls /hr Q6 IVPB Last administered on 06/18/17 12:57; Admin Dose 200 MLS/HR; Start 06/17/17 at 12:30 KERRY RECINOS Jun 18, 2017 13:28
[2017-06-18] MEDS ORDERED: LEVOFLOXACIN 750 MG TABLET PO ONE ×2 (13:30→14:00)
[2017-06-18] MEDS ORDERED: metroNIDAZOLE 500 MG/NS (PMX) 100 ML IVPB ONE (13:30)
--- NOTE | 2017-06-18 13:32 | PN ---
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 2 days ago when we have stopped antibiotic patient started running fever and increased leukocytosis so the patient was started back on Zosyn. Because of fever and leukocytosis probably is fluid accumulation in the pelvis presacral which was seen on CT scan several days ago. But there was no concrete evidence of anastomosis leakage. Continue antibiotics Zosyn, keep the patient on clear liquids, repeat CT scan of the pelvis with IV and oral contrast tomorrow. Subjective 24 Hr Interval Summary Free Text/Dictation Today feels better. No nausea no vomiting. Her abdominal pain is much better but only hurts when he walks around the floor. Has had a couple of bowel movement which is per patient liquids or mucus. No fever since last night. Exam/Review of Systems Vital Signs Vitals Vital Signs Date Time Temp Pulse Resp B/P Pulse Ox O2 Delivery O2 Flow Rate FiO2 06/18/17 08:30 98.9 75 18 99/55 95 06/18/17 04:00 Room Air Intake and Output 06/17/17 06/17/17 06/18/17 15:00 23:00 07:00 Intake Total 100 ml 700 ml 1680 ml Output Total 1002 ml 1600 ml Balance 100 ml -302 ml 80 ml Exam Postop day #10. Temperature maximum today 98.9. Heart rate 75 regular WBC dropped dropped to 14,700 with 86% segmented yesterday was 18,200. Alert awake oriented 3. Heart regular lungs clear. May be mildly distended with gas. Mild tenderness on both lower quadrant on deep pressure. Legs no calf tenderness. Results Result Diagram: 06/18/17 0425 06/18/17 0425 Results 24 hrs Laboratory Tests Test 06/17/17 19:10 06/18/17 04:25 Urine Color YELLOW Urine Clarity CLEAR Urine pH 5.0 Urine Specific [place] 1.013 Urine Ketones NEGATIVE Urine Nitrite NEGATIVE Urine Bilirubin NEGATIVE Urine Urobilinogen NEGATIVE Urine Leukocyte Esterase NEGATIVE Urine Microscopic RBC 1 Urine Microscopic WBC 1 Urine Hemoglobin 1+ H Urine Glucose NEGATIVE Urine Total Protein NEGATIVE White Blood Count 14.7 H Red Blood Count 3.61 L Hemoglobin 10.8 L Hematocrit 32.1 L Mean Corpuscular Volume 88.9 Mean Corpuscular Hemoglobin 29.9 Mean Corpuscular Hemoglobin Concent 33.6 Red Cell Distribution Width 13.2 Platelet Count 321 Mean Platelet Volume 8.8 Neutrophils % 86.4 H Lymphocytes % 5.7 L Monocytes % 6.8 Eosinophils % 0.5 Basophils % 0.1 Nucleated Red Blood Cells % 0.0 Neutrophils # 12.7 H Lymphocytes # 0.8 Monocytes # 1.0 H Eosinophils # 0.1 Basophils # 0.0 Nucleated Red Blood Cells # 0.0 Prothrombin Time 15.0 H Prothrombin Time Ratio 1.2 INR International Normalized Ratio 1.17 Activated Partial Thromboplast Time 34.3 Sodium Level 137 Potassium Level 3.8 Chloride Level 100 Carbon Dioxide Level 29 Anion Gap 12 Blood Urea Nitrogen 12 Creatinine 1.06 Glucose Level 128 Calcium Level 9.6 Medications Medications Current Medications Ondansetron HCl (Zofran Inj) 4 mg Q6H PRN IV NAUSEA AND/OR VOMITING Last administered on 06/12/17 22:13; Admin Dose 4 MG; Start 06/06/17 at 12:00 Morphine Sulfate 2 MG/HR CONTINUOUS RATE 2... Q4PCA IV ; Start 06/06/17 at 12:00 Potassium Chloride/Dextrose/ Sod Cl (D5-1/2ns + KCl 20 Meq) 1,000 ml @ 100 mls/ hr Q10H IV Last administered on 06/18/17 03:41; Admin Dose 100 MLS/HR; Start 06/06/17 at 11:32 Naloxone HCl (Narcan) 0.2 mg Q2M PRN IV FOR RESP RATE 8 OR LESS; Start 06/06/17 at 12:30 Lorazepam (Ativan) 0.5 mg Q6H PRN IV ANXIETY Last administered on 06/10/17 19: 53; Admin Dose 0.5 MG; Start 06/06/17 at 17:00 Phenol (Chloraseptic Throat [place]) 2 spray Q2H PRN MT SORE THROAT Last administered on 06/10/17 02:18; Admin Dose 2 SPRAY; Start 06/06/17 at 20:00 Morphine Sulfate (morphine) 2 mg Q1HWA PRN IV PAIN LEVEL 7-10 Last administered on 06/08/17 12:27; Admin Dose 2 MG; Start 06/07/17 at 01:30 Silver Sulfadiazine (Thermazene 1% 25 Gm) 1 applic BID TOP Last administered on 06/18/17 08:24; Admin Dose 1 APPLIC; Start 06/14/17 at 21:00 Acetaminophen 650 mg 650 mg Q6H PRN PO PAIN AND OR ELEVATED TEMP Last administered on 06/17/17 22:39; Admin Dose 650 MG; Start 06/16/17 at 16:00 Piperacillin Sod/ Tazobactam Sod (Zosyn 3.375gm/ 100 ml (Pmx)) 100 ml @ 200 mls /hr Q6 IVPB Last administered on 06/18/17 12:57; Admin Dose 200 MLS/HR; Start 06/17/17 at 12:30 ISAMAR GODINEZ MD Jun 18, 2017 13:32
[2017-06-18] MEDS ORDERED: IOHEXOL 14.3 MG(I)/ML (ADULT) BTL PO ONE (14:00)
[2017-06-18] MEDS: LEVOFLOXACIN 750MG/D5W (PMX) 150 ML IVPB SCH (15:22)
[2017-06-18 15:25] VITALS: BP 94/50; PULSE 71; RESP 16
[2017-06-18 16:30] VITALS: BP 102/63; RESP 18
[2017-06-18] MEDS: metroNIDAZOLE 500 MG/NS (PMX) 100 ML IVPB SCH (18:46)
[2017-06-18 20:31] VITALS: BP 110/59; RESP 18
[2017-06-19] MEDS: metroNIDAZOLE 500 MG/NS (PMX) 100 ML IVPB SCH ×5 (00:01→23:56)
[2017-06-19 01:49] VITALS: BP 105/62; RESP 18
[2017-06-19] MEDS: D5W-0.45 NACL + KCL 20 MEQ 1,000 ML IV SCH ×3 (02:00→21:31)
[2017-06-19 05:59] LABS: BASOPHILS % 0.3 % (0.0-2.0); EOSINOPHILS # 0.1 10^3/ul (0.0-0.5); EOSINOPHILS % 0.9 % (0.0-7.0); HEMATOCRIT 32.1 % (42.0-52.0); HEMOGLOBIN 10.4 g/dl (14.0-18.0); LYMPHOCYTES # 1.3 10^3/ul (0.8-2.9); LYMPHOCYTES % 11.1 % (15.0-51.0); MEAN CORPUSCULAR HEMOGLOBIN 28.7 pg (29.0-33.0); MEAN CORPUSCULAR HGB CONC 32.4 g/dl (32.0-37.0); MEAN CORPUSCULAR VOLUME 88.7 fl (82.0-101.0); MEAN PLATELET VOLUME 8.9 fl (7.4-10.4); MONOCYTE # 0.9 10^3/ul (0.3-0.9); MONOCYTES % 7.7 % (0.0-11.0); NEUTROPHILS % 79.5 % (39.0-77.0); PLATELET COUNT 343 10^3/UL (140-415); RED BLOOD COUNT 3.62 10^6/ul (4.70-6.10); RED CELL DISTRIBUTION WIDTH 13.4 % (11.5-14.5); WHITE BLOOD COUNT 11.4 10^3/ul (4.8-10.8)
[2017-06-19] MEDS ORDERED: LEVOFLOXACIN 750 MG TABLET PO SCH (06:00)
[2017-06-19 07:54] VITALS: BP 100/62; RESP 19
[2017-06-19] MEDS: SILVER SULFADIAZINE 1% 25 GM CR TOP SCH ×2 (10:18→21:31)
--- NOTE | 2017-06-19 11:34 | CONS ---
Date/Time of Note Date/Time of Note DATE: 06/19/17 TIME: 11:33 Assessment/Plan Assessment/Plan Chief Complaint/Hosp Course - Post-op SIRS with fever and leukocytosis - possible abscess per CT - Zosyn dCD - start on Levaquin and Flagyl - blood c/s- pending - Zosyn dcd - - Rectal cancer, s/p laparotomy and low anterior colon resection 06/06/2017 - Abdominal incisional wound growing GNR - Large fluid collection with gas bubbles are seen within the lower posterior pelvis and presacral space per CT abd/pelvis on 06/13/2017 - Normocytic anemia Recommendations: - CT guided drainge--please send for aerobic/anaerobic cxs - cont. Levaquin/flagyl Problems: Consultation Date/Type/Reason Admit Date/Time Jun 06, 2017 at 05:15 Type of Consultation: Infectious Disease 24 HR Interval Summary Free Text/Dictation scheduled for CT guided drainage Exam/Review of Systems Vital Signs Vitals Vital Signs Date Time Temp Pulse Resp B/P Pulse Ox O2 Delivery O2 Flow Rate FiO2 06/19/17 07:54 98.0 71 19 100/62 99 06/18/17 15:25 Room Air Intake and Output 06/18/17 06/18/17 06/19/17 15:00 23:00 07:00 Intake Total 100 ml 2110 ml 1700 ml Output Total 1400 ml 1500 ml Balance 100 ml 710 ml 200 ml Exam Constitutional: alert, oriented, well developed Psych: nl mood/affect, no complaints Eyes: EOMI, PERRL, nl conjunctiva, nl lids, nl sclera Respiratory: clear to auscultation, normal air movement Cardiovascular: nl pulses, regular rate and rhythm Gastrointestinal: nl liver, spleen, non-tender, soft Results Result Diagram: 06/19/17 0505 06/18/17 0425 Results 24 hrs Laboratory Tests Test 06/19/17 05:05 White Blood Count 11.4 #H Red Blood Count 3.62 L Hemoglobin 10.4 L Hematocrit 32.1 L Mean Corpuscular Volume 88.7 Mean Corpuscular Hemoglobin 28.7 L Mean Corpuscular Hemoglobin Concent 32.4 Red Cell Distribution Width 13.4 Platelet Count 343 Mean Platelet Volume 8.9 Neutrophils % 79.5 H Lymphocytes % 11.1 L Monocytes % 7.7 Eosinophils % 0.9 Basophils % 0.3 Nucleated Red Blood Cells % 0.0 Neutrophils # 9.0 H Lymphocytes # 1.3 Monocytes # 0.9 Eosinophils # 0.1 Basophils # 0.0 Nucleated Red Blood Cells # 0.0 Medications Medications Current Medications Ondansetron HCl (Zofran Inj) 4 mg Q6H PRN IV NAUSEA AND/OR VOMITING Last administered on 06/12/17 22:13; Admin Dose 4 MG; Start 06/06/17 at 12:00 Morphine Sulfate 2 MG/HR CONTINUOUS RATE 2... Q4PCA IV ; Start 06/06/17 at 12:00 Potassium Chloride/Dextrose/ Sod Cl (D5-1/2ns + KCl 20 Meq) 1,000 ml @ 100 mls/ hr Q10H IV Last administered on 06/19/17 05:44; Admin Dose 100 MLS/HR; Start 06/06/17 at 11:32 Naloxone HCl (Narcan) 0.2 mg Q2M PRN IV FOR RESP RATE 8 OR LESS; Start 06/06/17 at 12:30 Lorazepam (Ativan) 0.5 mg Q6H PRN IV ANXIETY Last administered on 06/10/17 19: 53; Admin Dose 0.5 MG; Start 06/06/17 at 17:00 Phenol (Chloraseptic Throat [place]) 2 spray Q2H PRN MT SORE THROAT Last administered on 06/10/17 02:18; Admin Dose 2 SPRAY; Start 06/06/17 at 20:00 Morphine Sulfate (morphine) 2 mg Q1HWA PRN IV PAIN LEVEL 7-10 Last administered on 06/08/17 12:27; Admin Dose 2 MG; Start 06/07/17 at 01:30 Silver Sulfadiazine (Thermazene 1% 25 Gm) 1 applic BID TOP Last administered on 06/19/17 10:18; Admin Dose 1 APPLIC; Start 06/14/17 at 21:00 Acetaminophen 650 mg 650 mg Q6H PRN PO PAIN AND OR ELEVATED TEMP Last administered on 06/17/17 22:39; Admin Dose 650 MG; Start 06/16/17 at 16:00 Metronidazole 100 ml @ 100 mls/hr Q6 IVPB Last administered on 06/19/17 05:45 ; Admin Dose 100 MLS/HR; Start 06/18/17 at 18:00 Levofloxacin/ Dextrose (Levaquin 750 Mg/ D5W 150 ml (Pmx)) 150 ml @ 100 mls/hr Q24H IVPB Last administered on 06/18/17t 15:22; Admin Dose 100 MLS/HR; Start at 14:00 CHARLENE SCHAEFER MD Jun 19, 2017 11:34
[2017-06-19] MEDS: LEVOFLOXACIN 750MG/D5W (PMX) 150 ML IVPB SCH (13:26)
--- NOTE | 2017-06-19 15:26 | PN ---
Date/Time of Note Date/Time of Note DATE: 06/19/17 TIME: 15:20 Assessment/Plan VTE Prophylaxis VTE Prophylaxis Intervention: ambulation Lines/Catheters IV [facility]ter Type (from [facility]): Peripheral IV Urinary Cath still in place: No Assessment/Plan Assessment/Plan We are getting a CT scan of the abdomen and pelvis with oral and IV contrast of the patient today. Depending on the results of the CT scan further decision will be made. Meanwhile continue patient on Flagyl and levofloxacin. The status of the patient was discussed with Dr. Aguirre the surgeon. Subjective 24 Hr Interval Summary Free Text/Dictation Feels better no nausea no vomiting no abdominal pain no diarrhea small amount of bowel movement in the form of mucus per patient. No fever Exam/Review of Systems Vital Signs Vitals Vital Signs Date Time Temp Pulse Resp B/P Pulse Ox O2 Delivery O2 Flow Rate FiO2 06/19/17 07:54 98.0 71 19 100/62 99 06/18/17 15:25 Room Air Intake and Output 06/18/17 06/18/17 06/19/17 15:00 23:00 07:00 Intake Total 100 ml 2110 ml 1700 ml Output Total 1400 ml 1500 ml Balance 100 ml 710 ml 200 ml Exam Patient is alert awake oriented 3 laying down in the bed drinking the Gastrografin to have the CT scan today. Vital signs temperature 98.2 heart rate 75 respiration 19 blood pressure 100/62 saturation 99% room air. WBC decreased to 11,400, 79% segmented. Urine culture and blood cultures so far negative Heart regular lungs clear abdomen soft no tenderness. Legs no calf tenderness. Sections disease neuropsychology medical consultant today started the patient on Flagyl 500 mg IV every 6 hours and levofloxacin 750 mg per 24 hour. Results Result Diagram: 06/19/17 0505 06/18/17 0425 Results 24 hrs Laboratory Tests Test 06/19/17 05:05 White Blood Count 11.4 #H Red Blood Count 3.62 L Hemoglobin 10.4 L Hematocrit 32.1 L Mean Corpuscular Volume 88.7 Mean Corpuscular Hemoglobin 28.7 L Mean Corpuscular Hemoglobin Concent 32.4 Red Cell Distribution Width 13.4 Platelet Count 343 Mean Platelet Volume 8.9 Neutrophils % 79.5 H Lymphocytes % 11.1 L Monocytes % 7.7 Eosinophils % 0.9 Basophils % 0.3 Nucleated Red Blood Cells % 0.0 Neutrophils # 9.0 H Lymphocytes # 1.3 Monocytes # 0.9 Eosinophils # 0.1 Basophils # 0.0 Nucleated Red Blood Cells # 0.0 Medications Medications Current Medications Ondansetron HCl (Zofran Inj) 4 mg Q6H PRN IV NAUSEA AND/OR VOMITING Last administered on 06/12/17 22:13; Admin Dose 4 MG; Start 06/06/17 at 12:00 Morphine Sulfate 2 MG/HR CONTINUOUS RATE 2... Q4PCA IV ; Start 06/06/17 at 12:00 Potassium Chloride/Dextrose/ Sod Cl (D5-1/2ns + KCl 20 Meq) 1,000 ml @ 100 mls/ hr Q10H IV Last administered on 06/19/17 05:44; Admin Dose 100 MLS/HR; Start 06/06/17 at 11:32 Naloxone HCl (Narcan) 0.2 mg Q2M PRN IV FOR RESP RATE 8 OR LESS; Start 06/06/17 at 12:30 Lorazepam (Ativan) 0.5 mg Q6H PRN IV ANXIETY Last administered on 06/10/17 19: 53; Admin Dose 0.5 MG; Start 06/06/17 at 17:00 Phenol (Chloraseptic Throat [place]) 2 spray Q2H PRN MT SORE THROAT Last administered on 06/10/17 02:18; Admin Dose 2 SPRAY; Start 06/06/17 at 20:00 Morphine Sulfate (morphine) 2 mg Q1HWA PRN IV PAIN LEVEL 7-10 Last administered on 06/08/17 12:27; Admin Dose 2 MG; Start 06/07/17 at 01:30 Silver Sulfadiazine (Thermazene 1% 25 Gm) 1 applic BID TOP Last administered on 06/19/17 10:18; Admin Dose 1 APPLIC; Start 06/14/17 at 21:00 Acetaminophen 650 mg 650 mg Q6H PRN PO PAIN AND OR ELEVATED TEMP Last administered on 06/17/17 22:39; Admin Dose 650 MG; Start 06/16/17 at 16:00 Metronidazole 100 ml @ 100 mls/hr Q6 IVPB Last administered on 06/19/17 12:17 ; Admin Dose 100 MLS/HR; Start 06/18/17 at 18:00 Levofloxacin/ Dextrose (Levaquin 750 Mg/ D5W 150 ml (Pmx)) 150 ml @ 100 mls/hr Q24H IVPB Last administered on 06/19/17t 13:26; Admin Dose 100 MLS/HR; Start at 14:00 ISAMAR GODINEZ MD Jun 19, 2017 15:26
[2017-06-19] MEDS ORDERED: IOHEXOL 300MG/ML 150 ML BTL ONE (15:53)
[2017-06-19] MEDS ORDERED: SOD CHLORIDE 0.9% 100 ML ONE (15:53)
[2017-06-19 19:04] VITALS: BP 118/66; RESP 18
--- NOTE | 2017-06-19 19:46 | PN ---
Date/Time of Note Date/Time of Note DATE: 06/19/17 TIME: 19:42 Assessment/Plan VTE Prophylaxis VTE Prophylaxis Intervention: SCD's Lines/Catheters IV [facility] (from [facility] Peripheral IV Urinary Cath still in place: No Assessment/Plan Chief Complaint/Hosp Course Patient remains afebrile, tolerates clear liquid diet well, denies nausea vomiting, abdominal pain is well controlled. Problems: Assessment/Plan - Sigmoid colon cancer, status post low anterior colon resection on 06/06/17 - Postoperative fluid collection, pending drainage by radiology tomorrow, continue antibiotics per ID Further recommendations based on clinical course. Plan of care discussed with Dr. Plunkett Exam/Review of Systems Vital Signs Vitals Vital Signs Date Time Temp Pulse Resp B/P Pulse Ox O2 Delivery O2 Flow Rate FiO2 06/19/17 19:04 98.9 63 18 118/66 100 06/18/17 15:25 Room Air Intake and Output 06/18/17 06/18/17 06/19/17 15:00 23:00 07:00 Intake Total 100 ml 2110 ml 1700 ml Output Total 1400 ml 1500 ml Balance 100 ml 710 ml 200 ml Exam Constitutional: alert Neck: supple Respiratory: normal air movement Cardiovascular: nl pulses Gastrointestinal: other (Surgical incision), soft Extremities: normal pulses Results Result Diagram: 06/19/17 0505 06/18/17 0425 Results 24 hrs Laboratory Tests Test 06/19/17 05:05 White Blood Count 11.4 #H Red Blood Count 3.62 L Hemoglobin 10.4 L Hematocrit 32.1 L Mean Corpuscular Volume 88.7 Mean Corpuscular Hemoglobin 28.7 L Mean Corpuscular Hemoglobin Concent 32.4 Red Cell Distribution Width 13.4 Platelet Count 343 Mean Platelet Volume 8.9 Neutrophils % 79.5 H Lymphocytes % 11.1 L Monocytes % 7.7 Eosinophils % 0.9 Basophils % 0.3 Nucleated Red Blood Cells % 0.0 Neutrophils # 9.0 H Lymphocytes # 1.3 Monocytes # 0.9 Eosinophils # 0.1 Basophils # 0.0 Nucleated Red Blood Cells # 0.0 Medications Medications Current Medications Ondansetron HCl (Zofran Inj) 4 mg Q6H PRN IV NAUSEA AND/OR VOMITING Last administered on 06/12/17t 22:13; Admin Dose 4 MG; Start 06/06/17 at 12:00 Morphine Sulfate 2 MG/HR CONTINUOUS RATE 2... Q4PCA IV ; Start 06/06/17 at 12:00 Potassium Chloride/Dextrose/ Sod Cl (D5-1/2ns + KCl 20 Meq) 1,000 ml @ 100 mls/ hr Q10H IV Last administered on 06/19/17 05:44; Admin Dose 100 MLS/HR; Start 06/06/17 at 11:32 Naloxone HCl (Narcan) 0.2 mg Q2M PRN IV FOR RESP RATE 8 OR LESS; Start 06/06/17 at 12:30 Lorazepam (Ativan) 0.5 mg Q6H PRN IV ANXIETY Last administered on 06/10/17 19: 53; Admin Dose 0.5 MG; Start 06/06/17 at 17:00 Phenol (Chloraseptic Throat [place]) 2 spray Q2H PRN MT SORE THROAT Last administered on 06/10/17 02:18; Admin Dose 2 SPRAY; Start 06/06/17 at 20:00 Morphine Sulfate (morphine) 2 mg Q1HWA PRN IV PAIN LEVEL 7-10 Last administered on 06/08/17 12:27; Admin Dose 2 MG; Start 06/07/17 at 01:30 Silver Sulfadiazine (Thermazene 1% 25 Gm) 1 applic BID TOP Last administered on 06/19/17 10:18; Admin Dose 1 APPLIC; Start 06/14/17 at 21:00 Acetaminophen 650 mg 650 mg Q6H PRN PO PAIN AND OR ELEVATED TEMP Last administered on 06/17/17 22:39; Admin Dose 650 MG; Start 06/16/17 at 16:00 Metronidazole 100 ml @ 100 mls/hr Q6 IVPB Last administered on 06/19/17 18:41 ; Admin Dose 100 MLS/HR; Start 06/18/17 at 18:00 Levofloxacin/ Dextrose (Levaquin 750 Mg/ D5W 150 ml (Pmx)) 150 ml @ 100 mls/hr Q24H IVPB Last administered on 06/19/17 13:26; Admin Dose 100 MLS/HR; Start at 14:00 ALEX MOON Jun 19, 2017 19:46
--- NOTE | 2017-06-19 22:20 | RADRPT ---
PROCEDURE: CT Abdomen and Pelvis with contrast. CLINICAL INDICATION: Abdomen and pelvis pain. Pelvic fluid collection. TECHNIQUE: CT scan of the abdomen and pelvis with contrast was performed. The patient was scanned following the uncomplicated intravenous administration of 100 cc of Omnipaque-300. Coronal and sag ittal reformatted images were obtained from the axial source images. Images were reviewed on a high- resolution PACS workstation. Total exam DLP is 531.85 mGy-cm. CTDIvol is 8.76 mGy. One or more of the following dose reduction techniques were used: Automated exposure control, adjustment of the mA and/or kV according to patient size, use of iterative reconstruction technique. COMPARISON: CT scan of the abdomen and pelvis dated 06/13/2017. FINDINGS: There is mild atelectasis at both lung bases posteriorly. There is a benign calcified granuloma in t he right middle lobe inferiorly. The lung bases are otherwise normal. There is no pleural effusion o r pericardial effusion. The liver is normal in size and attenuation. There is no focal hepatic lesion. The gallbladder and bile ducts are normal. The spleen is normal in size. There is no focal splenic lesion. Both adrenals are normal with no enlargement or mass. The pancreas is unremarkable with no mass or evidence of pancreatitis. Both kidneys demonstrate normal contrast enhancement. There is no renal mass or hydronephrosis. The abdominal aorta is not dilated. There is no retroperitoneal lymphadenopathy or mass. There has been prior surgery with midline lower abdominal/pelvis skin shaheen. The bladder and distal ureters are normal. The periappendiceal region is unremarkable with no evidence of appendicitis. Postoperative changes are present in the rectosigmoid with a surgical staple line noted. In the presacral space, there is a fluid collection with gas bubbles consistent with an abscess lyubov uring 5.3 x 7.0 x 11.9 cm in AP, transverse, and cranial caudal dimensions. The osseous structures are unremarkable with no fracture or lytic lesion. IMPRESSION: 1. Mild atelectasis at the lung bases posteriorly. 2. Benign calcified granuloma in the right middle lobe. 3. Prior surgery in the rectosigmoid. 4. Fluid collection in the presacral space, larger than seen previously consistent with an abscess. 5. No other new abnormality. RPTAT: QQ .Mickey Yadav MD, MD Date Time Electronically viewed and signed by .Mickey Yadav MD, MD on 06/19/2017 22:20 .R/
[2017-06-20] VITALS (9 sets, daily range): BP systolic 90–113; BP diastolic 52–72; PULSE 53–59; RESP 16–20
[2017-06-20 05:22] LABS: BASOPHILS % 0.4 % (0.0-2.0); EOSINOPHILS # 0.1 10^3/ul (0.0-0.5); EOSINOPHILS % 1.2 % (0.0-7.0); HEMATOCRIT 32.8 % (42.0-52.0); HEMOGLOBIN 10.9 g/dl (14.0-18.0); LYMPHOCYTES # 1.1 10^3/ul (0.8-2.9); LYMPHOCYTES % 12.9 % (15.0-51.0); MEAN CORPUSCULAR HEMOGLOBIN 29.9 pg (29.0-33.0); MEAN CORPUSCULAR HGB CONC 33.2 g/dl (32.0-37.0); MEAN CORPUSCULAR VOLUME 89.9 fl (82.0-101.0); MEAN PLATELET VOLUME 8.8 fl (7.4-10.4); MONOCYTE # 0.7 10^3/ul (0.3-0.9); MONOCYTES % 8.2 % (0.0-11.0); NEUTROPHIL # 6.3 10^3/ul (1.6-7.5); NEUTROPHILS % 76.8 % (39.0-77.0); PLATELET COUNT 367 10^3/UL (140-415); RED BLOOD COUNT 3.65 10^6/ul (4.70-6.10); RED CELL DISTRIBUTION WIDTH 13.1 % (11.5-14.5); WHITE BLOOD COUNT 8.2 10^3/ul (4.8-10.8)
[2017-06-20 05:34] LABS: INR 1.25; PROTIME 15.8 Sec (12.2-14.2); PT RATIO 1.2
[2017-06-20 05:35] LABS: PARTIAL THROMBOPLASTIN TIME 35.5 Sec (25.0-35.0)
[2017-06-20 05:39] LABS: THROMBIN TIME 15.5 SEC (13.8-19.1)
[2017-06-20 05:43] LABS: CREATININE 0.84 mg/dl (0.61-1.24); POTASSIUM 4.2 mmol/L (3.5-5.1)
[2017-06-20] MEDS: metroNIDAZOLE 500 MG/NS (PMX) 100 ML IVPB SCH ×4 (06:06→23:34)
[2017-06-20] MEDS: D5W-0.45 NACL + KCL 20 MEQ 1,000 ML IV SCH ×2 (08:00→18:28)
[2017-06-20] MEDS ORDERED: LIDOCAINE 1% (MDV) 20 ML INJ ONE (08:47)
[2017-06-20] MEDS ORDERED: DIPHENHYDRAMINE 50 MG INJ ONE (08:48)
[2017-06-20] MEDS ORDERED: FENTAnyl 50 MCG/ML VIAL ONE (08:48)
--- NOTE | 2017-06-20 10:31 | RADRPT ---
PROCEDURE: CT guided pelvic abscess drainage. CLINICAL INDICATION: Recent surgery. Pelvic abscess. TECHNIQUE: Informed consent was obtained. The procedure, risks, benefits, complications and alternatives were explained to the patient. Risks including bleeding and infection were explained. The patient underst ood and was willing to proceed. A procedural pause was performed. The patient's name, date of , and procedure to be performed were verified. One or more of the following dose reduction techn iques were used: Automated exposure control, adjustment of the mA and/or kV according to patient siz e, use of iterative reconstruction technique. Using local anesthetic, sterile technique and CT guidance, a 19-gauge Yueh needle was advanced into the fluid collection in the cul-de-sac via the the posterior gluteal approach. CT scan was performe d confirming position. Greenish brown fluid was also aspirated confirming position. The needle fro m the Yueh catheter was removed, leaving the Yueh catheter in place within the abscess. A 0.035-inc h Amplatz guidewire was advanced through the Yueh catheter into the abscess. The Yueh catheter was removed. The tract was dilated to 8-Portuguese. An 8.5 Portuguese multipurpose drainage catheter was advan joey over the guidewire into the abscess. The guidewire was removed. Additional scanning was perfor med confirming position. The catheter was then sutured to the patient's skin with 2-0 silk. Approx imately 100 ml of pus was aspirated. The catheter was connected to a drainage bag. A dressing was applied. The patient tolerated procedure well. COMPARISON: CT scan of the abdomen and pelvis dated 06/19/2017. FINDINGS: Final images demonstrate the drainage catheter in satisfactory position within the pelvic abscess. IMPRESSION: 1. Successful CT guided pelvic abscess drainage. RPTAT: QQ .Mickey Yadav MD, Date Time Electronically viewed and signed by .Mickey Yadav MD, on 06/20/2017 10:30 .R/
--- NOTE | 2017-06-20 12:17 | CONS ---
Date/Time of Note Date/Time of Note DATE: 06/20/17 TIME: 12:12 Assessment/Plan Assessment/Plan Chief Complaint/Hosp Course - Post-op SIRS with fever and leukocytosis - resolved - Rectal cancer, s/p laparotomy and low anterior colon resection 06/06/2017 - Abdominal incisional wound growing E. Coli 06/14/2017 - Pelvic abscess, s/p CT guided drainage catheter placement 06/20/2017 - Normocytic anemia - Near syncope likely vasovagal 06/20/2017 Recommendations: - Follow up aerobic/anaerobic cxs from CT guided drainage today - Continue Levaquin and Flagyl (06/18/2017-) - Agree with IVF bolus - Continue local wound care Management d/w patient, RN Jose, and Dr. Hercules Problems: Consultation Date/Type/Reason Admit Date/Time Jun 06, 2017 at 05:15 Initial Consult Date 06/11/17 Type of Consultation: Infectious Disease 24 HR Interval Summary Free Text/Dictation Pt just back from CT guided pelvic abscess drainage catheter placement. Pt had near syncopal episode after voiding with hypotension and diaphoresis. BS stable per d/w nursing staff. Denies pain, SOB, n/v/d, dysuria. Dizziness has improved after laying in bed in reverse Trendelenburg position. Exam/Review of Systems Vital Signs Vitals Vital Signs Date Time Temp Pulse Resp B/P Pulse Ox O2 Delivery O2 Flow Rate FiO2 06/20/17 10:44 98.7 67 19 105/69 96 06/20/17 01:03 21 06/18/17 15:25 Room Air Intake and Output 06/19/17 06/19/17 06/20/17 15:00 23:00 07:00 Intake Total 250 ml 1970 ml 1700 ml Output Total 2200 ml 2000 ml Balance 250 ml -230 ml -300 ml Exam Constitutional: alert, oriented, well developed, other (pale and diaphoretic) Head: atraumatic, normocephalic Eyes: nl conjunctiva, nl lids ENMT: nl external ears & nose Neck: supple Respiratory: clear to auscultation, normal air movement Cardiovascular: nl pulses, regular rate and rhythm Gastrointestinal: soft, non-tender, other (abdominal ML dressing c/d/i; external drainage catheter with purulent drainage), soft Musculoskeletal: nl extremities to inspection Extremities: normal pulses Neurological: nl mental status, nl speech, nl strength Skin: nl turgor, pale No rash or lesions Results Result Diagram: 06/20/1743106/20/17 0432 Results 24 hrs Laboratory Tests Test 06/20/17 04:32 White Blood Count 8.2 # Red Blood Count 3.65 L Hemoglobin 10.9 L Hematocrit 32.8 L Mean Corpuscular Volume 89.9 Mean Corpuscular Hemoglobin 29.9 Mean Corpuscular Hemoglobin Concent 33.2 Red Cell Distribution Width 13.1 Platelet Count 352 Mean Platelet Volume 8.8 Neutrophils % 76.8 Lymphocytes % 12.9 L Monocytes % 8.2 Eosinophils % 1.2 Basophils % 0.4 Nucleated Red Blood Cells % 0.0 Neutrophils # 6.3 Lymphocytes # 1.1 Monocytes # 0.7 Eosinophils # 0.1 Basophils # 0.0 Nucleated Red Blood Cells # 0.0 Prothrombin Time 15.8 H Prothrombin Time Ratio 1.2 INR International Normalized Ratio 1.25 Activated Partial Thromboplast Time 35.5 H Thrombin Time 15.5 Sodium Level 137 Potassium Level 4.2 Chloride Level 102 Carbon Dioxide Level 28 Anion Gap 11 Blood Urea Nitrogen 9 Creatinine 0.84 Glucose Level 123 Calcium Level 10.0 Medications Medications Current Medications Ondansetron HCl (Zofran Inj) 4 mg Q6H PRN IV NAUSEA AND/OR VOMITING Last administered on 06/12/17 22:13; Admin Dose 4 MG; Start 06/06/17 at 12:00 Morphine Sulfate 2 MG/HR CONTINUOUS RATE 2... Q4PCA IV ; Start 06/06/17 at 12:00 Potassium Chloride/Dextrose/ Sod Cl (D5-1/2ns + KCl 20 Meq) 1,000 ml @ 100 mls/ hr Q10H IV Last administered on 06/19/17 21:31; Admin Dose 100 MLS/HR; Start 06/06/17 at 11:32 Naloxone HCl (Narcan) 0.2 mg Q2M PRN IV FOR RESP RATE 8 OR LESS; Start 06/06/17 at 12:30 Lorazepam (Ativan) 0.5 mg Q6H PRN IV ANXIETY Last administered on 06/10/17 19: 53; Admin Dose 0.5 MG; Start 06/06/17 at 17:00 Phenol (Chloraseptic Throat [place]) 2 spray Q2H PRN MT SORE THROAT Last administered on 06/10/17 02:18; Admin Dose 2 SPRAY; Start 06/06/17 at 20:00 Morphine Sulfate (morphine) 2 mg Q1HWA PRN IV PAIN LEVEL 7-10 Last administered on 06/08/17 12:27; Admin Dose 2 MG; Start 06/07/17 at 01:30 Silver Sulfadiazine (Thermazene 1% 25 Gm) 1 applic BID TOP Last administered on 06/19/17 21:31; Admin Dose 1 APPLIC; Start 06/14/17 at 21:00 Acetaminophen 650 mg 650 mg Q6H PRN PO PAIN AND OR ELEVATED TEMP Last administered on 06/17/17 22:39; Admin Dose 650 MG; Start 06/16/17 at 16:00 Metronidazole 100 ml @ 100 mls/hr Q6 IVPB Last administered on 06/20/17 06:06 ; Admin Dose 100 MLS/HR; Start 06/18/17 at 18:00 Levofloxacin/ Dextrose (Levaquin 750 Mg/ D5W 150 ml (Pmx)) 150 ml @ 100 mls/hr Q24H IVPB Last administered on 06/19/17 13:26; Admin Dose 100 MLS/HR; Start at 14:00 TIM SULLIVAN NP Jun 20, 2017 12:17
[2017-06-20] MEDS: SILVER SULFADIAZINE 1% 25 GM CR TOP SCH ×2 (12:46→21:50)
[2017-06-20] MEDS ORDERED: DEXTROSE 5%-0.9% NACL 1,000 ML IV SCH (13:00)
[2017-06-20] MEDS: LEVOFLOXACIN 750MG/D5W (PMX) 150 ML IVPB SCH (14:40)
--- NOTE | 2017-06-20 17:20 | PN ---
Date/Time of Note Date/Time of Note DATE: 06/20/17 TIME: 17:16 Assessment/Plan VTE Prophylaxis VTE Prophylaxis Intervention: SCD's Lines/Catheters [facility] Peripheral IV Urinary Cath still in place: No Assessment/Plan Chief Complaint/Hosp Course Patient is status post pelvic abscess drained by radiology today in the morning , patient became hypotensive and dizzy when get out of bed, pressure improved with fluid boluses, continue bedrest. 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 Plan of care discussed with Dr. Plunkett Problems: Exam/Review of Systems Vital Signs Vitals Vital Signs Date Time Temp Pulse Resp B/P Pulse Ox O2 Delivery O2 Flow Rate FiO2 06/20/17 14:38 98.1 68 20 101/66 98 06/20/17 13:09 Room Air 06/20/17 01:03 21 Intake and Output 06/19/17 06/19/17 06/20/17 15:00 23:00 07:00 Intake Total 250 ml 1970 ml 1700 ml Output Total 2200 ml 2000 ml Balance 250 ml -230 ml -300 ml Exam Constitutional: alert Neck: supple Respiratory: normal air movement Cardiovascular: nl pulses Gastrointestinal: other (Surgical incision), soft, pelvic abscess drain Extremities: normal pulses Results Result Diagram: 06/20/17 0432 06/20/17 0432 Results 24 hrs Laboratory Tests Test 06/20/17 04:32 06/20/17 12:31 White Blood Count 8.2 # Red Blood Count 3.65 L Hemoglobin 10.9 L Hematocrit 32.8 L Mean Corpuscular Volume 89.9 Mean Corpuscular Hemoglobin 29.9 Mean Corpuscular Hemoglobin Concent 33.2 Red Cell Distribution Width 13.1 Platelet Count 352 Mean Platelet Volume 8.8 Neutrophils % 76.8 Lymphocytes % 12.9 L Monocytes % 8.2 Eosinophils % 1.2 Basophils % 0.4 Nucleated Red Blood Cells % 0.0 Neutrophils # 6.3 Lymphocytes # 1.1 Monocytes # 0.7 Eosinophils # 0.1 Basophils # 0.0 Nucleated Red Blood Cells # 0.0 Prothrombin Time 15.8 H Prothrombin Time Ratio 1.2 INR International Normalized Ratio 1.25 Activated Partial Thromboplast Time 35.5 H Thrombin Time 15.5 Sodium Level 137 Potassium Level 4.2 Chloride Level 102 Carbon Dioxide Level 28 Anion Gap 11 Blood Urea Nitrogen 9 Creatinine 0.84 Glucose Level 123 Calcium Level 10.0 Bedside Glucose 127 Medications Medications Current Medications Ondansetron HCl (Zofran Inj) 4 mg Q6H PRN IV NAUSEA AND/OR VOMITING Last administered on 06/12/17 22:13; Admin Dose 4 MG; Start 06/06/17 at 12:00 Morphine Sulfate 2 MG/HR CONTINUOUS RATE 2... Q4PCA IV ; Start 06/06/17 at 12:00 Potassium Chloride/Dextrose/ Sod Cl (D5-1/2ns + KCl 20 Meq) 1,000 ml @ 100 mls/ hr Q10H IV Last administered on 06/19/17 21:31; Admin Dose 100 MLS/HR; Start 06/06/17 at 11:32 Naloxone HCl (Narcan) 0.2 mg Q2M PRN IV FOR RESP RATE 8 OR LESS; Start 06/06/17 at 12:30 Lorazepam (Ativan) 0.5 mg Q6H PRN IV ANXIETY Last administered on 06/10/17 19: 53; Admin Dose 0.5 MG; Start 06/06/17 at 17:00 Phenol (Chloraseptic Throat [place]) 2 spray Q2H PRN MT SORE THROAT Last administered on 06/10/17 02:18; Admin Dose 2 SPRAY; Start 06/06/17 at 20:00 Morphine Sulfate (morphine) 2 mg Q1HWA PRN IV PAIN LEVEL 7-10 Last administered on 06/08/17 12:27; Admin Dose 2 MG; Start 06/07/17 at 01:30 Silver Sulfadiazine (Thermazene 1% 25 Gm) 1 applic BID TOP Last administered on 06/20/17 12:46; Admin Dose 1 APPLIC; Start 06/14/17 at 21:00 Acetaminophen 650 mg 650 mg Q6H PRN PO PAIN AND OR ELEVATED TEMP Last administered on 06/17/17 22:39; Admin Dose 650 MG; Start 06/16/17 at 16:00 Metronidazole 100 ml @ 100 mls/hr Q6 IVPB Last administered on 06/20/17 12:46 ; Admin Dose 100 MLS/HR; Start 06/18/17 at 18:00 Levofloxacin/ Dextrose (Levaquin 750 Mg/ D5W 150 ml (Pmx)) 150 ml @ 100 mls/hr Q24H IVPB Last administered on 06/20/17t 14:40; Admin Dose 100 MLS/HR; Start at 14:00 ALEX MOON Jun 20, 2017 17:20
--- NOTE | 2017-06-20 22:38 | PN ---
DATE: 06/20/2017 SUBJECTIVE DATA: No specific complaint. Apparently, patient had percutaneous drainage of pelvic collection/abscess just about an hour ago. Now patient is lying down in the bed. VITAL SIGNS: Temperature 98.1, heart rate 68 (Once on the floor when he was about to get out of bed, he almost fainted, and the heart rate had been 53 at that time. blood pressure 101/66, saturation 98 percent room air. LABORATORY AND DIAGNOSTIC DATA: Today: WBC 8200, with 76 percent neutrophils, hemoglobin 10.9, hematocrit 33.8. Chemistry: Sodium 137, potassium 4.2, BUN 9, creatinine 0.84, glucose 127. Calcium 10. OBJECTIVE DATA: HEART: Regular. LUNGS: Clear. ABDOMEN: Soft. EXTREMITIES: No calf tenderness. The pigtail drain, which enters the pelvic cavity up around the left side of the gluteal muscles, has drained in the accordion bag about 50 cc of brownish, purulent-looking liquid. From Radiology after aspiration, they have sent the specimen to the lab for aerobic and anaerobic cultures. ASSESSMENT AND PLAN: A 57-year-old, status post laparotomy and low anterior resection of the cancer of the rectosigmoid and internal anastomosis with the stapler. On evaluation of the CT scan of the abdomen and pelvis about 6 days ago, it showed that there was a fluid collection, presacral. Since the patient was afebrile and leukocytosis was normal, decision was made to observe it and advance the diet for the patient, but after discontinuing the antibiotic that already patient had a few days before, after 48 hours off antibiotics, patient started running fever and temperature of 101, and leukocyte count up to 18,000. So the antibiotic was started back. CT scan, as was mentioned, revealed presence of more fluid collection, and Dr. Yadav, the radiologist, was suspicious of abscess. So he suggested percutaneous drainage, and we agreed with that. It was done today and per his report, there was pus. Right now, the fluid is brownish, turbid, appears like pus. PLAN: Continue antibiotic. Further investigation may be required to make sure of presence of leak or absence of the leak. Dictated By: Farrukh Ni MD /paola/[email or web address] /Document#: [id number] TESSY
[2017-06-21] MEDS: D5W-0.45 NACL + KCL 20 MEQ 1,000 ML IV SCH ×4 (04:00→23:34)
[2017-06-21 05:19] LABS: BASOPHILS % 0.5 % (0.0-2.0); EOSINOPHILS # 0.1 10^3/ul (0.0-0.5); EOSINOPHILS % 1.6 % (0.0-7.0); HEMOGLOBIN 10.8 g/dl (14.0-18.0); LYMPHOCYTES # 1.3 10^3/ul (0.8-2.9); LYMPHOCYTES % 20.4 % (15.0-51.0); MEAN CORPUSCULAR HEMOGLOBIN 30.1 pg (29.0-33.0); MEAN CORPUSCULAR HGB CONC 33.8 g/dl (32.0-37.0); MEAN CORPUSCULAR VOLUME 89.1 fl (82.0-101.0); MEAN PLATELET VOLUME 8.7 fl (7.4-10.4); MONOCYTE # 0.6 10^3/ul (0.3-0.9); MONOCYTES % 9.1 % (0.0-11.0); NEUTROPHIL # 4.3 10^3/ul (1.6-7.5); NEUTROPHILS % 67.9 % (39.0-77.0); PLATELET COUNT 338 10^3/UL (140-415); RED BLOOD COUNT 3.59 10^6/ul (4.70-6.10); WHITE BLOOD COUNT 6.3 10^3/ul (4.8-10.8)
[2017-06-21] MEDS: metroNIDAZOLE 500 MG/NS (PMX) 100 ML IVPB SCH ×4 (05:31→23:34)
[2017-06-21 05:45] LABS: CALCIUM 9.7 mg/dl (8.4-10.2); CREATININE 0.91 mg/dl (0.61-1.24); POTASSIUM 4.1 mmol/L (3.5-5.1)
[2017-06-21 07:00] VITALS: BP 118/77; RESP 16
[2017-06-21] MEDS: SILVER SULFADIAZINE 1% 25 GM CR TOP SCH ×2 (09:52→21:51)
--- NOTE | 2017-06-21 12:59 | CONS ---
Date/Time of Note Date/Time of Note DATE: 06/21/17 TIME: 12:44 Assessment/Plan Assessment/Plan Additional Assessment/Plan - Post-op SIRS with fever and leukocytosis - resolved - Rectal cancer, s/p laparotomy and low anterior colon resection 06/06/2017 - Abdominal incisional wound growing E. Coli 06/14/2017 - Abdominal incisional wound culture- 06/21/2017 WOUND CULTURE Preliminary No growth after 1 day no growth in one day growing , Gram stain pending - Pelvic abscess, s/p CT guided drainage catheter placement 06/20/2017 - Normocytic anemia - Near syncope likely vasovagal 06/20/2017- none reported today Recommendations: - Follow up aerobic/anaerobic cxs from CT guided drainage today- pending - Continue Levaquin and Flagyl (06/18/2017-) - Agree with IVF bolus - Continue local wound care Plan of care d/w patient, his , MATTHEW waldron, and Dr. Hercules Consultation Date/Type/Reason Admit Date/Time Jun 06, 2017 at 05:15 Initial Consult Date 06/11/17 Type of Consultation: Infectious Disease 24 HR Interval Summary Free Text/Dictation Sitting up in chair, doing well, sp CT guided pelvic abscess drainage catheter placement on 06/20/2017, c/o dizziness when get OOB. Denies any sweating, Dizziness improved after patient goes back to bed, none at present. tolerating sitting.dw staff/ case mange. Denies chest pain, palpitations, SOB, focal weakness/numbness, rash, joint pain, calves pain, abdominal pain, n/v/d, dysuria. Constitutional: requiring IVF Detailed Summary Respiratory: no complaints Cardiovascular: no complaints Gastrointestinal: no complaints Genitourinary: other (lower abdomen pain sec to sp drain placement- better than before) Skin: no complaints Exam/Review of Systems Vital Signs Vitals Vital Signs Date Time Temp Pulse Resp B/P Pulse Ox O2 Delivery O2 Flow Rate FiO2 06/21/17 07:00 98.6 69 16 118/77 99 06/20/17 13:09 Room Air 06/20/17 01:03 21 Intake and Output 06/20/17 06/20/17 06/21/17 15:00 23:00 07:00 Intake Total 200 ml 1450 ml 1350 ml Output Total 1220 ml 925 ml Balance 200 ml 230 ml 425 ml Exam Constitutional: alert, oriented, well developed Respiratory: clear to auscultation, diminished breath sounds Cardiovascular: nl pulses, regular rate and rhythm Gastrointestinal: other, soft Musculoskeletal: nl extremities to inspection Extremities: normal pulses Neurological: nl mental status, nl speech Results Result Diagram: 06/21/176 06/21/17 0426 Results 24 hrs Laboratory Tests Test 06/21/17 04:26 White Blood Count 6.3 # Red Blood Count 3.59 L Hemoglobin 10.8 L Hematocrit 32.0 L Mean Corpuscular Volume 89.1 Mean Corpuscular Hemoglobin 30.1 Mean Corpuscular Hemoglobin Concent 33.8 Red Cell Distribution Width 13.0 Platelet Count 338 Mean Platelet Volume 8.7 Neutrophils % 67.9 Lymphocytes % 20.4 Monocytes % 9.1 Eosinophils % 1.6 Basophils % 0.5 Nucleated Red Blood Cells % 0.0 Neutrophils # 4.3 Lymphocytes # 1.3 Monocytes # 0.6 Eosinophils # 0.1 Basophils # 0.0 Nucleated Red Blood Cells # 0.0 Sodium Level 137 Potassium Level 4.1 Chloride Level 103 Carbon Dioxide Level 27 Anion Gap 11 Blood Urea Nitrogen 9 Creatinine 0.91 Glucose Level 122 Calcium Level 9.7 Magnesium Level 2.0 Medications Medications Current Medications Ondansetron HCl (Zofran Inj) 4 mg Q6H PRN IV NAUSEA AND/OR VOMITING Last administered on 06/12/17 22:13; Admin Dose 4 MG; Start 06/06/17 at 12:00 Morphine Sulfate 2 MG/HR CONTINUOUS RATE 2... Q4PCA IV ; Start 06/06/17 at 12:00 Potassium Chloride/Dextrose/ Sod Cl (D5-1/2ns + KCl 20 Meq) 1,000 ml @ 100 mls/ hr Q10H IV Last administered on 06/21/17 05:32; Admin Dose 100 MLS/HR; Start 06/06/17 at 11:32 Naloxone HCl (Narcan) 0.2 mg Q2M PRN IV FOR RESP RATE 8 OR LESS; Start 06/06/17 at 12:30 Lorazepam (Ativan) 0.5 mg Q6H PRN IV ANXIETY Last administered on 06/10/17 19: 53; Admin Dose 0.5 MG; Start 06/06/17 at 17:00 Phenol (Chloraseptic Throat [place]) 2 spray Q2H PRN MT SORE THROAT Last administered on 06/10/17 02:18; Admin Dose 2 SPRAY; Start 06/06/17 at 20:00 Morphine Sulfate (morphine) 2 mg Q1HWA PRN IV PAIN LEVEL 7-10 Last administered on 06/08/17 12:27; Admin Dose 2 MG; Start 06/07/17 at 01:30 Silver Sulfadiazine (Thermazene 1% 25 Gm) 1 applic BID TOP Last administered on 06/21/17 09:52; Admin Dose 1 APPLIC; Start 06/14/17 at 21:00 Acetaminophen 650 mg 650 mg Q6H PRN PO PAIN AND OR ELEVATED TEMP Last administered on 06/17/17 22:39; Admin Dose 650 MG; Start 06/16/17 at 16:00 Metronidazole 100 ml @ 100 mls/hr Q6 IVPB Last administered on 06/21/17 12:07 ; Admin Dose 100 MLS/HR; Start 06/18/17 at 18:00 Levofloxacin/ Dextrose (Levaquin 750 Mg/ D5W 150 ml (Pmx)) 150 ml @ 100 mls/hr Q24H IVPB Last administered on 06/20/17 14:40; Admin Dose 100 MLS/HR; Start at 14:00 KERRY RECINOS Jun 21, 2017 12:54
--- NOTE | 2017-06-21 13:33 | PN ---
Date/Time of Note Date/Time of Note DATE: 06/21/17 TIME: 13:25 Assessment/Plan VTE Prophylaxis VTE Prophylaxis Intervention: ambulation, SCD's Lines/Catheters IV [facility]ter [facility] (from [facility] Peripheral IV Urinary Cath still in place: No Assessment/Plan Assessment/Plan 57 years old male status post low anterior resection of the cancer of the rectosigmoid junction. Postop patient got complicated with accumulation of fluid presacral area also patient has fever and leukocytosis. The collection was yesterday drained by Dr. vicente percutaneously and apparently it was purulent the specimen was sent for culture. But so far the culture is negative. Since there is suspicion of leakage from the anastomosis per discussion of plan between Dr. Aguirre and Dr. Yadav today requesting Gastrografin enema to find out if there is any leakage. Further decision will be made according to the results of the Gastrografin enema. Subjective 24 Hr Interval Summary Free Text/Dictation No new events overnight. No nausea no vomiting. Minimal bowel movement. Yesterday had percutaneous drainage of the presacral fluid collection. Correlate with the radiologist it was purulent. So far the culture has not grown any bacteria. Exam/Review of Systems Vital Signs Vitals Vital Signs Date Time Temp Pulse Resp B/P Pulse Ox O2 Delivery O2 Flow Rate FiO2 06/21/17 07:00 98.6 69 16 118/77 99 06/20/17 13:09 Room Air 06/20/17 01:03 21 Intake and Output 06/20/17 06/20/17 06/21/17 15:00 23:00 07:00 Intake Total 200 ml 1450 ml 1350 ml Output Total 1220 ml 925 ml Balance 200 ml 230 ml 425 ml Exam Patient is alert awake oriented 3. Vital signs temperature 98.6 heart rate 69. Respirations 16. Blood pressure 118/77 saturation 99% room WBC today 6300 with 69% neutrophils. culture from the aspiration from presacral fluid collection so far is negative. Heart regular lungs clear abdomen soft. The drainage from the pigtail catheter is brownish turbid in color. The past 24 hours it has [id number] cc. Till 12 noon which was 45 cc. Results Result Diagram: 06/21/17 0426 06/21/17 0426 Results 24 hrs Laboratory Tests Test 06/21/17 04:26 White Blood Count 6.3 # Red Blood Count 3.59 L Hemoglobin 10.8 L Hematocrit 32.0 L Mean Corpuscular Volume 89.1 Mean Corpuscular Hemoglobin 30.1 Mean Corpuscular Hemoglobin Concent 33.8 Red Cell Distribution Width 13.0 Platelet Count 338 Mean Platelet Volume 8.7 Neutrophils % 67.9 Lymphocytes % 20.4 Monocytes % 9.1 Eosinophils % 1.6 Basophils % 0.5 Nucleated Red Blood Cells % 0.0 Neutrophils # 4.3 Lymphocytes # 1.3 Monocytes # 0.6 Eosinophils # 0.1 Basophils # 0.0 Nucleated Red Blood Cells # 0.0 Sodium Level 137 Potassium Level 4.1 Chloride Level 103 Carbon Dioxide Level 27 Anion Gap 11 Blood Urea Nitrogen 9 Creatinine 0.91 Glucose Level 122 Calcium Level 9.7 Magnesium Level 2.0 Medications Medications Current Medications Ondansetron HCl (Zofran Inj) 4 mg Q6H PRN IV NAUSEA AND/OR VOMITING Last administered on 06/12/17 22:13; Admin Dose 4 MG; Start 06/06/17 at 12:00 Morphine Sulfate 2 MG/HR CONTINUOUS RATE 2... Q4PCA IV ; Start 06/06/17 at 12:00 Potassium Chloride/Dextrose/ Sod Cl (D5-1/2ns + KCl 20 Meq) 1,000 ml @ 100 mls/ hr Q10H IV Last administered on 06/21/17 05:32; Admin Dose 100 MLS/HR; Start 06/06/17 at 11:32 Naloxone HCl (Narcan) 0.2 mg Q2M PRN IV FOR RESP RATE 8 OR LESS; Start 06/06/17 at 12:30 Lorazepam (Ativan) 0.5 mg Q6H PRN IV ANXIETY Last administered on 06/10/17 19: 53; Admin Dose 0.5 MG; Start 06/06/17 at 17:00 Phenol (Chloraseptic Throat [place]) 2 spray Q2H PRN MT SORE THROAT Last administered on 06/10/17 02:18; Admin Dose 2 SPRAY; Start 06/06/17 at 20:00 Morphine Sulfate (morphine) 2 mg Q1HWA PRN IV PAIN LEVEL 7-10 Last administered on 06/08/17 12:27; Admin Dose 2 MG; Start 06/07/17 at 01:30 Silver Sulfadiazine (Thermazene 1% 25 Gm) 1 applic BID TOP Last administered on 06/21/17 09:52; Admin Dose 1 APPLIC; Start 06/14/17 at 21:00 Acetaminophen 650 mg 650 mg Q6H PRN PO PAIN AND OR ELEVATED TEMP Last administered on 06/17/17 22:39; Admin Dose 650 MG; Start 06/16/17 at 16:00 Metronidazole 100 ml @ 100 mls/hr Q6 IVPB Last administered on 06/21/17 12:07 ; Admin Dose 100 MLS/HR; Start 06/18/17 at 18:00 Levofloxacin/ Dextrose (Levaquin 750 Mg/ D5W 150 ml (Pmx)) 150 ml @ 100 mls/hr Q24H IVPB Last administered on 06/20/17 14:40; Admin Dose 100 MLS/HR; Start at 14:00 ISAMAR GODINEZ MD Jun 21, 2017 13:33
[2017-06-21] MEDS: LEVOFLOXACIN 750MG/D5W (PMX) 150 ML IVPB SCH (13:46)
[2017-06-21] MEDS ORDERED: DIATR MEGLU/DIATRIZOATE SODIUM 120 ML BTL ONE ×3 (14:20)
--- NOTE | 2017-06-21 15:54 | RADRPT ---
PROCEDURE: XR Abdomen. CLINICAL INDICATION: Abdomen pain. TECHNIQUE: AP supine abdomen x-ray. COMPARISON: Images from CT scan guided drainage of pelvic abscess dated 06/20/2017. CT scan of the pelvis dated 06/19/2017. FINDINGS: There is a large amount of contrast in the colon and rectosigmoid from the prior study. The drainage catheter is noted in satisfactory position the tip coiled in the midline pelvis. Midline vertical s kin shaheen are noted in the lower abdomen and pelvis. Surgical shaheen are present overlying the re ctosigmoid region. There is no evidence of obstruction. The osseus structures are unremarkable. IMPRESSION: 1. Large amount of contrast in the colon and rectosigmoid from the prior study. For this reason, th e limited water soluble contrast enema could not be performed. RPTAT: QQ .Mickey Yadav MD, Date Time Electronically viewed and signed by .Mickey Yadav MD, on 06/21/2017 15:54 .R/
--- NOTE | 2017-06-21 17:52 | PN ---
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 Plan of care discussed with Dr. Plunkett Problems: Exam/Review of Systems Vital Signs Vitals Vital Signs Date Time Temp Pulse Resp B/P Pulse Ox O2 Delivery O2 Flow Rate FiO2 06/21/17 07:00 98.6 69 16 118/77 99 06/20/17 13:09 Room Air 06/20/17 01:03 21 Intake and Output 06/20/17 06/20/17 06/21/17 15:00 23:00 07:00 Intake Total 200 ml 1450 ml 1350 ml Output Total 1220 ml 925 ml Balance 200 ml 230 ml 425 ml Exam Constitutional: alert Neck: supple Respiratory: normal air movement Cardiovascular: nl pulses Gastrointestinal: other (Surgical incision), soft, pelvic abscess drain Extremities: normal pulses Results Result Diagram: 06/21/176 06/21/17 0426 Results 24 hrs Laboratory Tests Test 06/21/17 04:26 White Blood Count 6.3 # Red Blood Count 3.59 L Hemoglobin 10.8 L Hematocrit 32.0 L Mean Corpuscular Volume 89.1 Mean Corpuscular Hemoglobin 30.1 Mean Corpuscular Hemoglobin Concent 33.8 Red Cell Distribution Width 13.0 Platelet Count 338 Mean Platelet Volume 8.7 Neutrophils % 67.9 Lymphocytes % 20.4 Monocytes % 9.1 Eosinophils % 1.6 Basophils % 0.5 Nucleated Red Blood Cells % 0.0 Neutrophils # 4.3 Lymphocytes # 1.3 Monocytes # 0.6 Eosinophils # 0.1 Basophils # 0.0 Nucleated Red Blood Cells # 0.0 Sodium Level 137 Potassium Level 4.1 Chloride Level 103 Carbon Dioxide Level 27 Anion Gap 11 Blood Urea Nitrogen 9 Creatinine 0.91 Glucose Level 122 Calcium Level 9.7 Magnesium Level 2.0 Medications Medications Current Medications Ondansetron HCl (Zofran Inj) 4 mg Q6H PRN IV NAUSEA AND/OR VOMITING Last administered on 06/12/17 22:13; Admin Dose 4 MG; Start 06/06/17 at 12:00 Morphine Sulfate 2 MG/HR CONTINUOUS RATE 2... Q4PCA IV ; Start 06/06/17 at 12:00 Potassium Chloride/Dextrose/ Sod Cl (D5-1/2ns + KCl 20 Meq) 1,000 ml @ 100 mls/ hr Q10H IV Last administered on 06/21/17 05:32; Admin Dose 100 MLS/HR; Start 06/06/17 at 11:32 Naloxone HCl (Narcan) 0.2 mg Q2M PRN IV FOR RESP RATE 8 OR LESS; Start 06/06/17 at 12:30 Lorazepam (Ativan) 0.5 mg Q6H PRN IV ANXIETY Last administered on 06/10/17 19: 53; Admin Dose 0.5 MG; Start 06/06/17 at 17:00 Phenol (Chloraseptic Throat [place]) 2 spray Q2H PRN MT SORE THROAT Last administered on 06/10/17 02:18; Admin Dose 2 SPRAY; Start 06/06/17 at 20:00 Morphine Sulfate (morphine) 2 mg Q1HWA PRN IV PAIN LEVEL 7-10 Last administered on 06/08/17 12:27; Admin Dose 2 MG; Start 06/07/17 at 01:30 Silver Sulfadiazine (Thermazene 1% 25 Gm) 1 applic BID TOP Last administered on 06/21/17 09:52; Admin Dose 1 APPLIC; Start 06/14/17 at 21:00 Acetaminophen 650 mg 650 mg Q6H PRN PO PAIN AND OR ELEVATED TEMP Last administered on 06/17/17 22:39; Admin Dose 650 MG; Start 06/16/17 at 16:00 Metronidazole 100 ml @ 100 mls/hr Q6 IVPB Last administered on 06/21/17 12:07 ; Admin Dose 100 MLS/HR; Start 06/18/17 at 18:00 Levofloxacin/ Dextrose (Levaquin 750 Mg/ D5W 150 ml (Pmx)) 150 ml @ 100 mls/hr Q24H IVPB Last administered on 06/21/17 13:46; Admin Dose 100 MLS/HR; Start at 14:00 ALEX MOON Jun 21, 2017 17:52
[2017-06-21 19:27] VITALS: BP 101/64; RESP 18
[2017-06-21] MEDS: MINERAL OIL 30ML CUP PO SCH (21:51)
[2017-06-21] MEDS: LORAZEPAM 0.5 MG TAB PO PRN (23:56)
[2017-06-22 01:57] VITALS: BP 104/56; PULSE 70; RESP 17
[2017-06-22 05:53] LABS: BASOPHILS % 0.6 % (0.0-2.0); EOSINOPHILS # 0.1 10^3/ul (0.0-0.5); HEMATOCRIT 32.2 % (42.0-52.0); HEMOGLOBIN 10.9 g/dl (14.0-18.0); LYMPHOCYTES # 1.3 10^3/ul (0.8-2.9); LYMPHOCYTES % 26.6 % (15.0-51.0); MEAN CORPUSCULAR HEMOGLOBIN 29.9 pg (29.0-33.0); MEAN CORPUSCULAR HGB CONC 33.9 g/dl (32.0-37.0); MEAN CORPUSCULAR VOLUME 88.2 fl (82.0-101.0); MEAN PLATELET VOLUME 8.7 fl (7.4-10.4); MONOCYTE # 0.5 10^3/ul (0.3-0.9); MONOCYTES % 10.2 % (0.0-11.0); PLATELET COUNT 323 10^3/UL (140-415); RED BLOOD COUNT 3.65 10^6/ul (4.70-6.10); WHITE BLOOD COUNT 4.9 10^3/ul (4.8-10.8)
[2017-06-22] MEDS: MINERAL OIL 30ML CUP PO SCH ×3 (06:03→22:00)
[2017-06-22] MEDS: metroNIDAZOLE 500 MG/NS (PMX) 100 ML IVPB SCH ×3 (06:04→18:09)
[2017-06-22 06:51] LABS: CALCIUM 9.4 mg/dl (8.4-10.2); CREATININE 0.9 mg/dl (0.61-1.24); POTASSIUM 4.2 mmol/L (3.5-5.1)
[2017-06-22 08:51] VITALS: BP 112/66; RESP 18
[2017-06-22] MEDS: D5W-0.45 NACL + KCL 20 MEQ 1,000 ML IV SCH ×2 (10:05→20:00)
[2017-06-22] MEDS: SILVER SULFADIAZINE 1% 25 GM CR TOP SCH ×2 (10:06→20:59)
[2017-06-22] MEDS: ONDANSETRON 4 MG INJ IV PRN (10:06)
[2017-06-22] MEDS: ESCITALOPRAM 10 MG TAB PO SCH (13:13)
[2017-06-22 14:00] VITALS: BP 120/66; RESP 18
[2017-06-22] MEDS ORDERED: TPN 1,000 ML IV SCH (15:00)
[2017-06-22] MEDS: LEVOFLOXACIN 750MG/D5W (PMX) 150 ML IVPB SCH (15:50)
[2017-06-22] MEDS ORDERED: LIDOCAINE 1% (MPF) 5 ML VIAL SC ONE (16:30)
--- NOTE | 2017-06-22 17:12 | PN ---
DATE: 06/22/2017 SUBJECTIVE: States that has had several bowel movements today. No nausea, no vomiting. No abdominal pain. No fever. OBJECTIVE: Awake, alert, oriented x3. Appears depressed. Vital signs: Temperature 98.8. Heart rate is 70 regular, respirations 17, blood pressure 104/56, saturation 98 percent room air. LABS: WBC 4900, with 60 percent neutrophils. Hemoglobin 10.9, hematocrit 32.2. Platelet count 323, within normal limits. Chemistry: Sodium 139, potassium 4.2, BUN 10, creatinine 0.9. Microbiology: The preliminary report of the culture from the sacral aspirate is negative. Also, Gram stain has not shown any bacteria so far. Imaging: Abdominal x-ray yesterday at 4 o'clock showed large amount of contrast in the colon and rectosigmoid from the previous of prior study. For this reason, the limited water- soluble contrast enema could not be performed and was delayed. ASSESSMENT AND PLAN: This is a 57-year-old male who had a laparotomy, very low anterior resection of the cancer of the rectosigmoid on 06/06/2017. Postop course was slightly complicated with some leukocytosis and fever. On the third day, he was started on antibiotic and patient responded rapidly and then on the eighth day when the patient had bowel movements, we got a CT scan to make sure that there was no evidence of pathology to start patient on regular diet. It showed presacral fluid accumulation. There was no gross evidence of the leakage, so we started the patient on regular diet. Within 48 hours, again patient has fever and leukocytosis. So the patient was kept NPO and request was sent to Radiology to drain percutaneous drainage of the presacral fluid collection which was drained by Dr. Yadav, and he believes it was purulent, but so far, after 48 hours, the specimen which has been sent for culture and Gram stain has not shown any evidence of bacteria no gross. Yesterday, per Dr. Thayer' suggestion, the plan was to do limited Gastrografin enema to see if there is any leakage or not, but unfortunately there was a large amount of contrast in the colon and rectosigmoid and they could not do it, so we started the patient on clear liquids and mineral oil to stimulate and speed up the evacuation of the colon from contrast. Tomorrow morning we will get a KUB to see if the contrast has been eliminated. Then we will request performance of the limited Gastrografin enema by placement of the Witt catheter in the anal canal and gently instilling the Gastrografin because this is the technique to show the leakage. If it shows the leakage, then the patient is a candidate to have a diverting loop ileostomy. Otherwise, we will proceed with starting diet for the patient. Dictated By: Farrukh Ni MD /paola/alena /Document#: [id number]
--- NOTE | 2017-06-22 18:29 | CONS ---
Date/Time of Note Date/Time of Note DATE: 06/22/17 TIME: 18:28 Assessment/Plan Assessment/Plan Chief Complaint/Hosp Course - Post-op SIRS with fever and leukocytosis - resolved - Rectal cancer, s/p laparotomy and low anterior colon resection 06/06/2017 - Abdominal incisional wound growing E. Coli 06/14/2017 - Abdominal incisional wound culture- 06/21/2017 WOUND CULTURE Preliminary No growth after 1 day no growth in one day growing , Gram stain pending - Pelvic abscess, s/p CT guided drainage catheter placement 06/20/2017 - Normocytic anemia - Near syncope likely vasovagal 06/20/2017- none reported today Recommendations: - Follow up aerobic/anaerobic cxs from most recent CT guided drainage - Continue Levaquin and Flagyl (06/18/2017-) - Agree with IVF bolus - Continue local wound care Problems: Consultation Date/Type/Reason Admit Date/Time Jun 06, 2017 at 05:15 Type of Consultation: Infectious Disease Exam/Review of Systems Vital Signs Vitals Vital Signs Date Time Temp Pulse Resp B/P Pulse Ox O2 Delivery O2 Flow Rate FiO2 06/22/17 14:00 97.8 70 18 120/66 96 06/22/17 01:57 Room Air 06/20/17 01:03 21 Intake and Output 06/21/17 06/21/17 06/22/17 15:00 23:00 07:00 Intake Total 100 ml 1250 ml 1350 ml Output Total 1155 ml 930 ml Balance 100 ml 95 ml 420 ml Exam Constitutional: alert, oriented, well developed Psych: nl mood/affect, no complaints Head: atraumatic, normocephalic Eyes: EOMI, PERRL, nl conjunctiva, nl lids, nl sclera ENMT: nl external ears & nose, nl lips & teeth, nl nasal mucosa & septum Neck: non-tender, supple Respiratory: clear to auscultation, normal air movement Cardiovascular: nl pulses, regular rate and rhythm Gastrointestinal: nl liver, spleen, non-tender, soft Results Result Diagram: 06/22/17 0458 06/22/17 0458 Results 24 hrs Laboratory Tests Test 06/22/17 04:58 White Blood Count 4.9 # Red Blood Count 3.65 L Hemoglobin 10.9 L Hematocrit 32.2 L Mean Corpuscular Volume 88.2 Mean Corpuscular Hemoglobin 29.9 Mean Corpuscular Hemoglobin Concent 33.9 Red Cell Distribution Width 13.0 Platelet Count 323 Mean Platelet Volume 8.7 Neutrophils % 60.0 Lymphocytes % 26.6 Monocytes % 10.2 Eosinophils % 2.0 Basophils % 0.6 Nucleated Red Blood Cells % 0.0 Neutrophils # 3.0 Lymphocytes # 1.3 Monocytes # 0.5 Eosinophils # 0.1 Basophils # 0.0 Nucleated Red Blood Cells # 0.0 Sodium Level 139 Potassium Level 4.2 Chloride Level 103 Carbon Dioxide Level 28 Anion Gap 12 Blood Urea Nitrogen 10 Creatinine 0.90 Glucose Level 120 Calcium Level 9.4 Medications Medications Current Medications Ondansetron HCl (Zofran Inj) 4 mg Q6H PRN IV NAUSEA AND/OR VOMITING Last administered on 06/22/17 10:06; Admin Dose 4 MG; Start 06/06/17 at 12:00 Morphine Sulfate 2 MG/HR CONTINUOUS RATE 2... Q4PCA IV ; Start 06/06/17 at 12:00 Potassium Chloride/Dextrose/ Sod Cl (D5-1/2ns + KCl 20 Meq) 1,000 ml @ 100 mls/ hr Q10H IV Last administered on 06/22/17 10:05; Admin Dose 100 MLS/HR; Start 06/06/17 at 11:32 Naloxone HCl (Narcan) 0.2 mg Q2M PRN IV FOR RESP RATE 8 OR LESS; Start 06/06/17 at 12:30 Phenol (Chloraseptic Throat [place]) 2 spray Q2H PRN MT SORE THROAT Last administered on 06/10/17 02:18; Admin Dose 2 SPRAY; Start 06/06/17 at 20:00 Morphine Sulfate (morphine) 2 mg Q1HWA PRN IV PAIN LEVEL 7-10 Last administered on 06/08/17 12:27; Admin Dose 2 MG; Start 06/07/17 at 01:30 Silver Sulfadiazine (Thermazene 1% 25 Gm) 1 applic BID TOP Last administered on 06/22/17 10:06; Admin Dose 1 APPLIC; Start 06/14/17 at 21:00 Acetaminophen 650 mg 650 mg Q6H PRN PO PAIN AND OR ELEVATED TEMP Last administered on 06/17/17 22:39; Admin Dose 650 MG; Start 06/16/17 at 16:00 Metronidazole 100 ml @ 100 mls/hr Q6 IVPB Last administered on 06/22/17 18:09 ; Admin Dose 100 MLS/HR; Start 06/18/17 at 18:00 Levofloxacin/ Dextrose (Levaquin 750 Mg/ D5W 150 ml (Pmx)) 150 ml @ 100 mls/hr Q24H IVPB Last administered on 06/22/17 15:50; Admin Dose 100 MLS/HR; Start at 14:00 Mineral Oil (Mineral Oil) 50 ml Q8 PO Last administered on 06/22/17 06:03; Admin Dose 50 ML; Start 06/21/17 at 22:00 Lorazepam (Ativan) 0.5 mg Q6H PRN PO ANXIETY Last administered on 06/21/17 23: 56; Admin Dose 0.5 MG; Start 06/21/17 at 21:00 Escitalopram Oxalate 10 mg 10 mg DAILY PO Last administered on 06/22/17 13:13 ; Admin Dose 10 MG; Start 06/22/17 at 12:30 Total Parenteral Nutrition (Tpn) 1,000 ml @ 75 mls/hr [id number] IV ; Start at 15:00; Status UNCHARLENE MAHONEY MD Jun 22, 2017 18:29
--- NOTE | 2017-06-22 18:59 | PN ---
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 Plan of care discussed with Dr. Plunkett Subjective 24 Hr Interval Summary Free Text/Dictation patient complaints of generalized weakness, afebrile, vss at bed side- all Qs answered. Constitutional: requiring IVF, requiring O2 Respiratory: no complaints Cardiovascular: no complaints Gastrointestinal: no complaints Genitourinary: no complaints Exam/Review of Systems Vital Signs Vitals Vital Signs Date Time Temp Pulse Resp B/P Pulse Ox O2 Delivery O2 Flow Rate FiO2 06/22/17 14:00 97.8 70 18 120/66 96 06/22/17 01:57 Room Air 06/20/17 01:03 21 Intake and Output 06/21/17 06/21/17 06/22/17 15:00 23:00 07:00 Intake Total 100 ml 1250 ml 1350 ml Output Total 1155 ml 930 ml Balance 100 ml 95 ml 420 ml Exam Constitutional: alert, oriented Respiratory: clear to auscultation, normal air movement Cardiovascular: nl pulses, regular rate and rhythm Gastrointestinal: non-tender, soft Musculoskeletal: nl extremities to inspection Extremities: normal pulses Neurological: ORACLE EBS ARCHITECT II-XII intact, nl mental status Results Result Diagram: 06/22/17 0458 06/22/17 0458 Results 24 hrs Laboratory Tests Test 06/22/17 04:58 White Blood Count 4.9 # Red Blood Count 3.65 L Hemoglobin 10.9 L Hematocrit 32.2 L Mean Corpuscular Volume 88.2 Mean Corpuscular Hemoglobin 29.9 Mean Corpuscular Hemoglobin Concent 33.9 Red Cell Distribution Width 13.0 Platelet Count 323 Mean Platelet Volume 8.7 Neutrophils % 60.0 Lymphocytes % 26.6 Monocytes % 10.2 Eosinophils % 2.0 Basophils % 0.6 Nucleated Red Blood Cells % 0.0 Neutrophils # 3.0 Lymphocytes # 1.3 Monocytes # 0.5 Eosinophils # 0.1 Basophils # 0.0 Nucleated Red Blood Cells # 0.0 Sodium Level 139 Potassium Level 4.2 Chloride Level 103 Carbon Dioxide Level 28 Anion Gap 12 Blood Urea Nitrogen 10 Creatinine 0.90 Glucose Level 120 Calcium Level 9.4 Medications Medications Current Medications Ondansetron HCl (Zofran Inj) 4 mg Q6H PRN IV NAUSEA AND/OR VOMITING Last administered on 06/22/17 10:06; Admin Dose 4 MG; Start 06/06/17 at 12:00 Morphine Sulfate 2 MG/HR CONTINUOUS RATE 2... Q4PCA IV ; Start 06/06/17 at 12:00 Potassium Chloride/Dextrose/ Sod Cl (D5-1/2ns + KCl 20 Meq) 1,000 ml @ 100 mls/ hr Q10H IV Last administered on 06/22/17 10:05; Admin Dose 100 MLS/HR; Start 06/06/17 at 11:32 Naloxone HCl (Narcan) 0.2 mg Q2M PRN IV FOR RESP RATE 8 OR LESS; Start 06/06/17 at 12:30 Phenol (Chloraseptic Throat [place]) 2 spray Q2H PRN MT SORE THROAT Last administered on 06/10/17 02:18; Admin Dose 2 SPRAY; Start 06/06/17 at 20:00 Morphine Sulfate (morphine) 2 mg Q1HWA PRN IV PAIN LEVEL 7-10 Last administered on 06/08/17 12:27; Admin Dose 2 MG; Start 06/07/17 at 01:30 Silver Sulfadiazine (Thermazene 1% 25 Gm) 1 applic BID TOP Last administered on 06/22/17 10:06; Admin Dose 1 APPLIC; Start 06/14/17 at 21:00 Acetaminophen 650 mg 650 mg Q6H PRN PO PAIN AND OR ELEVATED TEMP Last administered on 06/17/17 22:39; Admin Dose 650 MG; Start 06/16/17 at 16:00 Metronidazole 100 ml @ 100 mls/hr Q6 IVPB Last administered on 06/22/17 18:09 ; Admin Dose 100 MLS/HR; Start 06/18/17 at 18:00 Levofloxacin/ Dextrose (Levaquin 750 Mg/ D5W 150 ml (Pmx)) 150 ml @ 100 mls/hr Q24H IVPB Last administered on 06/22/17 15:50; Admin Dose 100 MLS/HR; Start at 14:00 Mineral Oil (Mineral Oil) 50 ml Q8 PO Last administered on 06/22/17 06:03; Admin Dose 50 ML; Start 06/21/17 at 22:00 Lorazepam (Ativan) 0.5 mg Q6H PRN PO ANXIETY Last administered on 06/21/17 23: 56; Admin Dose 0.5 MG; Start 06/21/17 at 21:00 Escitalopram Oxalate 10 mg 10 mg DAILY PO Last administered on 06/22/17 13:13 ; Admin Dose 10 MG; Start 06/22/17 at 12:30 Total Parenteral Nutrition (Tpn) 1,000 ml @ 75 mls/hr [id number] IV ; Start at 15:00; Status KERRY RINCON Jun 22, 2017 18:59
[2017-06-22 19:56] VITALS: BP 119/77; RESP 20
[2017-06-23] VITALS (12 sets, daily range): BP systolic 117–153; BP diastolic 66–87; PULSE 59–91; RESP 16–20
[2017-06-23] MEDS: metroNIDAZOLE 500 MG/NS (PMX) 100 ML IVPB SCH ×4 (00:01→17:33)
[2017-06-23 05:10] LABS: BASOPHILS % 0.5 % (0.0-2.0); EOSINOPHILS # 0.1 10^3/ul (0.0-0.5); EOSINOPHILS % 1.2 % (0.0-7.0); HEMATOCRIT 31.9 % (42.0-52.0); HEMOGLOBIN 10.5 g/dl (14.0-18.0); LYMPHOCYTES # 1.3 10^3/ul (0.8-2.9); LYMPHOCYTES % 22.7 % (15.0-51.0); MEAN CORPUSCULAR HEMOGLOBIN 28.8 pg (29.0-33.0); MEAN CORPUSCULAR HGB CONC 32.9 g/dl (32.0-37.0); MEAN CORPUSCULAR VOLUME 87.6 fl (82.0-101.0); MEAN PLATELET VOLUME 8.9 fl (7.4-10.4); MONOCYTE # 0.5 10^3/ul (0.3-0.9); MONOCYTES % 8.8 % (0.0-11.0); NEUTROPHIL # 3.8 10^3/ul (1.6-7.5); NEUTROPHILS % 66.3 % (39.0-77.0); PLATELET COUNT 312 10^3/UL (140-415); RED BLOOD COUNT 3.64 10^6/ul (4.70-6.10); WHITE BLOOD COUNT 5.8 10^3/ul (4.8-10.8)
[2017-06-23 05:17] LABS: CALCIUM 9.3 mg/dl (8.4-10.2); CREATININE 0.77 mg/dl (0.61-1.24); POTASSIUM 4.3 mmol/L (3.5-5.1)
[2017-06-23] MEDS: MINERAL OIL 30ML CUP PO SCH ×3 (05:49→22:00)
[2017-06-23] MEDS: ESCITALOPRAM 10 MG TAB PO SCH (08:18)
--- NOTE | 2017-06-23 09:20 | RADRPT ---
PROCEDURE: XR Abdomen. CLINICAL INDICATION: Abdomen pain. TECHNIQUE: AP supine abdomen x-ray. COMPARISON: 06/21/2017. FINDINGS: Moderate contrast is present throughout the colon and rectosigmoid, less than seen previously. Verti aleena midline skin shaheen are noted in the lower abdomen and pelvis. Surgical shaheen are present ove rlying the rectosigmoid region. There is no evidence of obstruction. A drainage catheter is noted in the pelvis entering via the left side. The osseus structures are unremarkable. IMPRESSION: 1. Slightly less contrast present in the colon when compared with the prior abdomen radiograph. 2. No other new abnormality. RPTAT: QQ .Mickey Yadav MD, MD Date Time Electronically viewed and signed by .Mickey Yadav MD, on 06/23/2017 09:20 .R/
[2017-06-23] MEDS: SILVER SULFADIAZINE 1% 25 GM CR TOP SCH ×2 (12:33→22:42)
--- NOTE | 2017-06-23 12:48 | CONS ---
Date/Time of Note Date/Time of Note DATE: 06/23/17 TIME: 12:45 Assessment/Plan Assessment/Plan Chief Complaint/Hosp Course - Post-op SIRS with fever and leukocytosis - resolved - Rectal cancer, s/p laparotomy and low anterior colon resection 06/06/2017 - Abdominal incisional wound growing E. Coli 06/14/2017 - Pelvic abscess, s/p CT guided drainage catheter placement 06/20/2017, wound cx NTD - Normocytic anemia - Near syncope likely vasovagal 06/20/2017 - CP - troponin x2 negative Recommendations: - Pending: aerobic/anaerobic cxs from CT guided drainage (NTD) - Continue Levaquin and Flagyl (06/18/2017-) until fluid collection resolves - Continue local wound care Management d/w patient, RN Helen, and Dr. Hercules Problems: Consultation Date/Type/Reason Admit Date/Time Jun 06, 2017 at 05:15 Initial Consult Date 06/11/17 Type of Consultation: Infectious Disease 24 HR Interval Summary Free Text/Dictation Pt had acute episode of left sided CP and was transferred to telemetry. Troponin x2 negative and CP has resolved. Denies SOB, abd pain, n/v/d, dysuria, or dizziness. Diet advanced to Full liquids. Exam/Review of Systems Vital Signs Vitals Vital Signs Date Time Temp Pulse Resp B/P Pulse Ox O2 Delivery O2 Flow Rate FiO2 06/23/17 12:06 63 06/23/17 11:45 98.0 16 125/81 97 06/23/17 04:10 Room Air 06/20/17 01:03 21 Intake and Output 06/22/17 06/22/17 06/23/17 15:00 23:00 07:00 Intake Total 100 ml 1950 ml 1800 ml Output Total 1500 ml 1630 ml Balance 100 ml 450 ml 170 ml Exam Constitutional: alert, oriented, well developed Head: atraumatic, normocephalic Eyes: nl conjunctiva, nl lids ENMT: nl external ears & nose Neck: supple Respiratory: clear to auscultation, normal air movement Cardiovascular: nl pulses, regular rate and rhythm Gastrointestinal: soft, non-tender, other (abdominal ML dressing c/d/i; external drainage catheter/[place] intact), soft Musculoskeletal: nl extremities to inspection Extremities: normal pulses Neurological: nl mental status, nl speech, nl strength Skin: nl turgor No rash or lesions Results Result Diagram: 06/23/17 0442 06/23/17 0443 Results 24 hrs Laboratory Tests Test 06/23/17 04:42 06/23/17 04:43 06/23/17 11:01 White Blood Count 5.8 Red Blood Count 3.64 L Hemoglobin 10.5 L Hematocrit 31.9 L Mean Corpuscular Volume 87.6 Mean Corpuscular Hemoglobin 28.8 L Mean Corpuscular Hemoglobin Concent 32.9 Red Cell Distribution Width 13.0 Platelet Count 312 Mean Platelet Volume 8.9 Neutrophils % 66.3 Lymphocytes % 22.7 Monocytes % 8.8 Eosinophils % 1.2 Basophils % 0.5 Nucleated Red Blood Cells % 0.0 Neutrophils # 3.8 Lymphocytes # 1.3 Monocytes # 0.5 Eosinophils # 0.1 Basophils # 0.0 Nucleated Red Blood Cells # 0.0 Troponin I < 0.012 < 0.012 Sodium Level 138 Potassium Level 4.3 Chloride Level 105 Carbon Dioxide Level 25 Anion Gap 12 Blood Urea Nitrogen 7 Creatinine 0.77 Glucose Level 129 Calcium Level 9.3 Medications Medications Current Medications Ondansetron HCl 4 mg 4 mg Q6H PRN IV NAUSEA AND/OR VOMITING Last administered on 06/22/17 10:06; Admin Dose 4 MG; Start 06/06/17 at 12:00 Potassium Chloride/Dextrose/ Sod Cl (D5-1/2ns + KCl 20 Meq) 1,000 ml @ 100 mls/ hr Q10H IV Last administered on 06/23/17 00:00; Admin Dose 100 MLS/HR; Start 06/06/17 at 11:32 Naloxone HCl (Narcan) 0.2 mg Q2M PRN IV FOR RESP RATE 8 OR LESS; Start 06/06/17 at 12:30 Phenol (Chloraseptic Throat [place]) 2 spray Q2H PRN MT SORE THROAT Last administered on 06/10/17 02:18; Admin Dose 2 SPRAY; Start 06/06/17 at 20:00 Morphine Sulfate (morphine) 2 mg Q1HWA PRN IV PAIN LEVEL 7-10 Last administered on 06/08/17 12:27; Admin Dose 2 MG; Start 06/07/17 at 01:30 Silver Sulfadiazine (Thermazene 1% 25 Gm) 1 applic BID TOP Last administered on 06/23/17 12:33; Admin Dose 1 APPLIC; Start 06/14/17 at 21:00 Acetaminophen 650 mg 650 mg Q6H PRN PO PAIN AND OR ELEVATED TEMP Last administered on 06/17/17 22:39; Admin Dose 650 MG; Start 06/16/17 at 16:00 Metronidazole 100 ml @ 100 mls/hr Q6 IVPB Last administered on 06/23/17 12:33 ; Admin Dose 100 MLS/HR; Start 06/18/17 at 18:00 Levofloxacin/ Dextrose (Levaquin 750 Mg/ D5W 150 ml (Pmx)) 150 ml @ 100 mls/hr Q24H IVPB Last administered on 06/22/17 15:50; Admin Dose 100 MLS/HR; Start at 14:00 Mineral Oil (Mineral Oil) 50 ml Q8 PO Last administered on 06/22/17 06:03; Admin Dose 50 ML; Start 06/21/17 at 22:00 Lorazepam (Ativan) 0.5 mg Q6H PRN PO ANXIETY Last administered on 06/21/17 23: 56; Admin Dose 0.5 MG; Start 06/21/17 at 21:00 Escitalopram Oxalate 10 mg 10 mg DAILY PO Last administered on 06/23/17 08:18 ; Admin Dose 10 MG; Start 06/22/17 at 12:30 Total Parenteral Nutrition (Tpn) 1,000 ml @ 75 mls/hr [id number] IV ; Start at 15:00; Status UNV Procedures Procedures KUB 06/23/2017: 1. Slightly less contrast present in the colon when compared with the prior abdomen radiograph. 2. No other new abnormality. TIM SULLIVAN [employer] ATTENDANT Jun 23, 2017 12:48
--- NOTE | 2017-06-23 14:15 | PN ---
ALEX MOON 06/23/17 1415: Date/Time of Note Date/Time of Note DATE: 06/23/17 TIME: 14:12 Assessment/Plan VTE Prophylaxis VTE Prophylaxis Intervention: SCD's Lines/Catheters IV Catheter Type (from Nrs): Peripheral IV Urinary Cath still in place: No Assessment/Plan Chief Complaint/Hosp Course Patient complains of anxiety and insomnia overnight, denies any dizziness, complains of mild nausea however denies any emesis. Tolerates clear liquid diet. 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 Plan of care discussed with Dr. Plunkett Problems: Exam/Review of Systems Vital Signs Vitals Vital Signs Date Time Temp Pulse Resp B/P Pulse Ox O2 Delivery O2 Flow Rate FiO2 06/23/17 12:06 63 06/23/17 11:45 98.0 16 125/81 97 06/23/17 04:10 Room Air 06/20/17 01:03 21 Intake and Output 06/22/17 06/22/17 06/23/17 15:00 23:00 07:00 Intake Total 100 ml 1950 ml 1800 ml Output Total 1500 ml 1630 ml Balance 100 ml 450 ml 170 ml Exam Constitutional: alert Neck: supple Respiratory: normal air movement Cardiovascular: nl pulses Gastrointestinal: other (Surgical incision), soft, pelvic abscess drain Extremities: normal pulses Results Result Diagram: 06/23/17 0442 06/23/17 0443 Results 24 hrs Laboratory Tests Test 06/23/17 04:42 06/23/17 04:43 06/23/17 11:01 White Blood Count 5.8 Red Blood Count 3.64 L Hemoglobin 10.5 L Hematocrit 31.9 L Mean Corpuscular Volume 87.6 Mean Corpuscular Hemoglobin 28.8 L Mean Corpuscular Hemoglobin Concent 32.9 Red Cell Distribution Width 13.0 Platelet Count 312 Mean Platelet Volume 8.9 Neutrophils % 66.3 Lymphocytes % 22.7 Monocytes % 8.8 Eosinophils % 1.2 Basophils % 0.5 Nucleated Red Blood Cells % 0.0 Neutrophils # 3.8 Lymphocytes # 1.3 Monocytes # 0.5 Eosinophils # 0.1 Basophils # 0.0 Nucleated Red Blood Cells # 0.0 Troponin I < 0.012 < 0.012 Sodium Level 138 Potassium Level 4.3 Chloride Level 105 Carbon Dioxide Level 25 Anion Gap 12 Blood Urea Nitrogen 7 Creatinine 0.77 Glucose Level 129 Calcium Level 9.3 Medications Medications Current Medications Ondansetron HCl 4 mg 4 mg Q6H PRN IV NAUSEA AND/OR VOMITING Last administered on 06/22/17 10:06; Admin Dose 4 MG; Start 06/06/17 at 12:00 Potassium Chloride/Dextrose/ Sod Cl (D5-1/2ns + KCl 20 Meq) 1,000 ml @ 100 mls/ hr Q10H IV Last administered on 06/23/17 00:00; Admin Dose 100 MLS/HR; Start 06/06/17 at 11:32 Naloxone HCl (Narcan) 0.2 mg Q2M PRN IV FOR RESP RATE 8 OR LESS; Start 06/06/17 at 12:30 Phenol (Chloraseptic Throat [place]) 2 spray Q2H PRN MT SORE THROAT Last administered on 06/10/17 02:18; Admin Dose 2 SPRAY; Start 06/06/17 at 20:00 Morphine Sulfate (morphine) 2 mg Q1HWA PRN IV PAIN LEVEL 7-10 Last administered on 06/08/17 12:27; Admin Dose 2 MG; Start 06/07/17 at 01:30 Silver Sulfadiazine (Thermazene 1% 25 Gm) 1 applic BID TOP Last administered on 06/23/17 12:33; Admin Dose 1 APPLIC; Start 06/14/17 at 21:00 Acetaminophen 650 mg 650 mg Q6H PRN PO PAIN AND OR ELEVATED TEMP Last administered on 06/17/17 22:39; Admin Dose 650 MG; Start 06/16/17 at 16:00 Metronidazole 100 ml @ 100 mls/hr Q6 IVPB Last administered on 06/23/17 12:33 ; Admin Dose 100 MLS/HR; Start 06/18/17 at 18:00 Levofloxacin/ Dextrose (Levaquin 750 Mg/ D5W 150 ml (Pmx)) 150 ml @ 100 mls/hr Q24H IVPB Last administered on 06/22/17 15:50; Admin Dose 100 MLS/HR; Start at 14:00 Mineral Oil (Mineral Oil) 50 ml Q8 PO Last administered on 06/22/17 06:03; Admin Dose 50 ML; Start 06/21/17 at 22:00 Lorazepam (Ativan) 0.5 mg Q6H PRN PO ANXIETY Last administered on 06/21/17 23: 56; Admin Dose 0.5 MG; Start 06/21/17 at 21:00 Escitalopram Oxalate 10 mg 10 mg DAILY PO Last administered on 06/23/17 08:18 ; Admin Dose 10 MG; Start 06/22/17 at 12:30 Total Parenteral Nutrition (Tpn) 1,000 ml @ 75 mls/hr [id number] IV ; Start at 15:00; Status UNV KERRY RECINOS 06/24/17 1944: Assessment/Plan VTE Prophylaxis VTE Prophylaxis Intervention: other Assessment/Plan Assessment/Plan - Sigmoid colon cancer, 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 Plan of care discussed with Dr. Plunkett Subjective 24 Hr Interval Summary Free Text/Dictation eats soft food, tolerates well. no more anxious, feels better, at bed side - all Qs answered. Eyes: no complaints Respiratory: no complaints Cardiovascular: no complaints Gastrointestinal: no complaints Genitourinary: no complaints Musculoskeletal: no complaints Skin: no complaints Exam/Review of Systems Exam Constitutional: alert, oriented, well developed Respiratory: clear to auscultation, normal air movement Gastrointestinal: non-tender, other, soft Musculoskeletal: nl extremities to inspection Extremities: normal pulses Neurological: nl mental status, nl speech Results Result Diagram: 06/23/17 0442 06/23/17 0443 ALEX MOON Jun 23, 2017 14:15 KERRY RECINOS Jun 24, 2017 19:44
[2017-06-23] MEDS: LEVOFLOXACIN 750MG/D5W (PMX) 150 ML IVPB SCH (14:42)
[2017-06-23] MEDS: D5W-0.45 NACL + KCL 20 MEQ 1,000 ML IV SCH ×2 (14:42)
--- NOTE | 2017-06-23 15:26 | PN ---
DATE: 06/23/2017 SUBJECTIVE DATA: Patient has no special complain, patient is slightly anxious. Apparently, last night the patient had some chest pain and bradycardia. The patient was transferred to telemetry and evaluated. Troponin on 2 occasions 4 a.m. and at 11 a.m. was within normal limits. Now the patient does not have any more chest pain. Heart rate is 65, normal sinus rhythm. OBJECTIVE: GENERAL: Awake, alert, oriented x3. VITAL SIGNS: Temperature 98, heart rate 66, blood pressure 125/81. Pulse oximetry 97 percent. HEART: Regular rate, rhythm. LUNGS: Clear. ABDOMEN: Soft, not distended. Bowel sounds normal. EXTREMITIES: No pedal edema. LABORATORY AND DIAGNOSTIC DATA: Sodium 13, potassium, BUN, and creatinine within normal range. WBC 5800, with 66 percent neutrophils, hemoglobin 10.5, hematocrit 31.9. The pigtail drain in the patient's sacral area has drain in past 24 hours. This drainage appears in color is serosanguineous. Slightly bloody. The cultures and Gram stain. So far, negative. A drain was placed to sacral area [address] guidance. 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 Postop patient a complication of fever and leukocytosis. And postop a CT scan with collection in the sacral area. Eventually, that was drained 2 days ago. The culture and Gram stain from aspirate is negative so far. The patient has been on clear liquids. A Gastrografin upper GI with small-bowel follow-through done with CT scan did not reveal evidence of leak, but the suggestion was to perform Gastrografin enema in a special techniques with Witt catheter insertion to make sure there is no leakage. Unfortunately this could not be done in the past 2 days because of presence of contrast in the colon. Now we are trying to have the patient have a bowel movements, and as soon as the CT KUB shows that there is no more residual Gastrografin or contrast material left in the colon, that procedure is going to be done in radiology. Meanwhile, I am going to put the patient on full liquid diet today because the drainage does not look like fecal material so far. The patient is on antibiotic as well. Dictated By: Farrukh Ni MD /paola/evelyn /Document#: [id number] GEORGED
[2017-06-23] MEDS: ALPRAZOLAM 0.5 MG TAB PO SCH (16:20)
--- NOTE | 2017-06-23 16:35 | RADRPT ---
Vent Rate: 57 bpm RR Interval: 0 msec [place] Interval: 140 msec QRS Duration: 82 msec QT Interval: 418 msec QTC Interval: 406 msec P-R-T [place]: 36 - 46 - 61 degrees Sinus bradycardia Otherwise normal ECG Electronically Signed By: Eliseo Mcfadden [id number]
[2017-06-23] MEDS ORDERED: ALPRAZOLAM 0.5 MG TAB PO SCH (21:00)
[2017-06-24] VITALS (13 sets, daily range): BP systolic 113–136; BP diastolic 62–80; PULSE 60–84; RESP 16–18
[2017-06-24] MEDS: metroNIDAZOLE 500 MG/NS (PMX) 100 ML IVPB SCH ×5 (00:03→22:51)
[2017-06-24] MEDS: ALPRAZOLAM 0.5 MG TAB PO SCH ×3 (00:08→20:06)
[2017-06-24] MEDS: D5W-0.45 NACL + KCL 20 MEQ 1,000 ML IV SCH ×3 (04:50→18:29)
[2017-06-24] MEDS: MINERAL OIL 30ML CUP PO SCH ×3 (04:50→20:44)
[2017-06-24 06:31] LABS: BASOPHILS % 0.5 % (0.0-2.0); EOSINOPHILS # 0.1 10^3/ul (0.0-0.5); EOSINOPHILS % 1.1 % (0.0-7.0); HEMATOCRIT 31.2 % (42.0-52.0); HEMOGLOBIN 10.3 g/dl (14.0-18.0); LYMPHOCYTES # 1.5 10^3/ul (0.8-2.9); LYMPHOCYTES % 26.2 % (15.0-51.0); MEAN CORPUSCULAR HEMOGLOBIN 29.2 pg (29.0-33.0); MEAN CORPUSCULAR VOLUME 88.4 fl (82.0-101.0); MONOCYTE # 0.6 10^3/ul (0.3-0.9); MONOCYTES % 10.9 % (0.0-11.0); NEUTROPHIL # 3.4 10^3/ul (1.6-7.5); NEUTROPHILS % 60.4 % (39.0-77.0); PLATELET COUNT 281 10^3/UL (140-415); RED BLOOD COUNT 3.53 10^6/ul (4.70-6.10); WHITE BLOOD COUNT 5.6 10^3/ul (4.8-10.8)
[2017-06-24 07:00] LABS: CALCIUM 9.1 mg/dl (8.4-10.2); CREATININE 0.81 mg/dl (0.61-1.24); POTASSIUM 4.1 mmol/L (3.5-5.1)
[2017-06-24] MEDS: SILVER SULFADIAZINE 1% 25 GM CR TOP SCH ×2 (09:38→20:44)
[2017-06-24] MEDS: ESCITALOPRAM 10 MG TAB PO SCH (09:38)
--- NOTE | 2017-06-24 12:02 | PN ---
Date/Time of Note Date/Time of Note DATE: 06/24/17 TIME: 11:55 Assessment/Plan VTE Prophylaxis VTE Prophylaxis Intervention: ambulation, SCD's Lines/Catheters [facility] Peripheral IV Urinary Cath still in place: No Assessment/Plan Assessment/Plan 57 years old male status post laparotomy very low anterior resection of the cancer of the rectosigmoid and end-to-end anastomosis with staplers. Postop patient has had 2 episode of fever and a CT scan showed accumulation of the fluid presacrally. CT scan guided aspiration of the fluid has not grown any bacteria or has not shown any bacteria on Gram stain. CT scan with oral contrast Gastrografin at least once did not show evidence of leakage. But Dr. Aguirre prefers to have a Gastrografin enema through a Witt catheter to make sure there is no indication unfortunately they could not do it because the contrast is still was left in the colon so we are awaiting patient have bowel movements and clear the colon and repeat Gastrografin enema. Yesterday we evaluated the patient along with Dr. Aguirre considering that the fluid draining from pigtail catheter is not purulent and does not show any evidence of bowel content and is serosanguineous to a slightly bloody and the fact that patient also is afebrile and has been afebrile for a while and leukocytosis is normal decision was made to advance the diet to full liquid and then to soft diet today and watch the patient. Subjective 24 Hr Interval Summary Free Text/Dictation No new events overnight, no nausea no vomiting no fever no abdominal pain has had bowel movement has tolerated full liquid diet. Exam/Review of Systems Vital Signs Vitals Vital Signs Date Time Temp Pulse Resp B/P Pulse Ox O2 Delivery O2 Flow Rate FiO2 06/24/17 08:31 62 06/24/17 07:42 97.9 16 120/69 99 06/23/17 04:10 Room Air Intake and Output 06/23/17 06/23/17 06/24/17 15:00 23:00 07:00 Intake Total 870 ml 1700 ml Output Total 20 ml 1350 ml 1440 ml Balance -20 ml -480 ml 260 ml Exam Alert awake oriented 3 vital signs stable no fever. No leukocytosis electrolytes within normal limits. Heart regular lungs clear abdomen flat soft bowel sound normal. Pigtail drain which was placed presacral he has been draining about 50 cc of serosanguineous fluid in past 24 hours does not look purulent at all. All cultures which was sent to the radiology department for the aspirated presacral fluid so far is negative no bacteria on Gram stain. Results Result Diagram: 06/24/17 0558 06/24/17 0558 Results 24 hrs Laboratory Tests Test 06/23/17 17:27 06/24/17 05:58 Troponin I < 0.012 White Blood Count 5.6 Red Blood Count 3.53 L Hemoglobin 10.3 L Hematocrit 31.2 L Mean Corpuscular Volume 88.4 Mean Corpuscular Hemoglobin 29.2 Mean Corpuscular Hemoglobin Concent 33.0 Red Cell Distribution Width 13.0 Platelet Count 281 Mean Platelet Volume 9.0 Neutrophils % 60.4 Lymphocytes % 26.2 Monocytes % 10.9 Eosinophils % 1.1 Basophils % 0.5 Nucleated Red Blood Cells % 0.0 Neutrophils # 3.4 Lymphocytes # 1.5 Monocytes # 0.6 Eosinophils # 0.1 Basophils # 0.0 Nucleated Red Blood Cells # 0.0 Sodium Level 139 Potassium Level 4.1 Chloride Level 105 Carbon Dioxide Level 27 Anion Gap 11 Blood Urea Nitrogen 7 Creatinine 0.81 Glucose Level 105 Calcium Level 9.1 Medications Medications Current Medications Ondansetron HCl 4 mg 4 mg Q6H PRN IV NAUSEA AND/OR VOMITING Last administered on 06/22/17 10:06; Admin Dose 4 MG; Start 06/06/17 at 12:00 Potassium Chloride/Dextrose/ Sod Cl (D5-1/2ns + KCl 20 Meq) 1,000 ml @ 100 mls/ hr Q10H IV Last administered on 06/24/17 04:50; Admin Dose 100 MLS/HR; Start 06/06/17 at 11:32 Naloxone HCl (Narcan) 0.2 mg Q2M PRN IV FOR RESP RATE 8 OR LESS; Start 06/06/17 at 12:30 Phenol (Chloraseptic Throat [place]) 2 spray Q2H PRN MT SORE THROAT Last administered on 06/10/17 02:18; Admin Dose 2 SPRAY; Start 06/06/17 at 20:00 Morphine Sulfate (morphine) 2 mg Q1HWA PRN IV PAIN LEVEL 7-10 Last administered on 06/08/17 12:27; Admin Dose 2 MG; Start 06/07/17 at 01:30 Silver Sulfadiazine (Thermazene 1% 25 Gm) 1 applic BID TOP Last administered on 06/24/17 09:38; Admin Dose 1 APPLIC; Start 06/14/17 at 21:00 Acetaminophen 650 mg 650 mg Q6H PRN PO PAIN AND OR ELEVATED TEMP Last administered on 06/17/17 22:39; Admin Dose 650 MG; Start 06/16/17 at 16:00 Metronidazole 100 ml @ 100 mls/hr Q6 IVPB Last administered on 06/24/17 04:49 ; Admin Dose 100 MLS/HR; Start 06/18/17 at 18:00 Levofloxacin/ Dextrose (Levaquin 750 Mg/ D5W 150 ml (Pmx)) 150 ml @ 100 mls/hr Q24H IVPB Last administered on 06/23/17 14:42; Admin Dose 100 MLS/HR; Start at 14:00 Lorazepam (Ativan) 0.5 mg Q6H PRN PO ANXIETY Last administered on 06/21/17 23: 56; Admin Dose 0.5 MG; Start 06/21/17 at 21:00 Escitalopram Oxalate 10 mg 10 mg DAILY PO Last administered on 06/24/17 09:38 ; Admin Dose 10 MG; Start 06/22/17 at 12:30 Total Parenteral Nutrition (Tpn) 1,000 ml @ 75 mls/hr [id number] IV ; Start at 15:00; Status UNV Mineral Oil (Mineral Oil) 30 ml Q8 PO Last administered on 06/24/17 04:50; Admin Dose 30 ML; Start 06/23/17 at 16:00 Alprazolam (Xanax) 0.5 mg BID PO Last administered on 06/24/17 09:38; Admin Dose 0.5 MG; Start 06/23/17 at 16:00 ISAMAR GODINEZ MD Jun 24, 2017 12:02
[2017-06-24] MEDS: LEVOFLOXACIN 750MG/D5W (PMX) 150 ML IVPB SCH (14:29)
--- NOTE | 2017-06-24 18:09 | CONS ---
Date/Time of Note Date/Time of Note DATE: 06/24/17 TIME: 18:08 Assessment/Plan Assessment/Plan Chief Complaint/Hosp Course - Post-op SIRS with fever and leukocytosis - resolved - Rectal cancer, s/p laparotomy and low anterior colon resection 06/06/2017 - Abdominal incisional wound growing E. Coli 06/14/2017 - Pelvic abscess, s/p CT guided drainage catheter placement 06/20/2017, wound cx NTD - Normocytic anemia - Near syncope likely vasovagal 06/20/2017 - CP - troponin x2 negative Recommendations: - Pending: aerobic/anaerobic cxs from CT guided drainage (NTD) - Continue Levaquin and Flagyl (06/18/2017-) until fluid collection resolves - Continue local wound care Problems: Consultation Date/Type/Reason Admit Date/Time Jun 06, 2017 at 05:15 Type of Consultation: Infectious Disease Exam/Review of Systems Vital Signs Vitals Vital Signs Date Time Temp Pulse Resp B/P Pulse Ox O2 Delivery O2 Flow Rate FiO2 06/24/17 16:27 97.9 71 16 116/74 98 06/24/17 09:15 21 06/23/17 04:10 Room Air Intake and Output 06/23/17 06/23/17 06/24/17 15:00 23:00 07:00 Intake Total 870 ml 1700 ml Output Total 20 ml 1350 ml 1440 ml Balance -20 ml -480 ml 260 ml Results Result Diagram: 06/24/17 0558 06/24/17 0558 Results 24 hrs Laboratory Tests Test 06/24/17 05:58 White Blood Count 5.6 Red Blood Count 3.53 L Hemoglobin 10.3 L Hematocrit 31.2 L Mean Corpuscular Volume 88.4 Mean Corpuscular Hemoglobin 29.2 Mean Corpuscular Hemoglobin Concent 33.0 Red Cell Distribution Width 13.0 Platelet Count 281 Mean Platelet Volume 9.0 Neutrophils % 60.4 Lymphocytes % 26.2 Monocytes % 10.9 Eosinophils % 1.1 Basophils % 0.5 Nucleated Red Blood Cells % 0.0 Neutrophils # 3.4 Lymphocytes # 1.5 Monocytes # 0.6 Eosinophils # 0.1 Basophils # 0.0 Nucleated Red Blood Cells # 0.0 Sodium Level 139 Potassium Level 4.1 Chloride Level 105 Carbon Dioxide Level 27 Anion Gap 11 Blood Urea Nitrogen 7 Creatinine 0.81 Glucose Level 105 Calcium Level 9.1 Medications Medications Current Medications Ondansetron HCl 4 mg 4 mg Q6H PRN IV NAUSEA AND/OR VOMITING Last administered on 06/22/17 10:06; Admin Dose 4 MG; Start 06/06/17 at 12:00 Potassium Chloride/Dextrose/ Sod Cl (D5-1/2ns + KCl 20 Meq) 1,000 ml @ 100 mls/ hr Q10H IV Last administered on 06/24/17 04:50; Admin Dose 100 MLS/HR; Start 06/06/17 at 11:32 Naloxone HCl (Narcan) 0.2 mg Q2M PRN IV FOR RESP RATE 8 OR LESS; Start 06/06/17 at 12:30 Phenol (Chloraseptic Throat [place]) 2 spray Q2H PRN MT SORE THROAT Last administered on 06/10/17 02:18; Admin Dose 2 SPRAY; Start 06/06/17 at 20:00 Morphine Sulfate (morphine) 2 mg Q1HWA PRN IV PAIN LEVEL 7-10 Last administered on 06/08/17 12:27; Admin Dose 2 MG; Start 06/07/17 at 01:30 Silver Sulfadiazine (Thermazene 1% 25 Gm) 1 applic BID TOP Last administered on 06/24/17 09:38; Admin Dose 1 APPLIC; Start 06/14/17 at 21:00 Acetaminophen 650 mg 650 mg Q6H PRN PO PAIN AND OR ELEVATED TEMP Last administered on 06/17/17 22:39; Admin Dose 650 MG; Start 06/16/17 at 16:00 Metronidazole 100 ml @ 100 mls/hr Q6 IVPB Last administered on 06/24/17 12:49 ; Admin Dose 100 MLS/HR; Start 06/18/17 at 18:00 Levofloxacin/ Dextrose (Levaquin 750 Mg/ D5W 150 ml (Pmx)) 150 ml @ 100 mls/hr Q24H IVPB Last administered on 06/24/17 14:29; Admin Dose 100 MLS/HR; Start at 14:00 Lorazepam (Ativan) 0.5 mg Q6H PRN PO ANXIETY Last administered on 06/21/17 23: 56; Admin Dose 0.5 MG; Start 06/21/17 at 21:00 Escitalopram Oxalate 10 mg 10 mg DAILY PO Last administered on 06/24/17 09:38 ; Admin Dose 10 MG; Start 06/22/17 at 12:30 Total Parenteral Nutrition (Tpn) 1,000 ml @ 75 mls/hr [id number] IV ; Start at 15:00; Status UNV Mineral Oil (Mineral Oil) 30 ml Q8 PO Last administered on 06/24/17 04:50; Admin Dose 30 ML; Start 06/23/17 at 16:00 Alprazolam (Xanax) 0.5 mg BID PO Last administered on 06/24/17 09:38; Admin Dose 0.5 MG; Start 06/23/17 at 16:00 CHARLENE SCHAEFER MD Jun 24, 2017 18:09
[2017-06-25] VITALS (11 sets, daily range): BP systolic 115–130; BP diastolic 77–79; PULSE 54–77; RESP 14–19
[2017-06-25] MEDS: metroNIDAZOLE 500 MG/NS (PMX) 100 ML IVPB SCH ×4 (05:25→22:54)
[2017-06-25] MEDS: MINERAL OIL 30ML CUP PO SCH ×3 (05:27→20:45)
[2017-06-25 08:31] LABS: BASOPHILS % 0.7 % (0.0-2.0); EOSINOPHILS # 0.1 10^3/ul (0.0-0.5); EOSINOPHILS % 1.3 % (0.0-7.0); HEMATOCRIT 33.2 % (42.0-52.0); LYMPHOCYTES # 1.5 10^3/ul (0.8-2.9); LYMPHOCYTES % 28.4 % (15.0-51.0); MEAN CORPUSCULAR HEMOGLOBIN 29.4 pg (29.0-33.0); MEAN CORPUSCULAR HGB CONC 33.1 g/dl (32.0-37.0); MEAN CORPUSCULAR VOLUME 88.8 fl (82.0-101.0); MEAN PLATELET VOLUME 9.2 fl (7.4-10.4); MONOCYTE # 0.6 10^3/ul (0.3-0.9); MONOCYTES % 10.6 % (0.0-11.0); NEUTROPHIL # 3.1 10^3/ul (1.6-7.5); NEUTROPHILS % 58.6 % (39.0-77.0); PLATELET COUNT 271 10^3/UL (140-415); RED BLOOD COUNT 3.74 10^6/ul (4.70-6.10); RED CELL DISTRIBUTION WIDTH 13.2 % (11.5-14.5); WHITE BLOOD COUNT 5.4 10^3/ul (4.8-10.8)
[2017-06-25 08:53] LABS: CALCIUM 9.3 mg/dl (8.4-10.2); CREATININE 0.91 mg/dl (0.61-1.24); POTASSIUM 3.9 mmol/L (3.5-5.1)
[2017-06-25] MEDS ORDERED: TPN 1,000 ML IV SCH (09:00)
[2017-06-25] MEDS: SILVER SULFADIAZINE 1% 25 GM CR TOP SCH ×2 (09:25→20:46)
[2017-06-25] MEDS: ALPRAZOLAM 0.5 MG TAB PO SCH ×2 (09:25→20:45)
[2017-06-25] MEDS: D5W-0.45 NACL + KCL 20 MEQ 1,000 ML IV SCH ×3 (09:25→22:54)
[2017-06-25] MEDS: ESCITALOPRAM 10 MG TAB PO SCH (09:25)
[2017-06-25] MEDS: LEVOFLOXACIN 750MG/D5W (PMX) 150 ML IVPB SCH (14:00)
--- NOTE | 2017-06-25 14:24 | PN ---
DATE: 06/25/2017 SUBJECTIVE: States that they have started him on some anti anxiety medication but he does not like it because apparently it gave him some kind of reaction like a convulsion or something like this. He cannot explain it. He has had bowel movement today and last night. Appetite is not good. No nausea, no vomiting, no fever. OBJECTIVE: GENERAL: Awake, and oriented x3. Appears cool and calm. VITAL SIGNS: Temperature 97.4, heart rate 64, respiration 18, blood pressure 140/79, saturation 98 percent room air. LABORATORY AND DIAGNOSTIC DATA: WBC 5400 with 58 percent neutrophils. Chemistry within normal limits; BUN, creatinine, sodium, potassium. The patient drain from the sacral area was draining only 40 mL in the past 24 hours and the remaining in the back wound is serosanguineous, more sanguinous but it does not appear purulent. MICROBIOLOGY: All the cultures blood, urine, and also from the sacral wound drainage has been negative so far. ASSESSMENT AND PLAN: A 57-year-old gentleman with carcinoma of the rectosigmoid junction who underwent laparotomy and low anterior resection of rectosigmoid colon and anastomosis. Postoperatively a couple of times he was running fever and leukocytosis. Has been started on antibiotic. CT scan revealed presence of presacral fluid accumulation. Eventually drainage was done and was reported by Radiology that was purulent, but the culture has been negative. Gram stain has been negative from that specimen and the pigtail drainage does not appear to be purulent as was mentioned, but is serosanguineous to sanguinous in nature. The patient has been tolerating full liquid diet, started on soft diet yesterday. No recurrence of the leukocytosis or fever. There is little doubt that maybe there is a leak or not so, the only alternative is to do a Gastrografin enema to find out if there is any leakage. This was supposed to be done few days ago but the contrast in the rectum prevented from doing that, so they are waiting for the contrast from the whole colon and rectum to be cleared. Hopefully by tomorrow, we will get a KUB and can order the Gastrografin via injection with Witt catheter very gently to make sure if there is any leakage or not. Dictated By: Farrukh Ni MD /paola/parrish /Document#: [id number]
--- NOTE | 2017-06-25 16:15 | PN ---
Date/Time of Note Date/Time of Note DATE: 06/25/17 TIME: 16:14 Assessment/Plan VTE Prophylaxis VTE Prophylaxis Intervention: other Lines/Catheters [facility] Type [facility] Peripheral IV Urinary Cath still in place: No Assessment/Plan Assessment/Plan Patient complains of anxiety and insomnia overnight, denies any dizziness, complains of mild nausea however denies any emesis. Tolerates clear liquid diet. 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 Plan of care discussed with Dr. Plunkett Subjective 24 Hr Interval Summary Respiratory: no complaints Cardiovascular: no complaints Gastrointestinal: no complaints Musculoskeletal: no complaints Exam/Review of Systems Vital Signs Vitals Vital Signs Date Time Temp Pulse Resp B/P Pulse Ox O2 Delivery O2 Flow Rate FiO2 06/25/17 15:50 98.2 61 18 118/79 97 06/25/17 01:26 21 06/23/17 04:10 Room Air Intake and Output 06/24/17 06/24/17 06/25/17 15:00 23:00 07:00 Intake Total 1500 ml Output Total 1200 ml Balance 300 ml Exam Constitutional: alert, oriented Psych: nl mood/affect Respiratory: clear to auscultation, normal air movement Cardiovascular: nl pulses, regular rate and rhythm Gastrointestinal: non-tender, soft Musculoskeletal: nl extremities to inspection Extremities: normal pulses Neurological: nl mental status, nl speech Results Result Diagram: 06/25/1713 06/25/17 0713 Results 24 hrs Laboratory Tests Test 06/25/17 07:13 White Blood Count 5.4 Red Blood Count 3.74 L Hemoglobin 11.0 L Hematocrit 33.2 L Mean Corpuscular Volume 88.8 Mean Corpuscular Hemoglobin 29.4 Mean Corpuscular Hemoglobin Concent 33.1 Red Cell Distribution Width 13.2 Platelet Count 271 Mean Platelet Volume 9.2 Neutrophils % 58.6 Lymphocytes % 28.4 Monocytes % 10.6 Eosinophils % 1.3 Basophils % 0.7 Nucleated Red Blood Cells % 0.0 Neutrophils # 3.1 Lymphocytes # 1.5 Monocytes # 0.6 Eosinophils # 0.1 Basophils # 0.0 Nucleated Red Blood Cells # 0.0 Sodium Level 139 Potassium Level 3.9 Chloride Level 103 Carbon Dioxide Level 29 Anion Gap 11 Blood Urea Nitrogen 9 Creatinine 0.91 Glucose Level 107 Calcium Level 9.3 Medications Medications Current Medications Ondansetron HCl 4 mg 4 mg Q6H PRN IV NAUSEA AND/OR VOMITING Last administered on 06/22/17 10:06; Admin Dose 4 MG; Start 06/06/17 at 12:00 Potassium Chloride/Dextrose/ Sod Cl (D5-1/2ns + KCl 20 Meq) 1,000 ml @ 100 mls/ hr Q10H IV Last administered on 06/25/17 09:25; Admin Dose 100 MLS/HR; Start 06/06/17 at 11:32 Naloxone HCl (Narcan) 0.2 mg Q2M PRN IV FOR RESP RATE 8 OR LESS; Start 06/06/17 at 12:30 Phenol (Chloraseptic Throat [place]) 2 spray Q2H PRN MT SORE THROAT Last administered on 06/10/17 02:18; Admin Dose 2 SPRAY; Start 06/06/17 at 20:00 Morphine Sulfate (morphine) 2 mg Q1HWA PRN IV PAIN LEVEL 7-10 Last administered on 06/08/17 12:27; Admin Dose 2 MG; Start 06/07/17 at 01:30 Silver Sulfadiazine (Thermazene 1% 25 Gm) 1 applic BID TOP Last administered on 06/25/17 09:25; Admin Dose 1 APPLIC; Start 06/14/17 at 21:00 Acetaminophen 650 mg 650 mg Q6H PRN PO PAIN AND OR ELEVATED TEMP Last administered on 06/17/17 22:39; Admin Dose 650 MG; Start 06/16/17 at 16:00 Metronidazole 100 ml @ 100 mls/hr Q6 IVPB Last administered on 06/25/17 12:00 ; Admin Dose 100 MLS/HR; Start 06/18/17 at 18:00 Levofloxacin/ Dextrose (Levaquin 750 Mg/ D5W 150 ml (Pmx)) 150 ml @ 100 mls/hr Q24H IVPB Last administered on 06/25/17 14:00; Admin Dose 100 MLS/HR; Start at 14:00 Lorazepam (Ativan) 0.5 mg Q6H PRN PO ANXIETY Last administered on 06/21/17 23: 56; Admin Dose 0.5 MG; Start 06/21/17 at 21:00 Escitalopram Oxalate 10 mg 10 mg DAILY PO Last administered on 06/25/17 09:25 ; Admin Dose 10 MG; Start 06/22/17 at 12:30 Total Parenteral Nutrition (Tpn) 1,000 ml @ 75 mls/hr [id number] IV ; Start at 15:00; Status Future Hold Mineral Oil (Mineral Oil) 30 ml Q8 PO Last administered on 06/25/17 05:27; Admin Dose 30 ML; Start 06/23/17 at 16:00 Alprazolam (Xanax) 0.5 mg BID PO Last administered on 06/25/17 09:25; Admin Dose 0.5 MG; Start 06/23/17 at 16:00 KERRY RECINOS Jun 25, 2017 16:15
--- NOTE | 2017-06-25 16:17 | PN ---
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 Plan of care discussed with Dr. Plunkett Subjective 24 Hr Interval Summary Free Text/Dictation Late entry Exam/Review of Systems Vital Signs Vitals Vital Signs Date Time Temp Pulse Resp B/P Pulse Ox O2 Delivery O2 Flow Rate FiO2 06/25/17 15:50 98.2 61 18 118/79 97 06/25/17 01:26 21 06/23/17 04:10 Room Air Intake and Output 06/24/17 06/24/17 06/25/17 15:00 23:00 07:00 Intake Total 1500 ml Output Total 1200 ml Balance 300 ml Results Result Diagram: 06/25/17 0713 06/25/17 0713 Results 24 hrs Laboratory Tests Test 06/25/17 07:13 White Blood Count 5.4 Red Blood Count 3.74 L Hemoglobin 11.0 L Hematocrit 33.2 L Mean Corpuscular Volume 88.8 Mean Corpuscular Hemoglobin 29.4 Mean Corpuscular Hemoglobin Concent 33.1 Red Cell Distribution Width 13.2 Platelet Count 271 Mean Platelet Volume 9.2 Neutrophils % 58.6 Lymphocytes % 28.4 Monocytes % 10.6 Eosinophils % 1.3 Basophils % 0.7 Nucleated Red Blood Cells % 0.0 Neutrophils # 3.1 Lymphocytes # 1.5 Monocytes # 0.6 Eosinophils # 0.1 Basophils # 0.0 Nucleated Red Blood Cells # 0.0 Sodium Level 139 Potassium Level 3.9 Chloride Level 103 Carbon Dioxide Level 29 Anion Gap 11 Blood Urea Nitrogen 9 Creatinine 0.91 Glucose Level 107 Calcium Level 9.3 Medications Medications Current Medications Ondansetron HCl 4 mg 4 mg Q6H PRN IV NAUSEA AND/OR VOMITING Last administered on 06/22/17t 10:06; Admin Dose 4 MG; Start 06/06/17 at 12:00 Potassium Chloride/Dextrose/ Sod Cl (D5-1/2ns + KCl 20 Meq) 1,000 ml @ 100 mls/ hr Q10H IV Last administered on 06/25/17 09:25; Admin Dose 100 MLS/HR; Start 06/06/17 at 11:32 Naloxone HCl (Narcan) 0.2 mg Q2M PRN IV FOR RESP RATE 8 OR LESS; Start 06/06/17 at 12:30 Phenol (Chloraseptic Throat [place]) 2 spray Q2H PRN MT SORE THROAT Last administered on 06/10/17 02:18; Admin Dose 2 SPRAY; Start 06/06/17 at 20:00 Morphine Sulfate (morphine) 2 mg Q1HWA PRN IV PAIN LEVEL 7-10 Last administered on 06/08/17 12:27; Admin Dose 2 MG; Start 06/07/17 at 01:30 Silver Sulfadiazine (Thermazene 1% 25 Gm) 1 applic BID TOP Last administered on 06/25/17 09:25; Admin Dose 1 APPLIC; Start 06/14/17 at 21:00 Acetaminophen 650 mg 650 mg Q6H PRN PO PAIN AND OR ELEVATED TEMP Last administered on 06/17/17 22:39; Admin Dose 650 MG; Start 06/16/17 at 16:00 Metronidazole 100 ml @ 100 mls/hr Q6 IVPB Last administered on 06/25/17 12:00 ; Admin Dose 100 MLS/HR; Start 06/18/17 at 18:00 Levofloxacin/ Dextrose (Levaquin 750 Mg/ D5W 150 ml (Pmx)) 150 ml @ 100 mls/hr Q24H IVPB Last administered on 06/25/17 14:00; Admin Dose 100 MLS/HR; Start at 14:00 Lorazepam (Ativan) 0.5 mg Q6H PRN PO ANXIETY Last administered on 06/21/17 23: 56; Admin Dose 0.5 MG; Start 06/21/17 at 21:00 Escitalopram Oxalate 10 mg 10 mg DAILY PO Last administered on 06/25/17 09:25 ; Admin Dose 10 MG; Start 06/22/17 at 12:30 Total Parenteral Nutrition (Tpn) 1,000 ml @ 75 mls/hr [id number] IV ; Start at 15:00; Status Future Hold Mineral Oil (Mineral Oil) 30 ml Q8 PO Last administered on 06/25/17 05:27; Admin Dose 30 ML; Start 06/23/17 at 16:00 Alprazolam (Xanax) 0.5 mg BID PO Last administered on 06/25/17 09:25; Admin Dose 0.5 MG; Start 06/23/17 at 16:00 KERRY RECINOS Jun 25, 2017 16:17
--- NOTE | 2017-06-25 17:49 | CONS ---
Date/Time of Note Date/Time of Note DATE: 06/25/17 TIME: 17:45 Assessment/Plan Assessment/Plan Chief Complaint/Hosp Course - Post-op SIRS with fever and leukocytosis - resolved - Rectal cancer, s/p laparotomy and low anterior colon resection 06/06/2017 - Abdominal incisional wound growing E. Coli 06/14/2017 - Pelvic abscess, s/p CT guided drainage catheter placement 06/20/2017, wound cx NTD - Normocytic anemia - Near syncope likely vasovagal 06/20/2017 - CP - troponin x2 negative Recommendations: - Pending: aerobic/anaerobic cxs from CT guided drainage (NTD) - Continue Levaquin and Flagyl (06/18/2017-) until fluid collection resolves - Continue local wound care Problems: Consultation Date/Type/Reason Admit Date/Time Jun 06, 2017 at 05:15 Type of Consultation: Infectious Disease Exam/Review of Systems Vital Signs Vitals Vital Signs Date Time Temp Pulse Resp B/P Pulse Ox O2 Delivery O2 Flow Rate FiO2 06/25/17 16:16 62 06/25/17 15:50 98.2 18 118/79 97 06/25/17 01:26 21 06/23/17 04:10 Room Air Intake and Output 06/24/17 06/24/17 06/25/17 14:59 22:59 06:59 Intake Total 1500 ml Output Total 1200 ml Balance 300 ml Results Result Diagram: 06/25/17 0713 06/25/17 0713 Results 24 hrs Laboratory Tests Test 06/25/17 07:13 White Blood Count 5.4 Red Blood Count 3.74 L Hemoglobin 11.0 L Hematocrit 33.2 L Mean Corpuscular Volume 88.8 Mean Corpuscular Hemoglobin 29.4 Mean Corpuscular Hemoglobin Concent 33.1 Red Cell Distribution Width 13.2 Platelet Count 271 Mean Platelet Volume 9.2 Neutrophils % 58.6 Lymphocytes % 28.4 Monocytes % 10.6 Eosinophils % 1.3 Basophils % 0.7 Nucleated Red Blood Cells % 0.0 Neutrophils # 3.1 Lymphocytes # 1.5 Monocytes # 0.6 Eosinophils # 0.1 Basophils # 0.0 Nucleated Red Blood Cells # 0.0 Sodium Level 139 Potassium Level 3.9 Chloride Level 103 Carbon Dioxide Level 29 Anion Gap 11 Blood Urea Nitrogen 9 Creatinine 0.91 Glucose Level 107 Calcium Level 9.3 Medications Medications Current Medications Ondansetron HCl 4 mg 4 mg Q6H PRN IV NAUSEA AND/OR VOMITING Last administered on 06/22/17 10:06; Admin Dose 4 MG; Start 06/06/17 at 12:00 Potassium Chloride/Dextrose/ Sod Cl (D5-1/2ns + KCl 20 Meq) 1,000 ml @ 100 mls/ hr Q10H IV Last administered on 06/25/17 09:25; Admin Dose 100 MLS/HR; Start 06/06/17 at 11:32 Naloxone HCl (Narcan) 0.2 mg Q2M PRN IV FOR RESP RATE 8 OR LESS; Start 06/06/17 at 12:30 Phenol (Chloraseptic Throat [place]) 2 spray Q2H PRN MT SORE THROAT Last administered on 06/10/17 02:18; Admin Dose 2 SPRAY; Start 06/06/17 at 20:00 Morphine Sulfate (morphine) 2 mg Q1HWA PRN IV PAIN LEVEL 7-10 Last administered on 06/08/17 12:27; Admin Dose 2 MG; Start 06/07/17 at 01:30 Silver Sulfadiazine (Thermazene 1% 25 Gm) 1 applic BID TOP Last administered on 06/25/17 09:25; Admin Dose 1 APPLIC; Start 06/14/17 at 21:00 Acetaminophen 650 mg 650 mg Q6H PRN PO PAIN AND OR ELEVATED TEMP Last administered on 06/17/17 22:39; Admin Dose 650 MG; Start 06/16/17 at 16:00 Metronidazole 100 ml @ 100 mls/hr Q6 IVPB Last administered on 06/25/17 12:00 ; Admin Dose 100 MLS/HR; Start 06/18/17 at 18:00 Levofloxacin/ Dextrose (Levaquin 750 Mg/ D5W 150 ml (Pmx)) 150 ml @ 100 mls/hr Q24H IVPB Last administered on 06/25/17 14:00; Admin Dose 100 MLS/HR; Start at 14:00 Lorazepam (Ativan) 0.5 mg Q6H PRN PO ANXIETY Last administered on 06/21/17 23: 56; Admin Dose 0.5 MG; Start 06/21/17 at 21:00 Escitalopram Oxalate 10 mg 10 mg DAILY PO Last administered on 06/25/17 09:25 ; Admin Dose 10 MG; Start 06/22/17 at 12:30 Total Parenteral Nutrition (Tpn) 1,000 ml @ 75 mls/hr [id number] IV ; Start at 15:00; Status Future Hold Mineral Oil (Mineral Oil) 30 ml Q8 PO Last administered on 06/25/17 05:27; Admin Dose 30 ML; Start 06/23/17 at 16:00 Alprazolam (Xanax) 0.5 mg BID PO Last administered on 06/25/17 09:25; Admin Dose 0.5 MG; Start 06/23/17 at 16:00 CHARLENE SCHAEFER MD Jun 25, 2017 17:48
[2017-06-25] MEDS: LORAZEPAM 0.5 MG TAB PO PRN (22:50)
[2017-06-26] VITALS (9 sets, daily range): BP systolic 100–119; BP diastolic 67–81; PULSE 62–88; RESP 18–20
[2017-06-26] MEDS ORDERED: ZOLPIDEM 5 MG TAB PO PRN
[2017-06-26 06:18] LABS: BASOPHILS % 0.7 % (0.0-2.0); EOSINOPHILS # 0.1 10^3/ul (0.0-0.5); EOSINOPHILS % 1.1 % (0.0-7.0); HEMATOCRIT 32.7 % (42.0-52.0); HEMOGLOBIN 11.2 g/dl (14.0-18.0); LYMPHOCYTES # 1.5 10^3/ul (0.8-2.9); MEAN CORPUSCULAR HGB CONC 34.3 g/dl (32.0-37.0); MEAN CORPUSCULAR VOLUME 87.7 fl (82.0-101.0); MEAN PLATELET VOLUME 8.7 fl (7.4-10.4); MONOCYTE # 0.5 10^3/ul (0.3-0.9); MONOCYTES % 9.4 % (0.0-11.0); NEUTROPHIL # 3.3 10^3/ul (1.6-7.5); NEUTROPHILS % 60.4 % (39.0-77.0); PLATELET COUNT 241 10^3/UL (140-415); RED BLOOD COUNT 3.73 10^6/ul (4.70-6.10); WHITE BLOOD COUNT 5.4 10^3/ul (4.8-10.8)
[2017-06-26] MEDS: metroNIDAZOLE 500 MG/NS (PMX) 100 ML IVPB SCH ×3 (06:23→21:23)
[2017-06-26] MEDS: MINERAL OIL 30ML CUP PO SCH ×3 (06:23→21:23)
[2017-06-26 06:51] LABS: CALCIUM 9.4 mg/dl (8.4-10.2); CREATININE 0.94 mg/dl (0.61-1.24)
[2017-06-26] MEDS: ESCITALOPRAM 10 MG TAB PO SCH (08:38)
[2017-06-26] MEDS: ALPRAZOLAM 0.5 MG TAB PO SCH ×2 (08:38→20:08)
[2017-06-26] MEDS: LORAZEPAM 0.5 MG TAB PO PRN ×2 (08:52→21:22)
[2017-06-26] MEDS: SILVER SULFADIAZINE 1% 25 GM CR TOP SCH (08:52)
--- NOTE | 2017-06-26 10:05 | CONS ---
Date/Time of Note Date/Time of Note DATE: 06/26/17 TIME: 10:02 Assessment/Plan Assessment/Plan Chief Complaint/Hosp Course assessment/impression - sepsis due to pelvic abscess and abdominal incisional wound infection, resolving - Abdominal incisional wound growing E. Coli 06/14/2017 - Pelvic abscess, s/p CT guided drainage catheter placement 06/20/2017 - Rectal cancer, s/p laparotomy and low anterior colon resection 06/06/2017 - Normocytic anemia - Near syncope likely vasovagal 06/20/2017 - CP - troponin x2 negative recommendations: - pending: aerobic/anaerobic cultures from CT guided drainage (NTD) - continue levo and metronidazole (06/18/2017-) until fluid collection resolves - management d/w Pt and his family Problems: Consultation Date/Type/Reason Admit Date/Time Jun 06, 2017 at 05:15 Initial Consult Date 06/11/17 Type of Consultation: Infectious Disease 24 HR Interval Summary Constitutional: no complaints Detailed Summary Eyes: no complaints ENT: no complaints Respiratory: no complaints Cardiovascular: no complaints Gastrointestinal: no complaints Genitourinary: no complaints Musculoskeletal: no complaints Skin: no complaints Neurologic: no complaints Exam/Review of Systems Vital Signs Vitals Vital Signs Date Time Temp Pulse Resp B/P Pulse Ox O2 Delivery O2 Flow Rate FiO2 06/26/17 08:00 88 06/26/17 07:17 98.4 20 119/81 98 06/25/17 01:26 21 06/23/17 04:10 Room Air Intake and Output 06/25/17 06/25/17 06/26/17 15:00 23:00 07:00 Intake Total 1950 ml 900 ml Output Total 1800 ml Balance 150 ml 900 ml Exam Constitutional: alert, oriented, well developed Psych: nl mood/affect, no complaints Head: atraumatic, normocephalic Eyes: nl conjunctiva, nl lids ENMT: nl external ears & nose, nl nasal mucosa & septum Neck: supple Respiratory: clear to auscultation, normal air movement Cardiovascular: nl pulses, regular rate and rhythm Gastrointestinal: non-tender, other (+external dainage catheter in L buttock region), soft Musculoskeletal: nl extremities to inspection Extremities: normal pulses Neurological: SAND DIGGER II-XII intact, nl mental status, nl speech Skin: nl turgor, No rash or lesions Results Result Diagram: 06/26/1760406/26/17604 Results 24 hrs Laboratory Tests Test 06/26/17 06:05 White Blood Count 5.4 Red Blood Count 3.73 L Hemoglobin 11.2 L Hematocrit 32.7 L Mean Corpuscular Volume 87.7 Mean Corpuscular Hemoglobin 30.0 Mean Corpuscular Hemoglobin Concent 34.3 Red Cell Distribution Width 13.0 Platelet Count 241 Mean Platelet Volume 8.7 Neutrophils % 60.4 Lymphocytes % 28.0 Monocytes % 9.4 Eosinophils % 1.1 Basophils % 0.7 Nucleated Red Blood Cells % 0.0 Neutrophils # 3.3 Lymphocytes # 1.5 Monocytes # 0.5 Eosinophils # 0.1 Basophils # 0.0 Nucleated Red Blood Cells # 0.0 Sodium Level 139 Potassium Level 4.0 Chloride Level 103 Carbon Dioxide Level 27 Anion Gap 13 Blood Urea Nitrogen 10 Creatinine 0.94 Glucose Level 113 Calcium Level 9.4 Medications Medications Current Medications Ondansetron HCl 4 mg 4 mg Q6H PRN IV NAUSEA AND/OR VOMITING Last administered on 06/22/17 10:06; Admin Dose 4 MG; Start 06/06/17 at 12:00 Potassium Chloride/Dextrose/ Sod Cl (D5-1/2ns + KCl 20 Meq) 1,000 ml @ 100 mls/ hr Q10H IV Last administered on 06/25/17 22:54; Admin Dose 100 MLS/HR; Start 06/06/17 at 11:32 Naloxone HCl (Narcan) 0.2 mg Q2M PRN IV FOR RESP RATE 8 OR LESS; Start 06/06/17 at 12:30 Phenol (Chloraseptic Throat [place]) 2 spray Q2H PRN MT SORE THROAT Last administered on 06/10/17 02:18; Admin Dose 2 SPRAY; Start 06/06/17 at 20:00 Morphine Sulfate (morphine) 2 mg Q1HWA PRN IV PAIN LEVEL 7-10 Last administered on 06/08/17 12:27; Admin Dose 2 MG; Start 06/07/17 at 01:30 Silver Sulfadiazine (Thermazene 1% 25 Gm) 1 applic BID TOP Last administered on 06/26/17 08:52; Admin Dose 1 APPLIC; Start 06/14/17 at 21:00 Acetaminophen 650 mg 650 mg Q6H PRN PO PAIN AND OR ELEVATED TEMP Last administered on 06/17/17 22:39; Admin Dose 650 MG; Start 06/16/17 at 16:00 Metronidazole 100 ml @ 100 mls/hr Q6 IVPB Last administered on 06/26/17 06:23 ; Admin Dose 100 MLS/HR; Start 06/18/17 at 18:00 Levofloxacin/ Dextrose (Levaquin 750 Mg/ D5W 150 ml (Pmx)) 150 ml @ 100 mls/hr Q24H IVPB Last administered on 06/25/17 14:00; Admin Dose 100 MLS/HR; Start at 14:00 Lorazepam (Ativan) 0.5 mg Q6H PRN PO ANXIETY Last administered on 06/26/17 08: 52; Admin Dose 0.5 MG; Start 06/21/17 at 21:00 Escitalopram Oxalate 10 mg 10 mg DAILY PO Last administered on 06/25/17 09:25 ; Admin Dose 10 MG; Start 06/22/17 at 12:30 Total Parenteral Nutrition (Tpn) 1,000 ml @ 75 mls/hr [id number] IV ; Start at 15:00; Status Future Hold Mineral Oil (Mineral Oil) 30 ml Q8 PO Last administered on 06/26/17 06:23; Admin Dose 30 ML; Start 06/23/17 at 16:00 Alprazolam (Xanax) 0.5 mg BID PO Last administered on 06/25/17 20:45; Admin Dose 0.5 MG; Start 06/23/17 at 16:00 SCOTT BUSTAMANTE M.D. Jun 26, 2017 10:05
--- NOTE | 2017-06-26 10:33 | RADRPT ---
PROCEDURE: XR Abdomen CLINICAL INDICATION: Evaluation of contrast in the colon TECHNIQUE: An AP supine radiograph of the abdomen was submitted. COMPARISON: 06/23/2017 FINDINGS: A pigtail drainage catheter again projects to the central pelvis. There is now only a faint amount of residual contrast seen within the distal colon. The bowel gas pa ttern is nonspecific. anastomotic shaheen are again seen in the rectal region. No organomegaly or discrete mass is identified. No pathological calcification is identified. The osseous elements appear unremarkable. The lung bases are clear. The vertically oriented superficial shaheen have been removed. IMPRESSION: 1. Only a faint amount of residual contrast is seen within the distal colon with the bowel gas abena rosanne nonspecific. 2. Anastomotic shaheen are again seen in the rectal region but the superficial shaheen have been re moved. 3. A pigtail drainage catheter again projects to the central pelvis. Physician Chance Date Time Electronically viewed and signed by Physician Chance on 06/26/2017 10:33 /
[2017-06-26] MEDS: D5W-0.45 NACL + KCL 20 MEQ 1,000 ML IV SCH (11:18)
[2017-06-26] MEDS: LEVOFLOXACIN 750MG/D5W (PMX) 150 ML IVPB SCH (14:35)
--- NOTE | 2017-06-26 17:25 | PN ---
Date/Time of Note Date/Time of Note DATE: 06/26/17 TIME: 17:23 Assessment/Plan VTE Prophylaxis VTE Prophylaxis Intervention: SCD's Lines/Catheters IV C[facility] (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 Plan of care discussed with Dr. Plunkett Problems: Exam/Review of Systems Vital Signs Vitals Vital Signs Date Time Temp Pulse Resp B/P Pulse Ox O2 Delivery O2 Flow Rate FiO2 06/26/17 16:00 75 06/26/17 15:54 97.9 20 101/67 98 06/25/17 01:26 21 06/23/17 04:10 Room Air Intake and Output 06/25/17 06/25/17 06/26/17 15:00 23:00 07:00 Intake Total 1950 ml 900 ml Output Total 1800 ml Balance 150 ml 900 ml Exam Constitutional: alert Neck: supple Respiratory: normal air movement Cardiovascular: nl pulses Gastrointestinal: other (Surgical incision), soft, pelvic abscess drain Extremities: normal pulses Results Result Diagram: 06/26/17 0605 06/26/17 0605 Results 24 hrs Laboratory Tests Test 06/26/17 06:05 White Blood Count 5.4 Red Blood Count 3.73 L Hemoglobin 11.2 L Hematocrit 32.7 L Mean Corpuscular Volume 87.7 Mean Corpuscular Hemoglobin 30.0 Mean Corpuscular Hemoglobin Concent 34.3 Red Cell Distribution Width 13.0 Platelet Count 241 Mean Platelet Volume 8.7 Neutrophils % 60.4 Lymphocytes % 28.0 Monocytes % 9.4 Eosinophils % 1.1 Basophils % 0.7 Nucleated Red Blood Cells % 0.0 Neutrophils # 3.3 Lymphocytes # 1.5 Monocytes # 0.5 Eosinophils # 0.1 Basophils # 0.0 Nucleated Red Blood Cells # 0.0 Sodium Level 139 Potassium Level 4.0 Chloride Level 103 Carbon Dioxide Level 27 Anion Gap 13 Blood Urea Nitrogen 10 Creatinine 0.94 Glucose Level 113 Calcium Level 9.4 Medications Medications Current Medications Ondansetron HCl 4 mg 4 mg Q6H PRN IV NAUSEA AND/OR VOMITING Last administered on 06/22/17 10:06; Admin Dose 4 MG; Start 06/06/17 at 12:00 Potassium Chloride/Dextrose/ Sod Cl (D5-1/2ns + KCl 20 Meq) 1,000 ml @ 100 mls/ hr Q10H IV Last administered on 06/26/17 11:18; Admin Dose 100 MLS/HR; Start 06/06/17 at 11:32 Naloxone HCl (Narcan) 0.2 mg Q2M PRN IV FOR RESP RATE 8 OR LESS; Start 06/06/17 at 12:30 Phenol (Chloraseptic Throat [place]) 2 spray Q2H PRN MT SORE THROAT Last administered on 06/10/17 02:18; Admin Dose 2 SPRAY; Start 06/06/17 at 20:00 Morphine Sulfate (morphine) 2 mg Q1HWA PRN IV PAIN LEVEL 7-10 Last administered on 06/08/17 12:27; Admin Dose 2 MG; Start 06/07/17 at 01:30 Silver Sulfadiazine (Thermazene 1% 25 Gm) 1 applic BID TOP Last administered on 06/26/17 08:52; Admin Dose 1 APPLIC; Start 06/14/17 at 21:00 Acetaminophen 650 mg 650 mg Q6H PRN PO PAIN AND OR ELEVATED TEMP Last administered on 06/17/17 22:39; Admin Dose 650 MG; Start 06/16/17 at 16:00 Levofloxacin/ Dextrose (Levaquin 750 Mg/ D5W 150 ml (Pmx)) 150 ml @ 100 mls/hr Q24H IVPB Last administered on 06/26/17 14:35; Admin Dose 100 MLS/HR; Start at 14:00 Lorazepam (Ativan) 0.5 mg Q6H PRN PO ANXIETY Last administered on 06/26/17 08: 52; Admin Dose 0.5 MG; Start 06/21/17 at 21:00 Escitalopram Oxalate 10 mg 10 mg DAILY PO Last administered on 06/25/17 09:25 ; Admin Dose 10 MG; Start 06/22/17 at 12:30 Total Parenteral Nutrition (Tpn) 1,000 ml @ 75 mls/hr [id number] IV ; Start at 15:00; Status Future Hold Mineral Oil (Mineral Oil) 30 ml Q8 PO Last administered on 06/26/17 13:26; Admin Dose 30 ML; Start 06/23/17 at 16:00 Alprazolam 0.5 mg 0.5 mg BID PO Last administered on 06/25/17 20:45; Admin Dose 0.5 MG; Start 06/23/17 at 16:00 Metronidazole (Flagyl 500 Mg (Pmx)) 100 ml @ 100 mls/hr Q8 IVPB Last administered on 06/26/17 13:25; Admin Dose 100 MLS/HR; Start 06/26/17 at 14:00 ALEX MOON Jun 26, 2017 17:25
--- NOTE | 2017-06-26 23:14 | PN ---
DATE: 06/26/2017 SUBJECTIVE DATA: No complaint. No abdominal pain. No nausea. No vomiting. No fever. Has had bowel movement today, normal. VITAL SIGNS: Temperature 97.9, heart rate 70, respirations 20, blood pressure 101/67, saturation 98 percent, room air. LABORATORY AND DIAGNOSTIC DATA: WBC 5400, with 60 percent segmented, hemoglobin 11.2, hematocrit 32.7. Chemistry within normal limits. PHYSICAL EXAM: HEART: Regular. LUNGS: Clear. ABDOMEN: Soft. There is very small area about 1.5 cm x 1 cm superficial incisional wound infection, which is treated with Betadine solution b.i.d. and is healing. There is no abscess over that. Other shaheen have been removed. Wound is clean and clear. LOWER EXTREMITIES: No pitting edema. No calf tenderness. ASSESSMENT AND PLAN: A 57-year-old gentleman who had a very low anterior resection of rectosigmoid cancer of the colon. Postop the patient had slight complication, with fever and leukocytosis, once started on antibiotic, and antibiotic was stopped. Again, he started running a fever, and antibiotic was restarted. CT scan revealed presence of presacral fluid collection and a couple of air bubbles that was aspirated under CT guidance, and specimens which were sent for culture and sensitivity and Gram stain was negative. The drain has been draining serosanguineous to sanguinous fluid. No evidence of bowel contents. All visible suspicion that maybe there is a leak. But so far we have not been able to document the leak, and patient is on regular and soft diet and is having bowel movements, having no fever, no leukocytosis. If it appears that patient does not have any leak, the Infectious Disease healthcare economics consultant suggested that continue antibiotics IV until the presacral drainage is completely cleared. So maybe tomorrow or the day after tomorrow, we are going to get a Gastrografin enema and also a CT scan of the pelvis to see the clearance of the presacral fluid for possible removal of the pigtail drain. Dictated By: Farrukh Ni MD /paola/[email or web address] /Document#: [id number]
[2017-06-27] MEDS: D5W-0.45 NACL + KCL 20 MEQ 1,000 ML IV SCH ×3 (00:26→12:38)
[2017-06-27 02:00] VITALS: BP 114/75; RESP 18
[2017-06-27 05:27] LABS: BASOPHILS % 0.7 % (0.0-2.0); EOSINOPHILS # 0.1 10^3/ul (0.0-0.5); EOSINOPHILS % 1.5 % (0.0-7.0); HEMATOCRIT 33.6 % (42.0-52.0); HEMOGLOBIN 11.1 g/dl (14.0-18.0); LYMPHOCYTES # 1.6 10^3/ul (0.8-2.9); LYMPHOCYTES % 29.1 % (15.0-51.0); MEAN CORPUSCULAR HEMOGLOBIN 28.9 pg (29.0-33.0); MEAN CORPUSCULAR VOLUME 87.5 fl (82.0-101.0); MEAN PLATELET VOLUME 9.2 fl (7.4-10.4); MONOCYTE # 0.6 10^3/ul (0.3-0.9); MONOCYTES % 11.3 % (0.0-11.0); NEUTROPHIL # 3.1 10^3/ul (1.6-7.5); PLATELET COUNT 223 10^3/UL (140-415); RED BLOOD COUNT 3.84 10^6/ul (4.70-6.10); RED CELL DISTRIBUTION WIDTH 13.4 % (11.5-14.5); WHITE BLOOD COUNT 5.5 10^3/ul (4.8-10.8)
[2017-06-27 05:49] LABS: CALCIUM 9.4 mg/dl (8.4-10.2); CREATININE 0.88 mg/dl (0.61-1.24); POTASSIUM 4.2 mmol/L (3.5-5.1)
[2017-06-27] MEDS: MINERAL OIL 30ML CUP PO SCH ×2 (06:08→14:22)
[2017-06-27] MEDS: metroNIDAZOLE 500 MG/NS (PMX) 100 ML IVPB SCH ×3 (06:08→21:14)
[2017-06-27 07:25] VITALS: BP 117/75; RESP 18
[2017-06-27] MEDS: ESCITALOPRAM 10 MG TAB PO SCH (08:52)
--- NOTE | 2017-06-27 08:59 | CONS ---
Date/Time of Note Date/Time of Note DATE: 06/27/17 TIME: 08:57 Assessment/Plan Assessment/Plan Chief Complaint/Hosp Course assessment/impression - sepsis due to pelvic abscess and abdominal incisional wound infection, resolving - Abdominal incisional wound growing E. Coli 06/14/2017 - Pelvic abscess, s/p CT guided drainage catheter placement 06/20/2017 - Rectal cancer, s/p laparotomy and low anterior colon resection 06/06/2017 - Normocytic anemia - Near syncope likely vasovagal 06/20/2017 - CP - troponin x2 negative - "panic" per Pt; on exam with his , Pt appeared stable recommendations: - continue levo and metronidazole (06/18/2017-) until fluid collection resolves; follow up gastrografin and CT to be arranged by the surgeon - management d/w Pt and his Problems: Consultation Date/Type/Reason Admit Date/Time Jun 06, 2017 at 05:15 Initial Consult Date 06/11/17 Type of Consultation: Infectious Disease 24 HR Interval Summary Constitutional: no complaints Detailed Summary Eyes: no complaints ENT: no complaints Respiratory: no complaints Cardiovascular: no complaints Gastrointestinal: no complaints Genitourinary: no complaints Musculoskeletal: no complaints Skin: no complaints Neurologic: no complaints Psychological: other (felt panic, no precipitating factors) Exam/Review of Systems Vital Signs Vitals Vital Signs Date Time Temp Pulse Resp B/P Pulse Ox O2 Delivery O2 Flow Rate FiO2 06/27/17 07:25 98.6 62 18 117/75 97 06/25/17 01:26 21 Intake and Output 06/26/17 06/26/17 06/27/17 15:00 23:00 07:00 Intake Total 1400 ml 1750 ml 750 ml Output Total 1400 ml 2510 ml 1110 ml Balance 0 ml -760 ml -360 ml Exam Constitutional: alert, oriented, well developed Psych: nl mood/affect, no complaints, No anxiety, No confusion Head: atraumatic, normocephalic Eyes: nl conjunctiva, nl lids ENMT: nl external ears & nose, nl nasal mucosa & septum Respiratory: other (Pt was ambulating in the hallway and I could not examine his C/A/P) Cardiovascular: other (Pt was ambulating in the hallway and I could not examine his C/A/P) Gastrointestinal: other (Pt was ambulating in the hallway and I could not examine his C/A/P) Genitourinary - Male: other (Pt was ambulating in the hallway and I could not examine his C/A/P) Musculoskeletal: nl extremities to inspection Extremities: No edema Neurological: HOME AID II-XII intact, nl mental status, nl speech, nl strength, No confused Skin: nl turgor Results Result Diagram: 06/27/17 0439 06/27/17 0439 Results 24 hrs Laboratory Tests Test 06/27/17 04:39 White Blood Count 5.5 Red Blood Count 3.84 L Hemoglobin 11.1 L Hematocrit 33.6 L Mean Corpuscular Volume 87.5 Mean Corpuscular Hemoglobin 28.9 L Mean Corpuscular Hemoglobin Concent 33.0 Red Cell Distribution Width 13.4 Platelet Count 223 Mean Platelet Volume 9.2 Neutrophils % 57.0 Lymphocytes % 29.1 Monocytes % 11.3 H Eosinophils % 1.5 Basophils % 0.7 Nucleated Red Blood Cells % 0.0 Neutrophils # 3.1 Lymphocytes # 1.6 Monocytes # 0.6 Eosinophils # 0.1 Basophils # 0.0 Nucleated Red Blood Cells # 0.0 Sodium Level 138 Potassium Level 4.2 Chloride Level 103 Carbon Dioxide Level 28 Anion Gap 11 Blood Urea Nitrogen 10 Creatinine 0.88 Glucose Level 115 Calcium Level 9.4 Medications Medications Current Medications Ondansetron HCl 4 mg 4 mg Q6H PRN IV NAUSEA AND/OR VOMITING Last administered on 06/22/17 10:06; Admin Dose 4 MG; Start 06/06/17 at 12:00 Potassium Chloride/Dextrose/ Sod Cl (D5-1/2ns + KCl 20 Meq) 1,000 ml @ 100 mls/ hr Q10H IV Last administered on 06/27/17 00:26; Admin Dose 100 MLS/HR; Start 06/06/17 at 11:32 Naloxone HCl (Narcan) 0.2 mg Q2M PRN IV FOR RESP RATE 8 OR LESS; Start 06/06/17 at 12:30 Phenol (Chloraseptic Throat [place]) 2 spray Q2H PRN MT SORE THROAT Last administered on 06/10/17 02:18; Admin Dose 2 SPRAY; Start 06/06/17 at 20:00 Morphine Sulfate (morphine) 2 mg Q1HWA PRN IV PAIN LEVEL 7-10 Last administered on 06/08/17 12:27; Admin Dose 2 MG; Start 06/07/17 at 01:30 Acetaminophen 650 mg 650 mg Q6H PRN PO PAIN AND OR ELEVATED TEMP Last administered on 06/17/17 22:39; Admin Dose 650 MG; Start 06/16/17 at 16:00 Levofloxacin/ Dextrose (Levaquin 750 Mg/ D5W 150 ml (Pmx)) 150 ml @ 100 mls/hr Q24H IVPB Last administered on 06/26/17 14:35; Admin Dose 100 MLS/HR; Start at 14:00 Lorazepam (Ativan) 0.5 mg Q6H PRN PO ANXIETY Last administered on 06/26/17 21: 22; Admin Dose 0.5 MG; Start 06/21/17 at 21:00 Escitalopram Oxalate 10 mg 10 mg DAILY PO Last administered on 06/27/17 08:52 ; Admin Dose 10 MG; Start 06/22/17 at 12:30 Total Parenteral Nutrition (Tpn) 1,000 ml @ 75 mls/hr [id number] IV ; Start at 15:00; Status Future Hold Mineral Oil (Mineral Oil) 30 ml Q8 PO Last administered on 06/27/17 06:08; Admin Dose 30 ML; Start 06/23/17 at 16:00 Alprazolam 0.5 mg 0.5 mg BID PO Last administered on 06/25/17 20:45; Admin Dose 0.5 MG; Start 06/23/17 at 16:00 Metronidazole (Flagyl 500 Mg (Pmx)) 100 ml @ 100 mls/hr Q8 IVPB Last administered on 06/27/17 06:08; Admin Dose 100 MLS/HR; Start 06/26/17 at 14:00 SCOTT BUSTAMANTE M.D. Jun 27, 2017 08:59
[2017-06-27] MEDS: ALPRAZOLAM 0.5 MG TAB PO SCH (09:00)
[2017-06-27] MEDS ORDERED: ALPRAZOLAM 0.25 MG TAB PO SCH (09:00)
[2017-06-27] MEDS: LORAZEPAM 0.5 MG TAB PO PRN ×2 (09:00→21:13)
[2017-06-27 14:00] VITALS: BP 110/72; RESP 17
--- NOTE | 2017-06-27 14:49 | PN ---
Date/Time of Note Date/Time of Note DATE: 06/27/17 TIME: 14:42 Assessment/Plan VTE Prophylaxis VTE Prophylaxis Intervention: SCD's Lines/Catheters IV [facility] ([facility] Peripheral IV Urinary Cath still in place: No Assessment/Plan Chief Complaint/Hosp Course Patient remains hemodynamically stable, tolerates diet well, denies any nausea vomiting. Plan for Gastrografin enema later this week for abscess resolution eval. 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 - Anxiety, continue Xanax as needed twice daily Further recommendations based on clinical course. Plan of care discussed with Dr. Plunkett Problems: Exam/Review of Systems Vital Signs Vitals Vital Signs Date Time Temp Pulse Resp B/P Pulse Ox O2 Delivery O2 Flow Rate FiO2 06/27/17 14:00 98.1 71 17 110/72 98 06/25/17 01:26 21 Intake and Output 06/26/17 06/26/17 06/27/17 15:00 23:00 07:00 Intake Total 1400 ml 1750 ml 750 ml Output Total 1400 ml 2510 ml 1110 ml Balance 0 ml -760 ml -360 ml Exam Constitutional: alert Neck: supple Respiratory: normal air movement Cardiovascular: nl pulses Gastrointestinal: other (Surgical incision), soft, pelvic abscess drain Extremities: normal pulses Results Result Diagram: 06/27/17 0439 06/27/17 0439 Results 24 hrs Laboratory Tests Test 06/27/17 04:39 White Blood Count 5.5 Red Blood Count 3.84 L Hemoglobin 11.1 L Hematocrit 33.6 L Mean Corpuscular Volume 87.5 Mean Corpuscular Hemoglobin 28.9 L Mean Corpuscular Hemoglobin Concent 33.0 Red Cell Distribution Width 13.4 Platelet Count 223 Mean Platelet Volume 9.2 Neutrophils % 57.0 Lymphocytes % 29.1 Monocytes % 11.3 H Eosinophils % 1.5 Basophils % 0.7 Nucleated Red Blood Cells % 0.0 Neutrophils # 3.1 Lymphocytes # 1.6 Monocytes # 0.6 Eosinophils # 0.1 Basophils # 0.0 Nucleated Red Blood Cells # 0.0 Sodium Level 138 Potassium Level 4.2 Chloride Level 103 Carbon Dioxide Level 28 Anion Gap 11 Blood Urea Nitrogen 10 Creatinine 0.88 Glucose Level 115 Calcium Level 9.4 Medications Medications Current Medications Ondansetron HCl 4 mg 4 mg Q6H PRN IV NAUSEA AND/OR VOMITING Last administered on 06/22/17 10:06; Admin Dose 4 MG; Start 06/06/17 at 12:00 Potassium Chloride/Dextrose/ Sod Cl (D5-1/2ns + KCl 20 Meq) 1,000 ml @ 100 mls/ hr Q10H IV Last administered on 06/27/17 12:38; Admin Dose 100 MLS/HR; Start 06/06/17 at 11:32 Naloxone HCl (Narcan) 0.2 mg Q2M PRN IV FOR RESP RATE 8 OR LESS; Start 06/06/17 at 12:30 Phenol (Chloraseptic Throat [place]) 2 spray Q2H PRN MT SORE THROAT Last administered on 06/10/17 02:18; Admin Dose 2 SPRAY; Start 06/06/17 at 20:00 Morphine Sulfate (morphine) 2 mg Q1HWA PRN IV PAIN LEVEL 7-10 Last administered on 06/08/17 12:27; Admin Dose 2 MG; Start 06/07/17 at 01:30 Acetaminophen 650 mg 650 mg Q6H PRN PO PAIN AND OR ELEVATED TEMP Last administered on 06/17/17 22:39; Admin Dose 650 MG; Start 06/16/17 at 16:00 Levofloxacin/ Dextrose (Levaquin 750 Mg/ D5W 150 ml (Pmx)) 150 ml @ 100 mls/hr Q24H IVPB Last administered on 06/26/17 14:35; Admin Dose 100 MLS/HR; Start at 14:00 Lorazepam (Ativan) 0.5 mg Q6H PRN PO ANXIETY Last administered on 06/27/17 09: 00; Admin Dose 0.5 MG; Start 06/21/17 at 21:00 Escitalopram Oxalate 10 mg 10 mg DAILY PO Last administered on 06/27/17 08:52 ; Admin Dose 10 MG; Start 06/22/17 at 12:30 Total Parenteral Nutrition (Tpn) 1,000 ml @ 75 mls/hr [id number] IV ; Start at 15:00; Status Future Hold Mineral Oil 30 ml 30 ml Q8 PO Last administered on 06/27/17 14:22; Admin Dose 30 ML; Start 06/23/17 at 16:00 Metronidazole (Flagyl 500 Mg (Pmx)) 100 ml @ 100 mls/hr Q8 IVPB Last administered on 06/27/17 14:23; Admin Dose 100 MLS/HR; Start 06/26/17 at 14:00 Alprazolam (Xanax) 0.5 mg BID PO ; Start 06/27/17 at 09:00 ALEX MOON Jun 27, 2017 14:49
[2017-06-27] MEDS ORDERED: ALPRAZOLAM 0.5 MG TAB PO PRN (15:00)
[2017-06-27] MEDS: LEVOFLOXACIN 750MG/D5W (PMX) 150 ML IVPB SCH (15:41)
[2017-06-27] MEDS ORDERED: IOHEXOL 300MG/ML 150 ML BTL ONE (16:05)
[2017-06-27] MEDS ORDERED: SOD CHLORIDE 0.9% 100 ML ONE (16:05)
[2017-06-27 19:21] VITALS: BP 108/74; RESP 20
--- NOTE | 2017-06-27 20:09 | RADRPT ---
PROCEDURE: CT Pelvis with contrast. CLINICAL INDICATION: Pelvic pain. History of sigmoid colon cancer with resection. Prior pelvic abs cess drainage on 06/20/2017. TECHNIQUE: CT scan of the pelvis with intravenous contrast was performed. Helical axial sections w ere obtained through the pelvis during intravenous injection of 100 ml of Omnipaque-300. Coronal an d sagittal reformatted images were obtained from the axial source images. Images were reviewed on a high-resolution PACS workstation. Total exam DLP is 255.86 mGy-cm. CTDIvol is 0.37 mGy. One or mor e of the following dose reduction techniques were used: Automated exposure control, adjustment of th e mA and/or kV according to patient size, use of iterative reconstruction technique. COMPARISON: Images from the pelvic abscess drainage dated 06/20/2017. FINDINGS: There is no pelvic lymphadenopathy or mass. The bladder and distal ureters are normal. The appendix is well seen and appears normal. There is no evidence of bowel obstruction. There has been prior surgery with a staple line noted in the rectosigmoid region. The drainage catheter is noted entering via the left gluteal region with the tip coiled in the genesis cral space. Previously noted fluid collection at this site is no longer present. There is no new fluid collection or mass. Postoperative changes are present in the anterior pelvic w all. Skin shaheen have been removed. The osseous structures are unremarkable with no fracture or lytic lesion. IMPRESSION: 1. Prior surgery with staple line noted in the rectosigmoid region. 2. Drainage catheter in satisfactory position. Previously noted fluid collection at the site is no longer present. 3. Anterior pelvic wall skin shaheen have been removed. 4. Otherwise unremarkable study. RPTAT: QQ .Mickey Yadav MD, MD Date Time Electronically viewed and signed by .Mickey Yadav MD, on 06/27/2017 20:09 .R/
[2017-06-28 02:00] VITALS: BP 120/80; RESP 20
[2017-06-28] MEDS: metroNIDAZOLE 500 MG/NS (PMX) 100 ML IVPB SCH ×3 (06:06→21:18)
--- NOTE | 2017-06-28 06:14 | PN ---
DATE: 06/27/2017 SUBJECTIVE: No complaints, has had several bowel movements today. No nausea, no vomiting. No fever, no abdominal pain. OBJECTIVE: GENERAL: Alert, awake, oriented x3. ABDOMEN: Soft, flat, no tenderness. The pig tail drain has drained 20 mL in past 24 hours including the flushed saline. The color is serosanguineous. Patient has been afebrile for, 5-6 days. Culture as mentioned has been negative so far. ASSESSMENT AND PLAN: Status post low ant. resection of rectosigmoid cancer , patient has developed fever and leukocytosis x2, and CT scan showed collection of fluid that eventually was drained percutaneously and specimen was sent for culture which grew negative, and Gram stain did not show any bacteria. It has been serosanguinous for the last 6-7 days. Patient is on antibiotics per Infectious Disease recommendations, . . Discussed with Dr. Thayer. The ultimate plan is to put the patient on a regular diet today. Also get a CT scan of the pelvis today. If it shows complete drainage of the presacral collection then we can remove the drain tomorrow and send patient home with oral antibiotics. Dictated By: Farrukh Ni MD /paola/rosy /Document#: [id number] TESSY
[2017-06-28 06:47] LABS: CALCIUM 9.7 mg/dl (8.4-10.2); CREATININE 0.93 mg/dl (0.61-1.24); POTASSIUM 4.1 mmol/L (3.5-5.1)
[2017-06-28 08:03] VITALS: BP 117/74; RESP 18
[2017-06-28] MEDS: ESCITALOPRAM 10 MG TAB PO SCH (08:40)
--- NOTE | 2017-06-28 09:09 | CONS ---
Date/Time of Note Date/Time of Note DATE: 06/28/17 TIME: 09:08 Assessment/Plan Assessment/Plan Chief Complaint/Hosp Course assessment/impression - sepsis due to pelvic abscess and abdominal incisional wound infection, resolving - Abdominal incisional wound growing E. Coli 06/14/2017 - Pelvic abscess, s/p CT guided drainage catheter placement 06/20/2017, resolving on f/u CT on 06/27/2017 - Rectal cancer, s/p laparotomy and low anterior colon resection 06/06/2017 - Normocytic anemia - Near syncope likely vasovagal 06/20/2017 - CP - troponin x2 negative - "panic" per Pt; takes lorazepam with relief recommendations: - d/c levo and metronidazole (06/18/2017-) after the last dose today - management d/w Pt and his Problems: Consultation Date/Type/Reason Admit Date/Time Jun 06, 2017 at 05:15 Initial Consult Date 06/11/17 Type of Consultation: Infectious Disease 24 HR Interval Summary Constitutional: no complaints Detailed Summary Eyes: no complaints ENT: no complaints Respiratory: no complaints Cardiovascular: no complaints Gastrointestinal: no complaints Genitourinary: no complaints Musculoskeletal: no complaints Skin: no complaints Neurologic: no complaints Psychological: other (occasional panic, takes ativan with relief) Exam/Review of Systems Vital Signs Vitals Vital Signs Date Time Temp Pulse Resp B/P Pulse Ox O2 Delivery O2 Flow Rate FiO2 06/28/17 08:03 97.6 70 18 117/74 97 06/25/17 01:26 21 Intake and Output 06/27/17 06/27/17 06/28/17 15:00 23:00 07:00 Intake Total 700 ml 2310 ml Output Total 1100 ml Balance 700 ml 1210 ml Exam Constitutional: alert, oriented, well developed Psych: nl mood/affect, no complaints Head: atraumatic, normocephalic Eyes: nl conjunctiva, nl lids ENMT: nl external ears & nose, nl nasal mucosa & septum Neck: supple Respiratory: clear to auscultation, normal air movement Cardiovascular: nl pulses, regular rate and rhythm Gastrointestinal: non-tender, other (+external drainage catheter on L side), soft Musculoskeletal: nl extremities to inspection Extremities: No edema Neurological: PRESCHOOL DISABILITY TE[employer]ER II-XII intact, nl mental status, nl speech, nl strength Skin: nl turgor, No rash or lesions Results Result Diagram: 06/27/17 0439 06/28/17 0513 Results 24 hrs Laboratory Tests Test 06/28/17 05:13 Sodium Level 138 Potassium Level 4.1 Chloride Level 102 Carbon Dioxide Level 28 Anion Gap 12 Blood Urea Nitrogen 11 Creatinine 0.93 Glucose Level 102 Calcium Level 9.7 Medications Medications Current Medications Ondansetron HCl (Zofran Inj) 4 mg Q6H PRN IV NAUSEA AND/OR VOMITING Last administered on 06/22/17 10:06; Admin Dose 4 MG; Start 06/06/17 at 12:00 Naloxone HCl (Narcan) 0.2 mg Q2M PRN IV FOR RESP RATE 8 OR LESS; Start 06/06/17 at 12:30 Phenol (Chloraseptic Throat [place]) 2 spray Q2H PRN MT SORE THROAT Last administered on 06/10/17 02:18; Admin Dose 2 SPRAY; Start 06/06/17 at 20:00 Morphine Sulfate (morphine) 2 mg Q1HWA PRN IV PAIN LEVEL 7-10 Last administered on 06/08/17 12:27; Admin Dose 2 MG; Start 06/07/17 at 01:30 Acetaminophen 650 mg 650 mg Q6H PRN PO PAIN AND OR ELEVATED TEMP Last administered on 06/17/17 22:39; Admin Dose 650 MG; Start 06/16/17 at 16:00 Levofloxacin/ Dextrose (Levaquin 750 Mg/ D5W 150 ml (Pmx)) 150 ml @ 100 mls/hr Q24H IVPB Last administered on 06/27/17 15:41; Admin Dose 100 MLS/HR; Start at 14:00 Lorazepam (Ativan) 0.5 mg Q6H PRN PO ANXIETY Last administered on 06/27/17 21: 13; Admin Dose 0.5 MG; Start 06/21/17 at 21:00 Escitalopram Oxalate 10 mg 10 mg DAILY PO Last administered on 06/28/17 08:40 ; Admin Dose 10 MG; Start 06/22/17 at 12:30 Total Parenteral Nutrition 1,000 ml @ 75 mls/hr [id number] IV ; Start 06/22/17 at 15:00; Status Future Hold Metronidazole (Flagyl 500 Mg (Pmx)) 100 ml @ 100 mls/hr Q8 IVPB Last administered on 06/28/17t 06:06; Admin Dose 100 MLS/HR; Start 06/26/17 at 14:00 Alprazolam (Xanax) 0.5 mg Q12H PRN PO ANXIETY; Start 06/27/17 at 15:00 SCOTT BUSTAMANTE M.D. Jun 28, 2017 09:09
[2017-06-28] MEDS: LORAZEPAM 0.5 MG TAB PO PRN ×2 (12:28→21:21)
--- NOTE | 2017-06-28 13:44 | PN ---
Date/Time of Note Date/Time of Note DATE: 06/28/17 TIME: 13:36 Assessment/Plan VTE Prophylaxis VTE Prophylaxis Intervention: ambulation Lines/Catheters IV [facility] Saline Lock Urinary Cath still in place: No Assessment/Plan Assessment/Plan 57 years old male status post laparotomy very low resection of rectosigmoid area for the rectosigmoid cancer and end-to-end anastomosis with shaheen. Postop patient got complicated with accumulation of presacral fluid patient had leukocytosis and fever. This was drained percutaneously by pigtail catheter. Placement in radiology patient received antibiotics Flagyl and levofloxacin. She has remained afebrile and leukocytosis normal for the past 5 days. So the pigtail drain has drained the presacral collection completely proven by CT scan which was done yesterday. Therefore today I remove the pigtail and per infectious disease today regarding the last day of antibiotics. 4 patient will be discharged today to be followed by Dr. Aguirre in the office. Subjective 24 Hr Interval Summary Free Text/Dictation No complain. Nausea no vomiting no fever. Has had bowel movements. Tolerating regular diet. No abdominal pain. CT scan has showed that the previously presacral fluid collection does not exist anymore and apparently the pigtail drain has drained it completely. Exam/Review of Systems Vital Signs Vitals Vital Signs Date Time Temp Pulse Resp B/P Pulse Ox O2 Delivery O2 Flow Rate FiO2 06/28/17 08:03 97.6 70 18 117/74 97 06/25/17 01:26 21 Intake and Output 06/27/17 06/27/17 06/28/17 15:00 23:00 07:00 Intake Total 700 ml 2310 ml Output Total 1100 ml Balance 700 ml 1210 ml Exam Awake alert oriented 3. Heart regular lungs clear abdomen flat soft no tenderness. 1.5 cm x 1 cm incisional wound is healing gradually no gross infection. Vital signs stable no fever heart rate 74. But this done today. Detailed drain has drained only 20 cc of serosanguineous fluid. Results Result Diagram: 06/27/17 0439 06/28/17 0513 Results 24 hrs Laboratory Tests Test 06/28/17 05:13 Sodium Level 138 Potassium Level 4.1 Chloride Level 102 Carbon Dioxide Level 28 Anion Gap 12 Blood Urea Nitrogen 11 Creatinine 0.93 Glucose Level 102 Calcium Level 9.7 Medications Medications Current Medications Ondansetron HCl (Zofran Inj) 4 mg Q6H PRN IV NAUSEA AND/OR VOMITING Last administered on 06/22/17 10:06; Admin Dose 4 MG; Start 06/06/17 at 12:00 Naloxone HCl (Narcan) 0.2 mg Q2M PRN IV FOR RESP RATE 8 OR LESS; Start 06/06/17 at 12:30 Phenol (Chloraseptic Throat [place]) 2 spray Q2H PRN MT SORE THROAT Last administered on 06/10/17 02:18; Admin Dose 2 SPRAY; Start 06/06/17 at 20:00 Morphine Sulfate (morphine) 2 mg Q1HWA PRN IV PAIN LEVEL 7-10 Last administered on 06/08/17 12:27; Admin Dose 2 MG; Start 06/07/17 at 01:30 Acetaminophen 650 mg 650 mg Q6H PRN PO PAIN AND OR ELEVATED TEMP Last administered on 06/17/17 22:39; Admin Dose 650 MG; Start 06/16/17 at 16:00 Levofloxacin/ Dextrose (Levaquin 750 Mg/ D5W 150 ml (Pmx)) 150 ml @ 100 mls/hr Q24H IVPB Last administered on 06/27/17 15:41; Admin Dose 100 MLS/HR; Start at 14:00; Stop 06/28/17 at 23:59 Lorazepam (Ativan) 0.5 mg Q6H PRN PO ANXIETY Last administered on 06/28/17 12: 28; Admin Dose 0.5 MG; Start 06/21/17 at 21:00 Escitalopram Oxalate 10 mg 10 mg DAILY PO Last administered on 06/28/17 08:40 ; Admin Dose 10 MG; Start 06/22/17 at 12:30 Total Parenteral Nutrition 1,000 ml @ 75 mls/hr [id number] IV ; Start 06/22/17 at 15:00; Status Future Hold Metronidazole (Flagyl 500 Mg (Pmx)) 100 ml @ 100 mls/hr Q8 IVPB Last administered on 06/28/17 06:06; Admin Dose 100 MLS/HR; Start 06/26/17 at 14:00 ; Stop 06/28/17 at 23:59 Alprazolam (Xanax) 0.5 mg Q12H PRN PO ANXIETY; Start 06/27/17 at 15:00 ISAMAR GODINEZ MD Jun 28, 2017 13:44
[2017-06-28 14:39] VITALS: BP 99/68; RESP 18
[2017-06-28] MEDS ORDERED: LORA-441 PO (14:44)
[2017-06-28] MEDS: LEVOFLOXACIN 750MG/D5W (PMX) 150 ML IVPB SCH (15:23)
--- NOTE | 2017-06-28 18:24 | PN ---
Date/Time of Note Date/Time of Note DATE: 06/28/17 TIME: 18:22 Assessment/Plan VTE Prophylaxis VTE Prophylaxis Intervention: SCD's Lines/Catheters [facility] Saline Lock Urinary Cath still in place: No Assessment/Plan Chief Complaint/Hosp Course Patient remains hemodynamically stable, tolerates diet well, denies any nausea vomiting. Anticipate discharge home after completion of antibiotics today or tomorrow in a.m. 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 Plan of care discussed with Dr. Plunkett Problems: Exam/Review of Systems Vital Signs Vitals Vital Signs Date Time Temp Pulse Resp B/P Pulse Ox O2 Delivery O2 Flow Rate FiO2 06/28/17 14:39 98.2 72 18 99/68 96 06/25/17 01:26 21 Intake and Output 06/27/17 06/27/17 06/28/17 15:00 23:00 07:00 Intake Total 700 ml 2310 ml Output Total 1100 ml Balance 700 ml 1210 ml Exam Constitutional: alert Neck: supple Respiratory: normal air movement Cardiovascular: nl pulses Gastrointestinal: other (Surgical incision), soft, pelvic abscess drain Extremities: normal pulses Results Result Diagram: 06/27/17 0439 06/28/17 0513 Results 24 hrs Laboratory Tests Test 06/28/17 05:13 Sodium Level 138 Potassium Level 4.1 Chloride Level 102 Carbon Dioxide Level 28 Anion Gap 12 Blood Urea Nitrogen 11 Creatinine 0.93 Glucose Level 102 Calcium Level 9.7 Medications Medications Current Medications Ondansetron HCl (Zofran Inj) 4 mg Q6H PRN IV NAUSEA AND/OR VOMITING Last administered on 06/22/17 10:06; Admin Dose 4 MG; Start 06/06/17 at 12:00 Naloxone HCl (Narcan) 0.2 mg Q2M PRN IV FOR RESP RATE 8 OR LESS; Start 06/06/17 at 12:30 Phenol (Chloraseptic Throat [place]) 2 spray Q2H PRN MT SORE THROAT Last administered on 06/10/17 02:18; Admin Dose 2 SPRAY; Start 06/06/17 at 20:00 Morphine Sulfate (morphine) 2 mg Q1HWA PRN IV PAIN LEVEL 7-10 Last administered on 06/08/17 12:27; Admin Dose 2 MG; Start 06/07/17 at 01:30 Acetaminophen 650 mg 650 mg Q6H PRN PO PAIN AND OR ELEVATED TEMP Last administered on 06/17/17 22:39; Admin Dose 650 MG; Start 06/16/17 at 16:00 Levofloxacin/ Dextrose (Levaquin 750 Mg/ D5W 150 ml (Pmx)) 150 ml @ 100 mls/hr Q24H IVPB Last administered on 06/28/17 15:23; Admin Dose 100 MLS/HR; Start at 14:00; Stop 06/28/17 at 23:59 Lorazepam (Ativan) 0.5 mg Q6H PRN PO ANXIETY Last administered on 06/28/17 12: 28; Admin Dose 0.5 MG; Start 06/21/17 at 21:00 Escitalopram Oxalate 10 mg 10 mg DAILY PO Last administered on 06/28/17 08:40 ; Admin Dose 10 MG; Start 06/22/17 at 12:30 Total Parenteral Nutrition 1,000 ml @ 75 mls/hr [id number] IV ; Start 06/22/17 at 15:00; Status Future Hold Metronidazole (Flagyl 500 Mg (Pmx)) 100 ml @ 100 mls/hr Q8 IVPB Last administered on 06/28/17 14:12; Admin Dose 100 MLS/HR; Start 06/26/17 at 14:00 ; Stop 06/28/17 at 23:59 Alprazolam (Xanax) 0.5 mg Q12H PRN PO ANXIETY; Start 06/27/17 at 15:00 ALEX MOON Jun 28, 2017 18:24
[2017-06-28 19:18] VITALS: BP 106/71; RESP 20
[2017-06-29 07:11] VITALS: BP 113/73; RESP 18
[2017-06-29] MEDS: LORAZEPAM 0.5 MG TAB PO PRN (08:50)
[2017-06-29] MEDS: ESCITALOPRAM 10 MG TAB PO SCH (08:51)
--- NOTE | 2017-06-29 12:14 | PDOCDIS ---
Discharge Instructions CONDITION Patient Condition: Stable HOME CARE INSTRUCTIONS: Diet Instructions: RegularSpecial Diet: soft diet ACTIVITY: Activity Restrictions: No Restrictions Slowly Increase Activity Rest between Activity Avoid heavy lifting Do not Drive Do not operate Machinery Do not operate Power Tool Avoid Heavy Housework Bathing Restrictions: Sponge Bath FOLLOW UP/APPOINTMENTS Follow-up Plan FU with PMD X 1 WEEK FU WITH surgery as recommended Call 911 or go to the nearest hospital if symptoms get worse. Plan of care DW dR Marie/staff/patient. KERRY RECINOS Jun 29, 2017 12:14
--- NOTE | 2017-06-29 12:14 | DS ---
Date/Time of Note Date/Time of Note DATE: 06/29/17 TIME: 12:14 Discharge Summary Admission/Discharge Info Admit Date/Time Jun 06, 2017 at 05:15 Discharge Date/Time Hospital Course Patient remains hemodynamically stable, tolerates diet well, denies any nausea vomiting. Anticipate discharge home after completion of antibiotics today or tomorrow in a.m. 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 Plan of care discussed with Dr. Plunkett [facility] Lorazepam* (Ativan*) 0.5 Mg Tablet, 0.5 MG PO Q6H Y for ANXIETY, #30 TAB Prov:ALEX MOON 06/28/17 Primary Care Provider Deb Aldana MD Time spent on discharge: < 30 minutes KERRY RECINOS Jun 29, 2017 12:14
--- NOTE | 2017-06-29 12:15 | DS ---
Date/Time of Note Date/Time of Note DATE: 06/29/17 TIME: 12:14 Discharge Summary Admission/Discharge Info Admit Date/Time Jun 06, 2017 at 05:15 Discharge Date/Time Hospital Course Patient remains hemodynamically stable, tolerates diet well, denies any nausea vomiting. Anticipate discharge home after completion of antibiotics today or tomorrow in a.m. 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 Plan of care discussed with Dr. Plunkett [facility] Lorazepam* (Ativan*) 0.5 Mg Tablet, 0.5 MG PO Q6H Y for ANXIETY, #30 TAB Prov:ALEX MOON 06/28/17 Primary Care Provider MD GRISEL [place] RANBIR Jun 29, 2017 12:14
== END 2017-06-29 15:25 | disposition home or self-care (01) | DRG 329 ==
LOC: REC 05:15 → MS1 13:24 → TEL 06-23 06:30 → MS2 06-26 18:50
PROVIDERS: ADMIT Surgery Surgical Oncology; ATTEND Surgery Surgical Oncology
PROC: 0DBN0ZZ Excision of Sigmoid Colon, Open Approach (ICD-10-PCS; 2017-06-06)
PROC: 0DJD8ZZ Inspection of Lower Intestinal Tract, Via Natural or Artificial Opening Endoscopic (ICD-10-PCS; 2017-06-06)
PROC: 0DBP0ZZ Excision of Rectum, Open Approach (ICD-10-PCS; principal; 2017-06-06 07:30)
PROC: 0W9J30Z Drainage of Pelvic Cavity with Drainage Device, Percutaneous Approach (ICD-10-PCS; 2017-06-20)
DX: C20 Malignant neoplasm of rectum (principal); K65.1 Peritoneal abscess; A41.51 Sepsis due to Escherichia coli [E. coli]; T81.4XXA Infection following a procedure, initial encounter; D64.9 Anemia, unspecified; F41.9 Anxiety disorder, unspecified; R55 Syncope and collapse; G47.00 Insomnia, unspecified; Z16.11 Resistance to penicillins
CPT/HCPCS: 71010; 72193; 74000; 74176; 74177; 77012; 80048; 80053; 80202; 81001; 82565; 82962; 83605; 83735; 84100; 84484; 84520; 85025; 85049; 85610; 85651; 85670; 85730; 87040; 87070; 87075; 87086; 88309; 93005; 94640; 94664; J0131; J0295; J1200; J1956; J2060; J2175; J2250; J2270; J2274; J2405; J2543; J2710; J3010; J3370; J3480; J7050; Q9967